=== PATIENT | male | born 1940 | race Caucasian/White ===

== ENCOUNTER 2020-03-29 11:48 | Inpatient (IN) | payer MEDICARE, SELFPAY ==
[2020-03-29] VITALS (34 sets, daily range): BP systolic 98–163; BP diastolic 56–115; PULSE 74–95; RESP 16–32; TEMP 35.6–36.8; O2SAT 95–99; BMI 79.4; BMI 37.8
--- NOTE | ~2020-03-29 | XR_ITS ---
EXAMINATION: XR chest 1V portable DATE: 04/15/2020 07:59 INDICATION: Leukocytosis. Congestive heart failure. Pneumonia. Dyspnea. TECHNIQUE: A single frontal view of the chest was obtained. COMPARISON: Chest 2 views 04/12/2020, chest CT 03/29/2020 FINDINGS: There are small pleural effusions. There are airspace opacities at the lung bases. No pneum othorax. Cardiomegaly is noted. Calcified left hilar lymph nodes are consistent with old granulomatou s disease. There is a left chest wall pacer with leads in the right atrium and right ventricle. There is an electronic implant in left anterior chest wall. IMPRESSION: 1. Stable small pleural effusions. 2. Stable airspace opacities at the lung bases, consistent with atelectasis or less likely pneumonia. 3. Cardiomegaly. Reviewed, dictated and finalized at location A.
--- NOTE | ~2020-03-29 | XR_ITS ---
EXAMINATION: XR chest 2V DATE: 04/12/2020 14:44 INDICATION: Congestive heart failure exacerbation TECHNIQUE: frontal and lateral views of the chest were obtained. COMPARISON: Chest radiograph dated 04/02/2020 FINDINGS: Opacities at the left mid to lower and right lower lung zones with blunting at the posterior sulci in left costophrenic angle consistent with small bilateral pleural effusions, left greater than right a nd associated basilar atelectasis and/or pneumonia. No increased interstitial pattern to suggest sign ificant pulmonary edema. No pneumothorax. Cardiomegaly. Dual lead pacemaker/AICD seen with leads proj ecting over the expected locations of the right atrium and right ventricle. Implantable cardiac mon itor projecting along the inferomedial anterior left chest wall. Mild thoracic spondylosis. IMPRESSION: 1. Small bilateral pleural effusions, left greater than right, with associated basilar atelectasis an d/or pneumonia. 2. Cardiomegaly. No definitive pulmonary edema. Reviewed, dictated and finalized at location B. IMPRESSION: 1. Small bilateral pleural effusions, left greater than right, with associated basilar atelectasis and/or pneumonia. 2. Cardiomegaly. No definitive pulmonary edema.
--- NOTE | ~2020-03-29 | CT_ITS ---
EXAMINATION: CTA chest PE protocol DATE: 03/29/2020 15:35 INDICATION: Shortness of breath TECHNIQUE: Computed tomography angiography (CTA) of the chest was performed with 100 mL Omnipaque-350 intravenous contrast timed to evaluate the pulmonary arteries. Coronal maximum intensity projection 3D-reconstructions were created by the technologist. Automated exposure control and iterative reconst ruction technique were employed. Exam dose: 1062.57 mGy-cm total exam DLP. COMPARISON: 03/19/2016 2 view chest 03/29/2020 portable AP chest FINDINGS: There is diagnostic contrast enhancement of the central pulmonary arteries and no evidence of pulmonary embolism. No thoracic aortic aneurysm. Aortic calcification. Borderline heart size. Coronary artery calcifications. Left-sided pacemaker device with leads in the right atrium and right ventricle. Left medial anterior chest wall subcutaneous clinical research monitor device . No hilar or mediastinal mass lesion or lymphadenopathy. There are calcified left hilar nodes consiste nt with old granulomatous disease. There are bilateral pleural calcifications suggesting possible prior exposure to asbestos. There are large bilateral pleural effusions. There is associated compressive atelectasis involving pr imarily the lower lobes; minimal upper lobe dependent atelectasis. Diffuse osteopenia. Compression fracture deformity of L1. IMPRESSION: No evidence of pulmonary embolism Large pleural effusion, likely secondary to congestive heart failure, associated prominent compressiv e atelectasis of the lower lobes Occasional pleural calcifications suggesting prior asbestos exposure Reviewed, dictated and finalized at Location A. Reviewed, dictated and finalized at location B. IMPRESSION: No evidence of pulmonary embolism Large pleural effusion, likely secondary to congestive heart failure, associate d prominent compressive atelectasis of the lower lobes Occasional pleural calcifications suggesting prior asbestos exposure
--- NOTE | ~2020-03-29 | XR_ITS ---
EXAMINATION: XR chest 1V portable EXAM DATE: 04/02/2020 09:02 INDICATION: CHF, shortness of breath. Possible pneumonia. TECHNIQUE: Portable AP frontal chest x-ray was obtained. Comparison is made to prior examination from 03/29/2020. FINDINGS: There is a dual lead pacemaker/AICD seen with leads projecting over the expected locations of the right atrial appendage and right ventricle. Mild cardiomegaly and pulmonary vascular congestio n. Hazy ill-defined lower lung zone opacity could be layering small pleural effusions, probably with mild superimpose edema and/or pneumonia. There is no pneumothorax suspected. There are no osseous abn ormalities identified. IMPRESSION: 1. Findings consistent with CHF exacerbation. 2. Basilar pneumonia not excludable. Reviewed, dictated and finalized at location B.
--- NOTE | ~2020-03-29 | XR_ITS ---
EXAMINATION: XR chest 1V portable DATE: 03/29/2020 13:00 INDICATION: Shortness of breath. TECHNIQUE: A single frontal view of the chest was obtained. COMPARISON: Chest 2 views 03/19/2016 FINDINGS: There are airspace opacities in right mid and lower lung zones and left lower lung zone. Th ere is a small left pleural effusion. No pneumothorax. The heart size is normal. There is a left ches t wall pacer with leads in the right atrium and right ventricle. There is an electronic implant in le ft chest wall. IMPRESSION: 1. Airspace opacities in right mid and lower lung zones and left lower lung zone, consistent with ate lectasis versus pneumonia. 2. Small left pleural effusion. Reviewed, dictated and finalized at location A. IMPRESSION: 1. Airspace opacities in right mid and lower lung zones and left lower lung zon e, consistent with atelectasis versus pneumonia. 2. Small left pleural effusion.
--- NOTE | 2020-03-29 12:02 | ED.SOB ---
HPI - SOB/Dyspnea General Chief Complaint: Shortness of Breath/Dyspnea Stated Complaint: SOB Time Seen by Provider: 03/29/20 12:02 History of Present Illness HPI Narrative: 79 yo male w/ h/o heart disease brought in by EMS from [facility] for SOB. He says that he has been having SOB for quite some time. Worse the past 2 nights. Unable to sleep. This is associated with Edema of all extremities. He had recent knee replacement surgery. He is not aware of any heart failure history, but does have extensive cardiac history any is on diuretics. He is on ticagralor and brillinta. No dark or bloody stools. Related Data Home Medications Medication Instructions Recorded Confirmed ascorbic acid (vitamin C) [Vitamin 500 mg PO DAILY 03/29/20 03/29/20 C] atorvastatin 80 mg PO DAILY 03/29/20 03/29/20 ezetimibe 10 mg PO DAILY 03/29/20 03/29/20 ferrous sulfate 325 mg PO DAILY 03/29/20 03/29/20 fludrocortisone 0.1 mg PO DAILY 03/29/20 03/29/20 furosemide 20 mg PO DAILY 03/29/20 03/29/20 furosemide [Lasix] 40 mg PO DAILY 03/29/20 03/29/20 metoprolol tartrate 25 mg PO DAILY 03/29/20 03/29/20 ondansetron HCl [Zofran] 4 mg PO Q6H PRN 03/29/20 03/29/20 oxycodone-acetaminophen 1 - 2 tablet PO Q4H PRN 03/29/20 03/29/20 potassium chloride 10 meq PO DAILY 03/29/20 03/29/20 prednisone 20 mg PO DAILY 03/29/20 03/29/20 sertraline 50 mg PO DAILY 03/29/20 03/29/20 tamsulosin 0.4 mg PO DAILY 03/29/20 03/29/20 ticagrelor [Brilinta] 90 mg PO BID 03/29/20 03/29/20 vitamin B complex 1 tablet PO DAILY 03/29/20 03/29/20 warfarin 3 mg PO DAILY 03/29/20 03/29/20 Allergies Allergy/AdvReac Type Severity Reaction Status Date / Time No Known Allergies Allergy Verified 03/29/20 12:15 Review of Systems Review of Systems: All systems reviewed & are unremarkable except as noted in HPI and below Constitutional: Constitutional: Denies chills and Denies fever(s) Cardiovascular: Cardiovascular: Denies chest pain Respiratory: Respiratory: Denies cough and Reports dyspnea Gastrointestinal: Gastrointestinal: Denies abdominal pain, Denies nausea and Denies vomiting Genitourinary: Genitourinary: Denies hematuria and Denies dysuria Neurologic: Denies dizziness and Denies numbness [facility] Past Medical History Medical History (Updated 03/30/20 @ 19:23 by Jarred Thomas MD) Adrenal insufficiency Benign prostatic hyperplasia Chronic anemia Chronic kidney disease Congestive heart failure Coronary artery disease With history of stents. Current use of intermediate manager anticoagulation On long-term warfarin for history of DVT and PE. 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 History of deep venous thrombosis or pulmonary embolus History of both DVT and PE, on long-term warfarin. Obstructive sleep apnea on CPAP Osteoarthritis Peptic ulcer (~1959) Shingles (~2011) Ventricular tachycardia Status post ICD insertion. Surgical History Surgical History (Updated 03/29/20 @ 22:03 by Gabby Douglass PA-C) History of bilateral knee arthroplasty Right: 04/11/2018. Left: 02/26/2020. History of cardiac catheterization (~01/2019) With history of stents. History of loop recorder Presence of combination internal cardiac defibrillator (ICD) and pacemaker (~01/2019) Family History Family History (Updated 03/29/20 @ 22:04 by Gabby Douglass PA-C) Father Bone cancer Social History Social History (Updated 03/29/20 @ 22:23 by Gabby Douglass PA-C) Social History: Surrogate decision maker: Kassie Garcia, spouse. Code status: Do not resuscitate. Smoking status: Former smoker Tobacco type: cigarettes and cigars Second hand tobacco smoke exposure: Yes Alcohol intake: never Substance use: never Additional living arrangements comments: Resides in [place] with his . 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 Gender identity (if verbalized by the patient): Mal
--- NOTE | 2020-03-29 12:11 | ECG_ITS ---
Measurements Intervals [place] Rate: 79 P: -12 GA: 108 QRS: 255 QRSD: 50 T: 25 QT: 294 QTc: 337 Interpretive Statements ATRIAL FIBRILLATION VENTRICULAR PREMATURE COMPLEXES RIGHT BUNDLE BRANCH BLOCK LOW QRS VOLTAGE- DIFFUSE LEADS BASELINE ARTIFACT- I, II, AVR, V1, V6 ABNORMAL ECG Electronically Signed On 03-30-2020 6:53:18 CDT by Rodrigo Padron D.O.
[2020-03-29 12:36] LABS: Basophils Percent Auto 0.1 % (0.2-1.2); Eosinophils Percent Auto 0.1 % (0-4.4); Hematocrit 31.3 % (42.0-52.0); Hemoglobin 10.5 g/dL (14.0-18.0); Immature Granulocyte Absolute 0.52 K/mm3 (0.00-0.031); Immature Granulocyte Percent A 3.4 % (0-0.5); Lymphocytes Absolute Auto 0.73 K/mm3 (0.9-3.2); Lymphocytes Percent Auto 4.8 % (18.3-44.2); Mean Corpuscular HGB Conc 33.5 g/dl (32-36); Mean Corpuscular Hemoglobin 30.3 pg (26-34); Mean Corpuscular Volume 90.5 fl (80-100); Mean Platelet Volume 9.5 fl (7.4-10.4); Monocytes Percent Auto 6.5 % (2.6-8.5); Neutrophils Percent Auto 85.1 % (45.5-73.1); Platelet Count Result 206 k/mm3 (150-375); Red Blood Count 3.46 M/mm3 (4.6-6.20); Red Cell Distribution Width 14.6 % (11.5-14.5); White Blood Count 15.3 K/mm3 (4.5-10.0)
[2020-03-29] MEDS: FUROSEMIDE INJ 100 MG/10 ML VIAL 80 MG IV PUSH (12:36)
[2020-03-29 12:43] LABS: Alanine Aminotransferase 50 U/L (4-50); Albumin Level 2.3 g/dL (3.5-5.1); Alkaline Phosphatase 122 U/L (38-126); Anion Gap 5 mmol/L (8-16); Aspartate Amino Transferase 39 U/L (17-59); Bilirubin,Total 0.8 mg/dL (0.2-1.3); Blood Urea Nitrogen 27 mg/dL (9-20); Calcium 7.9 mg/dL (8.4-10.2); Carbon Dioxide 31 mmol/L (22-30); Chloride 97 mmol/L (98-107); Estimated CRCL calculation 82 ml/min; Estimated Glomerular Filt Rate > 60; Glucose 93 mg/dL (75-110); Potassium 3.7 mmol/L (3.4-5.0); Sodium 133 mmol/L (137-145)
[2020-03-29 12:45] LABS: Prothrombin Time 21.9 Seconds (11.1-14.7)
[2020-03-29 12:46] LABS: Partial Thromboplastin Time 27.7 SECONDS (22.3-36.8)
[2020-03-29] MEDS: NITROGLYCERIN OINTMENT 1 INCH DOSE 0.5 INCH TRANSDERM (12:54)
[2020-03-29 13:00] LABS: NT Pro B Type Natriuretic Pept 10800 PG/ML (5-100); Troponin I 0.254 ng/mL (0.000-0.034)
[2020-03-29 15:55] LABS: Add Urine Microscopic? YES; Amorphous Sediment Urine Few; Appearance Urine Clear (Clear); Bilirubin Urine Negative (Negative); Blood Urine 2+ (Negative); Color Urine Straw (Yellow); Glucose Urine UA Negative (Negative); Ketones Urine Negative (Negative); Leukocyte Esterase Ur Negative LEU/UL (Negative); Mucus Urine Rare /lpf; Nitrate Urine Negative (Negative); Protein Urine 1+ mg/dL (Negative); RBC Urine >75 /hpf (0-2); Specific Grav Ur 1.009 (1.001-1.035); Squamous Epithelial Cell Urine Rare /hpf (Few); Urobilinogen Urine Negative mg/dL (<2.0); WBC Urine 0-3 /hpf
--- NOTE | 2020-03-29 17:11 | PC.NURSE ---
This patient, Magnus Garcia, was admitted to Intensive Care Unit-1. Patient/family oriented to hospital policies and general routines including ID bracelet, bed and alarms, visiting hours, pain management, procedures, bathroom and other care routines, personal items, smoking policy, room service/diet, and visiting hours. Valuables list has been completed. Information on how to activate the Rapid Response Team has been discussed. Patient/Family are encouraged to report perceived risks to care and to ask questions if they do not understand what they are told or what they should do.
[2020-03-29 19:16] LABS: Troponin I 0.223 ng/mL (0.000-0.034)
--- NOTE | 2020-03-29 19:30 | PM.IMHP ---
H&P: HPI History of Present Illness Date/Time: 03/29/20 19:30 <Gabby Douglass PA-C - Last Filed: 03/30/20 00:21> Chief complaint: Shortness of breath. <Gabby Douglass PA-C - Last Filed: 03/30/20 00:21> Narrative: Magnus Garcia is a 79-year-old male with multiple medical problems including coronary artery disease with history of stents, ventricular tachycardia status post PM/ICD insertion, congestive heart failure, history of DVT and pulmonary embolism on long-term warfarin, chronic kidney disease, recent diagnosis of adrenal insufficiency on prednisone and fludrocortisone, and obstructive sleep apnea who presented to the emergency department earlier today via EMS from [facility] for evaluation of shortness of breath. He gets a majority of his care in [place] but reports that he did not want to be transferred there today because ?I just felt so bad.? He is currently undergoing rehab at [facility] after left knee replacement on 02/26/2020, done at [facility]. I did review his discharge summary and it looks like he had a complicated postoperative course including severe hypotension for several hours with subsequent acute kidney injury requiring dialysis x1, acute blood loss anemia requiring transfusion. It looks like he was also started on prednisone 10 mg daily for presumed adrenal insufficiency looking through his medications now, his prednisone has now doubled to 20 mg daily and he has been started on fludrocortisone as well. In any event, at baseline it sounds as though he has chronic dyspnea on exertion which unfortunately has gotten worse the past several weeks to the point where it sounds as though he was in near respiratory extremis this morning. He has not slept well the past couple of days due to orthopnea and also notes ever increasing edema, now up to the flanks. He assumes that he is getting his medications correctly at [facility], but admits that he does not ask what he is being given. He has not been given a heart healthy diet at the rehab facility but he says that he never adds extra salt to his food. He states compliance with his CPAP. He has not had chest pain, pleuritic pain, or palpitations. He denies cough, cold and flu symptoms, fever, and sick contacts. No nausea or vomiting. <Gabby Douglass PA-C - Last Filed: 03/30/20 00:21> Review of Systems Review of Systems: Narrative: Twelve systems were reviewed with pertinent positives and negatives as per HPI. He has episodes of occasional lightheadedness/dizziness. He has not had any recent syncopal episodes, with the last episode of being just prior to his ICD being inserted. No fever, chills, or sweats. He denies headache. No sinus congestion, rhinorrhea, otalgia, or odynophagia. Denies dysphagia and concerns for aspiration. No known history of liver disease or ascites. He has not noticed a change in urine output. No dysuria. He has not had much pain in his left knee. He is doing okay with therapy, ambulating with a walker however he is somewhat limited by his shortness of breath. Except as documented, all other systems were reviewed and are negative. <Gabby Douglass PA-C - Last Filed: 03/30/20 00:21> [facility] Past Medical History Medical History: Medical History (Updated 03/29/20 @ 22:32 by Gabby Douglass PA-C) Adrenal insufficiency Benign prostatic hyperplasia Chronic anemia Chronic kidney disease Congestive heart failure Coronary artery disease With history of stents. Current use of jail anticoagulation On long-term warfarin for history of DVT and PE. 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 History of deep venous thrombosis or pulmonary embolus History of both DVT and PE, on long-term warfarin. Obstructive sleep apnea on CPAP Osteoarthritis Peptic ulcer (~1959) Shingles (~2011) Ventricular tachycardia Status post ICD insertion. <Gabby Douglass PA-C - Last Filed: 03/30/20 00:21> [place]
[2020-03-29 20:56] LABS: Troponin I 0.237 ng/mL (0.000-0.034)
[2020-03-29 21:04] LABS: Magnesium 1.7 mg/dL (1.6-2.3); Potassium 3.4 mmol/L (3.4-5.0)
[2020-03-29] MEDS: POTASSIUM CHLORIDE 20 MEQ PACKET (FOR LIQUID) PO (22:13)
[2020-03-29] MEDS: MAGNESIUM SULF 1 GM/D5W 100 ML 1 GM/100 ML BAG IVPB (22:13)
[2020-03-30] VITALS (19 sets, daily range): BP systolic 88–124; BP diastolic 53–65; PULSE 75–99; RESP 12–20; TEMP 36.1–36.9; O2SAT 95–99
[2020-03-30 04:41] LABS: Basophils Percent Auto 0.1 % (0.2-1.2); Eosinophils Absolute Auto 0.1 K/mm3 (0-0.3); Eosinophils Percent Auto 0.4 % (0-4.4); Hematocrit 28.1 % (42.0-52.0); Hemoglobin 9.5 g/dL (14.0-18.0); Immature Granulocyte Absolute 0.25 K/mm3 (0.00-0.031); Immature Granulocyte Percent A 1.8 % (0-0.5); Lymphocytes Absolute Auto 1.18 K/mm3 (0.9-3.2); Lymphocytes Percent Auto 8.4 % (18.3-44.2); Mean Corpuscular HGB Conc 33.8 g/dl (32-36); Mean Corpuscular Hemoglobin 30.2 pg (26-34); Mean Corpuscular Volume 89.2 fl (80-100); Mean Platelet Volume 9.3 fl (7.4-10.4); Monocytes Absolute Auto 1.4 K/mm3 (0.1-0.6); Monocytes Percent Auto 10.2 % (2.6-8.5); Neutrophils Absolute Auto 11.1 K/mm3 (1.3-6.7); Neutrophils Percent Auto 79.1 % (45.5-73.1); Platelet Count Result 167 k/mm3 (150-375); Red Blood Count 3.15 M/mm3 (4.6-6.20); Red Cell Distribution Width 14.6 % (11.5-14.5)
[2020-03-30 04:55] LABS: Alanine Aminotransferase 43 U/L (4-50); Alkaline Phosphatase 101 U/L (38-126); Anion Gap -1 mmol/L (8-16); Aspartate Amino Transferase 34 U/L (17-59); Bilirubin,Total 0.5 mg/dL (0.2-1.3); Blood Urea Nitrogen 26 mg/dL (9-20); Calcium 7.9 mg/dL (8.4-10.2); Carbon Dioxide 34 mmol/L (22-30); Chloride 99 mmol/L (98-107); Estimated CRCL calculation 101 ml/min; Estimated Glomerular Filt Rate > 60; Glucose 86 mg/dL (75-110); Phosphorus 3.4 mg/dL (2.5-4.5); Potassium 3.3 mmol/L (3.4-5.0); Sodium 132 mmol/L (137-145)
[2020-03-30] MEDS: POTASSIUM CHLORIDE 20 MEQ PACKET (FOR LIQUID) 40 MEQ PO (05:56)
[2020-03-30] MEDS: TAMSULOSIN HCL 0.4 MG CAPSULE PO (08:10)
[2020-03-30] MEDS: EZETIMIBE 10 MG TABLET PO (08:10)
[2020-03-30] MEDS: VITAMIN B COMPLEX CAPSULE 1 CAP PO (08:10)
[2020-03-30] MEDS: POTASSIUM CHLORIDE 10 MEQ TABLET.ER PO (08:11)
[2020-03-30] MEDS: FLUDROCORTISONE ACETATE 0.1 MG TABLET PO (08:11)
[2020-03-30] MEDS: predniSONE 20 MG TABLET PO (08:11)
[2020-03-30] MEDS: ASCORBIC ACID 500 MG TABLET PO (08:11)
[2020-03-30] MEDS: ATORVASTATIN 40 MG TABLET 80 MG PO (08:11)
[2020-03-30] MEDS: SERTRALINE HCL 50 MG TABLET PO (08:11)
[2020-03-30] MEDS: FERROUS SULFATE 324 MG TABLET PO (08:11)
[2020-03-30] MEDS: METOPROLOL TARTRATE 25 MG TABLET PO (08:12)
[2020-03-30] MEDS: TICAGRELOR 90 MG TABLET PO ×2 (08:12→17:39)
[2020-03-30] MEDS: FUROSEMIDE INJ 40 MG/4 ML VIAL 20 MG IV PUSH ×2 (08:12→20:18)
--- NOTE | 2020-03-30 10:29 | PM.CNCAR ---
Assessment and Plan Additional Plan 79-year-old man reporting history of ischemic heart disease appears to have chronic persistent atrial fibrillation and PCI in a of multi multi vessels just over 1 year ago at another hospital. He presents here with the obvious picture of volume overload in biventricular congestive heart failure. He is on appropriate medical regimen although it is unusual that he is not on an KAITLIN-inhibitor or ARB and is also unusual in my opinion that he is taking both furosemide and fludrocortisone. I am going to recommend stopping the fludrocortisone at this time as it makes no sense to be giving him volume expanders at this moment. I do not believe that he is a candidate for ischemia evaluation given his history particularly given his desire to be do not resuscitate status. There is no clinical evidence in my opinion of an acute coronary syndrome. 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 It is his impression he has an appointment with Dr. Murray on of next week. It is certainly possible that he will be discharged before that time Thien Mederos MD [facility] History of Present Illness History of Present Illness Consult date/time: 03/30/20 10:29 Consult reason: congestive heart failure Reason For Visit: Shortness of breath. Narrative: This is a 79-year-old gentleman who is admitted to the hospital with picture of volume overload and CHF I am asked to see him by the hospitalist to assist with his care while he is here at [facility]. He has a rather complex cardiac history and is unknown to the physicians here at [facility] as he receives none of his medical or cardiac care in this institution. The patient states that he came into the emergency room last night at the request of his family because of symptoms of progressively worsening volume overload significant lower extremity edema and shortness of breath which has been worsening for the last several weeks. He is not having any symptoms of chest pain. He reports that he is feeling better than he was last evening after receiving some IV furosemide last night. He also had troponin levels done which prompted requesting me to see him in consultation which are minimally elevated but not in a pattern suggestive of an acute coronary syndrome and once again he is not having any chest pain. Patient states that he has a history of coronary artery disease which was identified in January of 2019 at [facility]. He states he was hospitalized there and occur 1 or to other hospitals in the to 3 months prior to that with syncopal episodes that were of unclear etiology. He had a loop recorder placed and he then had a no other syncopal episode with a significant pause and he was told to come to the hospital. He states that a pacemaker/ICD device was placed he underwent a cardiac catheterization which demonstrated multivessel coronary artery disease he was treated by Dr. Murray who according to the patient performed a multivessel intervention he was also seen by the resident in diagnostic radiology, Dr. Watts at [facility] and had his pacemaker ICD device placed there. He follows with these physicians actively. He can't really tell me much about his left ventricular systolic function in terms of that part of his history he apparently also has atrial fibrillation and presumably for that reason is anticoagulated with warfarin. His medical regimen for all of this includes atorvastatin, Zetia, furosemide, fludrocortisone, metoprolol and ticagrelor. He is also on warfarin. Patient has significant mild pulmonary congestion and bilateral pleural effusions noted on CT scan interestingly the pleural effusions were not obvious to me on his plain chest x-ray. In this situation where seeing him in consultation. A at the moment his standard medical regimen has been continued he is receiving fu
[2020-03-30 13:45] LABS: SARS-CoV-2 RNA PCR Negative
--- NOTE | 2020-03-30 16:12 | PM.IMPN ---
Progress Note: A&P Assessment and Plan (1) Acute exacerbation of congestive heart failure: Code(s): I50.9 - Heart failure, unspecified Status: Acute Assessment and Plan: 03/30/20 16:12 patient is a 79-year-old male with history of multivessel coronary artery disease with ICD suggesting most likely patient has significant systolic dysfunction, also pacemaker and history and Atrial fibrillation for which patient is taking warfarin, patient presented emergency department with a complaint shortness of breath lower extremity edema patient states even slight movement a.m. talking causes him to become short of breath, significant orthopnea has not been able to sleep very well last couple of nights, normally patient is seen at [facility] with his change lead and primary care providers however he presented to the hospital because he was quite symptomatic, diuresed with IV Lasix, is seen by the Cardiology agrees with current management him once patient is clinically stable he can be followed up with his change lead, plan is to diurese the patient have have PT OT evaluate the patient once clinically stable. patient was tested for COVID-19 is negative (2) Anasarca: Code(s): R60.1 - Generalized edema Status: Acute Assessment and Plan: most likely secondary to volume overload from congestive heart failure continue to monitor (3) Current use of termite inspector anticoagulation: Code(s): Z79.01 - termite inspector (current) use of anticoagulants Status: Acute Assessment and Plan: patient is taking warfarin for atrial fibrillation will monitor INR (4) Chronic kidney disease: Code(s): N18.9 - Chronic kidney disease, unspecified Status: Acute Assessment and Plan: acute on chronic kidney disease patient is being diuresed will closely monitor patient kidney function (5) Chronic anemia: Code(s): D64.9 - Anemia, unspecified Status: Acute Assessment and Plan: patient clinically stable (6) Obstructive sleep apnea on CPAP: Code(s): G47.33 - Obstructive sleep apnea (adult) (pediatric); Z99.89 - Dependence on other enabling machines and devices Status: Acute Assessment and Plan: will continue CPAP from (7) Adrenal insufficiency: Code(s): E27.40 - Unspecified adrenocortical insufficiency Status: Acute Assessment and Plan: patient is being treated with steroid (8) Coronary artery disease: Code(s): I25.10 - Atherosclerotic heart disease of [place] coronary artery without angina pectoris Status: Acute Assessment and Plan: patient with a multivessel coronary artery disease on ICD suggested significant systolic dysfunction (9) Benign prostatic hyperplasia: Code(s): N40.0 - Benign prostatic hyperplasia without lower urinary tract symptoms Status: Acute Assessment and Plan: will continue home regimen (10) Elevated troponin: Code(s): R77.8 - Other specified abnormalities of plasma proteins Status: Acute Assessment and Plan: elevated tropes most likely demand ischemia unlikely acute coronary syndrome patient is seen by change lead does not recommend any ischemic workup Additional Plan The patient has been admitted to the hospitalist service for further treatment of CHF exacerbation, etiology of which may be due to recent hospitalization requiring IV fluid resuscitation, dietary indiscretion, the addition of prednisone and fludrocortisone, and/or dietary indiscretion. With diffuse anasarca and low total protein and albumin, concerns for nephrotic syndrome however there is only 1+ protein in his urine. He will be diuresed as his blood pressure allows close monitoring of volume status. I am not certain if diuresing will be enough to improve his pleural effusion, and he may need a thoracentesis but not at this time as he is anticoagulated. Given the soft blood pressures I will
--- NOTE | 2020-03-30 16:39 | PC.NURSE ---
Patient transferred to room 242 at 1615, report given to Lucila PICKARD, all belongings sent with patient
[2020-03-30] MEDS: WARFARIN (*PBKC) 3 MG TABLET PO (17:39)
[2020-03-30 23:08] LABS: Free T4 Free Thyroxine Reflex 1.72 ng/dL (0.78-2.19)
[2020-03-31] VITALS (14 sets, daily range): BP systolic 91–138; BP diastolic 58–98; PULSE 57–90; RESP 16–22; TEMP 35.8–36.8; O2SAT 94–99
[2020-03-31 00:08] LABS: Total Triiodothyronine (T3) 0.58 NG/ML (0.97-1.69)
[2020-03-31 05:24] LABS: Hematocrit 29.1 % (42.0-52.0); Hemoglobin 9.5 g/dL (14.0-18.0); Mean Corpuscular HGB Conc 32.6 g/dl (32-36); Mean Corpuscular Hemoglobin 29.8 pg (26-34); Mean Corpuscular Volume 91.2 fl (80-100); Mean Platelet Volume 9.7 fl (7.4-10.4); Platelet Count Result 159 k/mm3 (150-375); Red Blood Count 3.19 M/mm3 (4.6-6.20); Red Cell Distribution Width 14.5 % (11.5-14.5); White Blood Count 13.9 K/mm3 (4.5-10.0)
[2020-03-31 05:43] LABS: Anion Gap 1 mmol/L (8-16); Blood Urea Nitrogen 26 mg/dL (9-20); Calcium 7.9 mg/dL (8.4-10.2); Carbon Dioxide 33 mmol/L (22-30); Chloride 99 mmol/L (98-107); Estimated CRCL calculation 114 ml/min; Estimated Glomerular Filt Rate > 60; Glucose 90 mg/dL (75-110); Potassium 3.8 mmol/L (3.4-5.0); Sodium 133 mmol/L (137-145)
[2020-03-31] MEDS: FERROUS SULFATE 324 MG TABLET PO (09:17)
[2020-03-31] MEDS: POTASSIUM CHLORIDE 10 MEQ TABLET.ER PO (09:18)
[2020-03-31] MEDS: predniSONE 20 MG TABLET PO (09:18)
[2020-03-31] MEDS: ATORVASTATIN 40 MG TABLET 80 MG PO (09:18)
[2020-03-31] MEDS: EZETIMIBE 10 MG TABLET PO (09:18)
[2020-03-31] MEDS: ASCORBIC ACID 500 MG TABLET PO (09:18)
[2020-03-31] MEDS: METOPROLOL TARTRATE 25 MG TABLET PO (09:19)
[2020-03-31] MEDS: FUROSEMIDE INJ 40 MG/4 ML VIAL 20 MG IV PUSH ×2 (09:19→20:19)
[2020-03-31] MEDS: VITAMIN B COMPLEX CAPSULE 1 CAP PO (09:20)
[2020-03-31] MEDS: SERTRALINE HCL 50 MG TABLET PO (09:20)
[2020-03-31] MEDS: TICAGRELOR 90 MG TABLET PO ×2 (09:20→17:51)
[2020-03-31] MEDS: TAMSULOSIN HCL 0.4 MG CAPSULE PO (09:20)
--- NOTE | 2020-03-31 11:03 | PM.PNCARD ---
Progress Note: A&P Additional Plan 79-year-old man with: Longstanding ischemic heart disease presenting with volume overload. Patient is being managed with intravenous furosemide and seems to be responding quite well. We will continue this for at least another day or 2 and then he should be able to be discharged for follow-up with his established physicians. Thien Mederos MD [facility] Subjective Date/time seen: Date of service:03/31/20 11:03 Interval history: Follow-up visit in this 79-year-old man with shortness of breath / volume overload. Underlying ischemic heart disease receives his care elsewhere. Patient states he is feeling reasonably well today he is in the bedside chair with his feet elevated. Appears to have been diuresing fairly well. Would like to be discharged before his established appointment with his physician middle of this coming week Exam Const: General: comfortable and no acute distress HENMT: Mouth: Yes moist mucous membranes Eyes: Sclera: sclerae normal Neck: Neck: supple Other: difficult to assess JVD given his body habitus Resp: Effort & Inspection: normal respiratory effort Other: breath sounds relatively clear auscultated anteriorly S the patient was in the bedside chair Cardio: Rate: regular rate GI: Auscultation: normal bowel sounds Skin: General skin exam: normal color Neuro: Cognition (Neuro): normal cognition Extrem: Other: patient with severe bilateral lower extremity edema appears to be some better than yesterday and is soft Objective Data Vital Signs Vital Signs: Vital Signs - 24 hr 03/30/20 12:00 03/30/20 14:00 03/30/20 16:00 Temperature 36.3 C L 36.9 C Pulse Rate 89 87 80 Respiratory Rate 18 20 Blood Pressure 98/64 L 104/57 L Pulse Oximetry 98 97 03/30/20 18:00 03/30/20 20:00 03/30/20 21:00 Temperature 36.3 C L 36.6 C Pulse Rate 87 96 76 Respiratory Rate 20 20 Blood Pressure 124/53 L 102/60 Pulse Oximetry 95 95 03/30/20 21:33 03/31/20 00:00 03/31/20 03:13 Temperature 35.9 C L Pulse Rate 90 90 79 Respiratory Rate 17 20 19 Blood Pressure 109/63 Pulse Oximetry 95 99 97 03/31/20 04:00 03/31/20 06:00 03/31/20 09:15 Temperature 36.8 C 35.8 C L Pulse Rate 76 86 57 L Respiratory Rate 22 H 18 Blood Pressure 113/70 91/73 L Pulse Oximetry 98 97 03/31/20 09:19 Temperature Pulse Rate 76 Respiratory Rate Blood Pressure Pulse Oximetry Intake/Output Intake/Output: Intake & Output 03/28/20 03/29/20 03/30/20 03/31/20 23:59 23:59 23:59 23:59 Intake Total 1000 1300 390 Output Total 2500 1225 750 Balance -1500 75 -360 Meds/Results Medications: Active Medications Generic Name Dose Route Start Last Admin Trade Name Freq PRN Reason Stop Dose Admin Ascorbic Acid 500 mg 03/30/20 09:00 03/31/20 09:18 Vitamin C PO 04/29/20 09:01 500 mg DAILY CHARAN Administration Atorvastatin Calcium 80 mg 03/30/20 09:00 03/31/20 09:18 Lipitor PO 80 mg DAILY CHARAN Administration Ezetimibe 10 mg 03/30/20 09:00 03/31/20 09:18 Zetia PO 10 mg DAILY CHARAN Administration Ferrous Sulfate 324 mg 03/30/20 08:00 03/31/20 09:17 Ferrous Sulfate PO 324 mg DAILY@0800 CHARAN Administration Furosemide 20 mg 03/30/20 09:00 03/31/20 09:19 Lasix Inj IV PUSH 20 mg Q12HR CHARAN Administration Metoprolol Tartrate 25 mg 03/30/20 09:00 03/31/20 09:19 Lopressor PO 25 mg DAILY CHARAN Administration Miconazole Nitrate 1 applic 03/30/20 21:00 03/31/20 09:20 [place] TOPICAL 1 applic Q12HR CHARAN Administration Ondansetron HCl 4 mg 03/29/20 23:09 Zofran Odt PO Q6H PRN Nausea Potassium Chloride 10 meq 03/30/20 08:00 03/31/20 09:18 Kcl Tablet PO 10 meq DAILY@0800 CHARAN Administration Prednisone 20 mg 03/30/20 08:00 03/31/20 09:18 Prednisone PO 20 mg DAILY@0800 CHARAN Administration Sertraline HCl 50 mg 03/30/20 09:00 03/31/20 09:20 Zo
--- NOTE | 2020-03-31 11:19 | PM.IMPN ---
Progress Note: A&P Assessment and Plan (1) Acute exacerbation of congestive heart failure: Code(s): I50.9 - Heart failure, unspecified Status: Acute Assessment and Plan: 03/31/20 11:19patient is a 79-year-old male with history of multivessel coronary artery disease with ICD suggesting most likely patient has significant systolic dysfunction, also pacemaker and history and Atrial fibrillation for which patient is taking warfarin, patient presented emergency department with a complaint shortness of breath lower extremity edema patient states even slight movement a.m. talking causes him to become short of breath, significant orthopnea has not been able to sleep very well last couple of nights, normally patient is seen at [facility] with his shader and toner and primary care providers however he presented to the hospital because he was quite symptomatic, Today on 03/31 patient being diuresed with IV Lasix, his symptoms are slightly better, instructed patient to limit water intake and will keep his lower extremities elevated, he is seen by the Cardiology agrees with current management, once patient is clinically stable he can be followed up with his shader and toner, plan is to diurese the patient have have PT OT evaluate the patient once clinically stable. 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: Code(s): Z79.01 - exterminator termite (current) use of anticoagulants Status: Acute Assessment and Plan: patient is taking warfarin for atrial fibrillation will monitor INR (4) Chronic kidney disease: Code(s): N18.9 - Chronic kidney disease, unspecified Status: Acute Assessment and Plan: acute on chronic kidney disease patient is being diuresed will closely monitor patient kidney function (5) Chronic anemia: Code(s): D64.9 - Anemia, unspecified Status: Acute Assessment and Plan: patient clinically stable (6) Obstructive sleep apnea on CPAP: Code(s): G47.33 - Obstructive sleep apnea (adult) (pediatric); Z99.89 - Dependence on other enabling machines and devices Status: Acute Assessment and Plan: will continue CPAP from (7) Adrenal insufficiency: Code(s): E27.40 - Unspecified adrenocortical insufficiency Status: Acute Assessment and Plan: patient is being treated with steroid (8) Coronary artery disease: Code(s): I25.10 - Atherosclerotic heart disease of [place] coronary artery without angina pectoris Status: Acute Assessment and Plan: patient with a multivessel coronary artery disease on ICD suggested significant systolic dysfunction (9) Benign prostatic hyperplasia: Code(s): N40.0 - Benign prostatic hyperplasia without lower urinary tract symptoms Status: Acute Assessment and Plan: will continue home regimen (10) Elevated troponin: Code(s): R77.8 - Other specified abnormalities of plasma proteins Status: Acute Assessment and Plan: elevated tropes most likely demand ischemia unlikely acute coronary syndrome patient is seen by shader and toner does not recommend any ischemic workup Additional Plan The patient has been admitted to the hospitalist service for further treatment of CHF exacerbation, etiology of which may be due to recent hospitalization requiring IV fluid resuscitation, dietary indiscretion, the addition of prednisone and fludrocortisone, and/or dietary indiscretion. With diffuse anasarca and low total protein and albumin, concerns for nephrotic syndrome however there is only 1+ protein in his urine. He will be diuresed as his blood pressure allows close monitoring of volume status. I am not certain if diuresing will be enoug
[2020-03-31] MEDS: WARFARIN (*PBKC) 3 MG TABLET PO (17:51)
[2020-04-01] VITALS (12 sets, daily range): BP systolic 99–118; BP diastolic 58–69; PULSE 70–89; RESP 14–22; TEMP 35.9–36.3; O2SAT 95–100
[2020-04-01 07:49] LABS: Hematocrit 29.1 % (42.0-52.0); Mean Corpuscular HGB Conc 34.4 g/dl (32-36); Mean Corpuscular Hemoglobin 30.2 pg (26-34); Mean Corpuscular Volume 87.9 fl (80-100); Mean Platelet Volume 9.9 fl (7.4-10.4); Platelet Count Result 161 k/mm3 (150-375); Red Blood Count 3.31 M/mm3 (4.6-6.20); Red Cell Distribution Width 14.6 % (11.5-14.5)
[2020-04-01 08:28] LABS: Anion Gap 2 mmol/L (8-16); Blood Urea Nitrogen 26 mg/dL (9-20); Carbon Dioxide 30 mmol/L (22-30); Chloride 101 mmol/L (98-107); Estimated CRCL calculation 135 ml/min; Estimated Glomerular Filt Rate > 60; Glucose 78 mg/dL (75-110); Potassium 4.3 mmol/L (3.4-5.0); Sodium 133 mmol/L (137-145)
[2020-04-01] MEDS: TICAGRELOR 90 MG TABLET PO ×2 (09:28→16:48)
[2020-04-01] MEDS: POTASSIUM CHLORIDE 10 MEQ TABLET.ER PO (09:28)
[2020-04-01] MEDS: VITAMIN B COMPLEX CAPSULE 1 CAP PO (09:28)
[2020-04-01] MEDS: TAMSULOSIN HCL 0.4 MG CAPSULE PO (09:28)
[2020-04-01] MEDS: EZETIMIBE 10 MG TABLET PO (09:28)
[2020-04-01] MEDS: ASCORBIC ACID 500 MG TABLET PO (09:28)
[2020-04-01] MEDS: predniSONE 20 MG TABLET PO (09:28)
[2020-04-01] MEDS: ATORVASTATIN 40 MG TABLET 80 MG PO (09:29)
[2020-04-01] MEDS: METOPROLOL TARTRATE 25 MG TABLET PO (09:29)
[2020-04-01] MEDS: FUROSEMIDE INJ 40 MG/4 ML VIAL 20 MG IV PUSH ×2 (09:29→22:03)
[2020-04-01] MEDS: SERTRALINE HCL 50 MG TABLET PO (09:29)
[2020-04-01] MEDS: FERROUS SULFATE 324 MG TABLET PO (09:30)
--- NOTE | 2020-04-01 12:09 | PM.IMPN ---
Progress Note: A&P Assessment and Plan (1) Acute exacerbation of congestive heart failure: Code(s): I50.9 - Heart failure, unspecified Status: Acute Assessment and Plan: 04/01/20 12:09 patient is a 79-year-old male with history of multivessel coronary artery disease with ICD suggesting most likely patient has significant systolic dysfunction, also pacemaker and history and Atrial fibrillation for which patient is taking warfarin, patient presented emergency department with a complaint shortness of breath lower extremity edema patient states even slight movement or talking causes him to become short of breath, significant orthopnea, has not been able to sleep very well last couple of nights, normally patient is seen at [facility] with his residential youth counselor and primary care providers however he presented to the hospital because he was quite symptomatic, on 03/31 patient being diuresed with IV Lasix, his symptoms are slightly better, instructed patient to limit water intake and will keep his lower extremities elevated, he is seen by the Cardiology agrees with current management, Today patient still complains of Shortness of breath, feels quite swallen, patient is is currently treated with Lasix 20 mg IV b.i.d., will give 1 time dose of Lasix 40 mg IV and will monitor patient's urine output, plan is to diurese the patient have have PT/OT evaluate the patient once clinically stable will discharge him back to his residential youth counselor. 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 Status: Acute Assessment and Plan: patient is taking warfarin for atrial fibrillation will monitor INR (4) Chronic kidney disease: Code(s): N18.9 - Chronic kidney disease, unspecified Status: Acute Assessment and Plan: acute on chronic kidney disease patient is being diuresed will closely monitor patient kidney function (5) Chronic anemia: Code(s): D64.9 - Anemia, unspecified Status: Acute Assessment and Plan: patient clinically stable (6) Obstructive sleep apnea on CPAP: Code(s): G47.33 - Obstructive sleep apnea (adult) (pediatric); Z99.89 - Dependence on other enabling machines and devices Status: Acute Assessment and Plan: will continue CPAP from (7) Adrenal insufficiency: Code(s): E27.40 - Unspecified adrenocortical insufficiency Status: Acute Assessment and Plan: patient is being treated with steroid (8) Coronary artery disease: Code(s): I25.10 - Atherosclerotic heart disease of [place] coronary artery without angina pectoris Status: Acute Assessment and Plan: patient with a multivessel coronary artery disease on ICD suggested significant systolic dysfunction (9) Benign prostatic hyperplasia: Code(s): N40.0 - Benign prostatic hyperplasia without lower urinary tract symptoms Status: Acute Assessment and Plan: will continue home regimen (10) Elevated troponin: Code(s): R77.8 - Other specified abnormalities of plasma proteins Status: Acute Assessment and Plan: elevated tropes most likely demand ischemia unlikely acute coronary syndrome patient is seen by residential youth counselor does not recommend any ischemic workup Subjective Date/time seen: 04/01/20 12:09 patient is a 79-year-old male with history of multivessel coronary artery disease with ICD suggesting most likely patient has significant systolic dysfunction, also pacemaker and history and Atrial fibrillation for which patient is taking warfarin, patient presented emergency department with a complaint shortness of breath lower extremity edema
[2020-04-01 12:32] LABS: INR 1.7; Prothrombin Time 19.7 Seconds (11.1-14.7)
[2020-04-01] MEDS: FUROSEMIDE INJ 40 MG/4 ML VIAL IV PUSH (12:49)
--- NOTE | 2020-04-01 14:08 | PM.PNCARD ---
Progress Note: A&P Assessment and Plan (1) Anasarca: Code(s): R60.1 - Generalized edema Status: Acute Assessment and Plan: Long standing ischemic heart disease presenting with volume overload. Still has a considerable large amount of edema. Weeping at times. Being gently diuresed due to soft blood pressure. Did receive an extra 40 mg of Lasix today. Continue accurate I&O. Monitor renal function electrolytes (2) Acute exacerbation of congestive heart failure: Code(s): I50.9 - Heart failure, unspecified Status: Acute Assessment and Plan: ischemic cardiomyopathies as above. (3) Coronary artery disease: Qualifiers: Coronary Disease-Associated Artery/Lesion type: [place] artery [place] vs. 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 Given additional 1 mg of warfarin this afternoon. Monitor INR. Additional Plan Plan discussed with Dr. Mederos 1420 04/01/2020 Subjective Date/time seen: 04/01/20 14:08 Interval history: Follow-up for: shortness of breath / volume overload. Underlying ischemic heart disease. Date of service: 04/01/2020 Subjective: Tired. Difficulty with moving to do any activity. Shortness of breath is better but still gets short of breath with exertional activity. On room air at this time. Denied chest discomfort. Still has a lot of swelling. Some areas of weeping. Lightheaded if gets up too quickly. Review of Systems Constitutional: Constitutional: Denies chills, Reports fatigue and Reports weakness Eyes: Eyes: Denies blurry vision ENT: Reports Normal hearing present Cardiovascular: Cardiovascular: Denies chest pain, Denies rapid heart rate, Reports edema and Reports dyspnea Respiratory: Respiratory: Reports dyspnea and Denies wheezing Gastrointestinal: Gastrointestinal: Denies abdominal pain and Reports bloating ( Improved) Genitourinary: Genitourinary: Denies hematuria Musculoskeletal: Musculoskeletal: Denies back pain and Reports arthralgias ( left knee postop) Integumentary/Breasts: Skin/Breast: Denies erythema and Denies rash Neurologic: Reports Normal hearing present Psychiatric: Psychiatric: Denies anxiety and Denies depression Endocrine: Endocrine: Reports fatigue Hematologic/Lymphatic: Hematologic/Lymphatic: Denies easy bleeding and Denies easy bruising Allergic/Immunologic: Allergic/Immunologic: Denies throat swelling and Denies tongue swelling Exam Const: General: comfortable and no acute distress Other: Obese white male relatively comfortable appearing in bed. No distress. HENMT: Mouth: Yes moist mucous membranes Eyes: Sclera: sclerae normal Pupils: Equal, round and reactive pupils present Neck: Neck: supple Other: Difficult to assess JVD given his body habitus Resp: Effort & Inspection: normal respiratory effort Auscultation: diminished lung sounds bilateral throughout Cardio: Rate: regular rate Rhythm: abnormal rhythm irregularly irregular GI: Inspection: obesity GI Palp: Yes Soft to palpation Auscultation: normal bowel sounds Urinary Catheter: Urinary Catheter: patent and draining and urine clear Skin: General skin exam: normal color Lesions: no lesions Rashes: no rashes Neuro: Cranial nerves: Yes Equal, round and reactive pupils present Cognition (Neuro): normal cognition Extrem: Other: Severe bilateral lower extremity edema. Edema exte
[2020-04-01] MEDS: WARFARIN (*PBKC) 3 MG TABLET PO (17:39)
[2020-04-02] VITALS (13 sets, daily range): BP systolic 96–106; BP diastolic 56–65; PULSE 75–97; RESP 14–20; TEMP 36–36.2; O2SAT 95–100
[2020-04-02 05:49] LABS: Hematocrit 32.1 % (42.0-52.0); Hemoglobin 10.6 g/dL (14.0-18.0); Mean Corpuscular Hemoglobin 30.5 pg (26-34); Mean Corpuscular Volume 92.2 fl (80-100); Mean Platelet Volume 9.6 fl (7.4-10.4); Platelet Count Result 174 k/mm3 (150-375); Red Blood Count 3.48 M/mm3 (4.6-6.20); Red Cell Distribution Width 14.8 % (11.5-14.5); White Blood Count 16.4 K/mm3 (4.5-10.0)
[2020-04-02 06:02] LABS: INR 1.8; Prothrombin Time 20.5 Seconds (11.1-14.7)
[2020-04-02 06:16] LABS: Anion Gap 1 mmol/L (8-16); Blood Urea Nitrogen 24 mg/dL (9-20); Carbon Dioxide 35 mmol/L (22-30); Chloride 97 mmol/L (98-107); Estimated CRCL calculation 117 ml/min; Estimated Glomerular Filt Rate > 60; Glucose 88 mg/dL (75-110); Potassium 3.8 mmol/L (3.4-5.0); Sodium 133 mmol/L (137-145)
[2020-04-02] MEDS: VITAMIN B COMPLEX CAPSULE 1 CAP PO (09:05)
[2020-04-02] MEDS: ASCORBIC ACID 500 MG TABLET PO (09:05)
[2020-04-02] MEDS: FUROSEMIDE INJ 40 MG/4 ML VIAL 20 MG IV PUSH (09:05)
[2020-04-02] MEDS: SERTRALINE HCL 50 MG TABLET PO (09:05)
[2020-04-02] MEDS: POTASSIUM CHLORIDE 10 MEQ TABLET.ER PO (09:05)
[2020-04-02] MEDS: EZETIMIBE 10 MG TABLET PO (09:06)
[2020-04-02] MEDS: predniSONE 20 MG TABLET PO (09:06)
[2020-04-02] MEDS: TICAGRELOR 90 MG TABLET PO ×2 (09:06→17:32)
[2020-04-02] MEDS: FERROUS SULFATE 324 MG TABLET PO (09:06)
[2020-04-02] MEDS: ATORVASTATIN 40 MG TABLET 80 MG PO (09:06)
[2020-04-02] MEDS: TAMSULOSIN HCL 0.4 MG CAPSULE PO (09:06)
[2020-04-02] MEDS: METOPROLOL TARTRATE 25 MG TABLET PO (09:06)
--- NOTE | 2020-04-02 12:01 | PM.IMPN ---
Progress Note: A&P Assessment and Plan (1) Acute exacerbation of congestive heart failure: Code(s): I50.9 - Heart failure, unspecified Status: Acute Assessment and Plan: 04/02/20 12:01 patient is a 79-year-old male with history of multivessel coronary artery disease with ICD suggesting most likely patient has significant systolic dysfunction, also pacemaker and history and Atrial fibrillation for which patient is taking warfarin, patient presented emergency department with a complaint shortness of breath lower extremity edema patient states even slight movement or talking causes him to become short of breath, significant orthopnea, has not been able to sleep very well last couple of nights, normally patient is seen at [facility] with his cuff slitter and primary care providers however he presented to the hospital because he was quite symptomatic, on 03/31 patient being diuresed with IV Lasix, his symptoms are slightly better, instructed patient to limit water intake and will keep his lower extremities elevated, he is seen by the Cardiology agrees with current management, on 04/01 patient was still complains of Shortness of breath, feels quite swollen, patient is currently treated with Lasix 20 mg IV b.i.d., gave 1 time dose of Lasix 40 mg IV and patient urinated 3200cc Today 04/02 appears edematous and c/o shortness of breath, will give time dose of Lasix 40mg IV, will hold 20mg schedule for later today, will reassess tomorrow and plan, will monitor kidney function and electrolytes, the patient have PT/OT evaluate the patient once clinically stable will discharge him back to his cuff slitter. 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89 - Dependence on other enabling machines and devices Status: Acute Assessment and Plan: will continue CPAP from (7) Adrenal insufficiency: Code(s): E27.40 - Unspecified adrenocortical insufficiency Status: Acute Assessment and Plan: patient is being treated with steroid (8) Coronary artery disease: Qualifiers: Coronary Disease-Associated Artery/Lesion type: [place] artery [place] vs. transplanted heart: [place] heart Associated angina: without angina Qualified Code(s): I25.10 - Atherosclerotic heart disease of [place] coronary artery without angina pectoris Code(s): I25.10 - Atherosclerotic heart disease of [place] coronary artery without angina pectoris Status: Acute Assessment and Plan: patient with a multivessel coronary artery disease on ICD suggested significant systolic dysfunction (9) Benign prostatic hyperplasia: Code(s): N40.0 - Benign prostatic hyperplasia without lower urinary tract symptoms Status: Acute Assessment and Plan: will continue home regimen (10) Elevated troponin: Code(s): R77.8 - Other specified abnormalities of plasma proteins Status: Acute Assessment and Plan: elevated tropes most likely demand ischemia unlikely acute coronary syndrome pa
[2020-04-02] MEDS: POTASSIUM CHLORIDE 20 MEQ TABLET 40 MEQ PO (12:13)
[2020-04-02] MEDS: FUROSEMIDE INJ 40 MG/4 ML VIAL IV PUSH (12:13)
[2020-04-02 13:49] LABS: SARS-CoV-2 RNA PCR Negative
--- NOTE | 2020-04-02 16:21 | PM.PNCARD ---
Progress Note: A&P Assessment and Plan (1) Anasarca: Code(s): R60.1 - Generalized edema Status: Acute Assessment and Plan: Long standing ischemic heart disease presenting with volume overload. Diuresed well yesterday. Given an additional dose of 40 mg furosemide IV again today by hospitalist. Not a dramatic change in his edema. Lower extremities may be a slightly softer but no smaller. Still has areas of weeping. Monitor renal function electrolytes (2) Acute exacerbation of congestive heart failure: Code(s): I50.9 - Heart failure, unspecified Status: Acute Assessment and Plan: Ischemic cardiomyopathies as above. ICD in place (3) Coronary artery disease: Qualifiers: Associated angina: without angina Coronary Disease-Associated Artery/Lesion type: [place] artery [place] vs. transplanted heart: [place] heart Qualified Code(s): I25.10 - Atherosclerotic heart disease of [place] coronary artery without angina pectoris Code(s): I25.10 - Atherosclerotic heart disease of [place] coronary artery without angina pectoris Status: Acute Assessment and Plan: No ischemic symptoms (4) Current use of long term acute care registered nurse anticoagulation: Code(s): Z79.01 - [facility] (current) use of anticoagulants Status: Acute Assessment and Plan: For history of DVT and pulmonary embolism. INR 1.8 this morning. Continue to monitor INR. Additional Plan Plan discussed with Dr Cabrera 1630 04/02/2020 Subjective Date/time seen: 04/02/20 16:21 Interval history: Follow-up for: shortness of breath / volume overload. Underlying ischemic heart disease. Date of service: 04/02/2020 Subjective: feeling better today. Denied chest discomfort, palpitations or lightheadedness. Shortness of breath improved as well. Has a new bed which is much more comfortable. Review of Systems Constitutional: Constitutional: Denies chills and Reports weakness Eyes: Eyes: Denies blurry vision ENT: Reports Normal hearing present, Denies throat swelling and Denies tongue swelling Cardiovascular: Cardiovascular: Denies chest pain, Denies rapid heart rate, Reports edema (Hands and forearms have improved) and Reports dyspnea Respiratory: Respiratory: Reports dyspnea and Denies wheezing Gastrointestinal: Gastrointestinal: Reports no additional gastrointestinal complaints, Denies abdominal pain and Reports bloating ( Improved) Genitourinary: Genitourinary: Denies hematuria Musculoskeletal: Musculoskeletal: Denies back pain and Reports arthralgias ( left knee postop) Integumentary/Breasts: Skin/Breast: Denies erythema and Denies rash Neurologic: Reports Normal hearing present and Reports weakness Psychiatric: Psychiatric: Denies anxiety and Denies depression Endocrine: Endocrine: Reports no additional endocrine complaints and Reports fatigue Hematologic/Lymphatic: Hematologic/Lymphatic: Denies easy bleeding and Denies easy bruising Allergic/Immunologic: Allergic/Immunologic: Denies throat swelling, Denies tongue swelling and Denies wheezing Exam Const: General: comfortable and no acute distress Other: Obese white male comfortable in bed. No distress. HENMT: Mouth: Yes moist mucous membranes Eyes: Sclera: sclerae normal Pupils: Equal, round and reactive pupils present Neck: Neck: supple Other: Difficult to assess JVD given his body habitus Resp: Effort & Inspection: normal respiratory effort and able to speak in complete sentences Auscultation: crackles on the right at the base Cardio: Rate: regular rate Rhythm: abnormal rhythm irregularly irregular GI: Inspection: obesity Auscultation: normal bowel sounds Urinary Catheter: Urinary Catheter: patent and draining and urine clear Skin: General skin exam: normal color Lesions: no le
[2020-04-02] MEDS: WARFARIN (*PBKC) 3 MG TABLET PO (17:32)
[2020-04-03] VITALS (9 sets, daily range): BP systolic 105–130; BP diastolic 49–68; PULSE 74–87; RESP 12–24; TEMP 36.1–36.4; O2SAT 94–100
[2020-04-03 05:53] LABS: Hematocrit 29.5 % (42.0-52.0); Hemoglobin 9.8 g/dL (14.0-18.0); Mean Corpuscular HGB Conc 33.2 g/dl (32-36); Mean Corpuscular Hemoglobin 30.2 pg (26-34); Mean Platelet Volume 9.5 fl (7.4-10.4); Platelet Count Result 173 k/mm3 (150-375); Red Blood Count 3.24 M/mm3 (4.6-6.20); Red Cell Distribution Width 14.6 % (11.5-14.5); White Blood Count 17.9 K/mm3 (4.5-10.0)
[2020-04-03 06:08] LABS: Anion Gap 1 mmol/L (8-16); Blood Urea Nitrogen 24 mg/dL (9-20); Calcium 7.7 mg/dL (8.4-10.2); Carbon Dioxide 34 mmol/L (22-30); Chloride 98 mmol/L (98-107); Estimated CRCL calculation 104 ml/min; Estimated Glomerular Filt Rate > 60; Glucose 91 mg/dL (75-110); Potassium 3.9 mmol/L (3.4-5.0); Prothrombin Time 22.5 Seconds (11.1-14.7); Sodium 133 mmol/L (137-145)
[2020-04-03] MEDS: FUROSEMIDE INJ 40 MG/4 ML VIAL IV PUSH (09:31)
[2020-04-03] MEDS: ATORVASTATIN 40 MG TABLET 80 MG PO (09:31)
[2020-04-03] MEDS: POTASSIUM CHLORIDE 10 MEQ TABLET.ER PO (09:31)
[2020-04-03] MEDS: TAMSULOSIN HCL 0.4 MG CAPSULE PO (09:32)
[2020-04-03] MEDS: VITAMIN B COMPLEX CAPSULE 1 CAP PO (09:32)
[2020-04-03] MEDS: SERTRALINE HCL 50 MG TABLET PO (09:32)
[2020-04-03] MEDS: METOPROLOL TARTRATE 25 MG TABLET PO (09:32)
[2020-04-03] MEDS: ASCORBIC ACID 500 MG TABLET PO (09:32)
[2020-04-03] MEDS: predniSONE 20 MG TABLET PO (09:32)
[2020-04-03] MEDS: TICAGRELOR 90 MG TABLET PO ×2 (09:32→16:27)
[2020-04-03] MEDS: EZETIMIBE 10 MG TABLET PO (09:32)
[2020-04-03] MEDS: FERROUS SULFATE 324 MG TABLET PO (09:32)
--- NOTE | 2020-04-03 13:27 | PM.IMPN ---
Progress Note: A&P Assessment and Plan (1) Acute exacerbation of congestive heart failure: Code(s): I50.9 - Heart failure, unspecified Status: Acute Assessment and Plan: 04/03/20 13:27 patient is a 79-year-old male with history of multivessel coronary artery disease with ICD suggesting most likely patient has significant systolic dysfunction, also pacemaker and history and Atrial fibrillation for which patient is taking warfarin, patient presented emergency department with a complaint shortness of breath lower extremity edema patient states even slight movement or talking causes him to become short of breath, significant orthopnea, has not been able to sleep very well last couple of nights, normally patient is seen at [facility] with 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 and primary care providers however he presented to the hospital because he was quite symptomatic, on 03/31 patient being diuresed with IV Lasix, his symptoms are slightly better, instructed patient to limit water intake and will keep his lower extremities elevated, he is seen by the Cardiology agrees with current management, on 04/01 patient was still complains of Shortness of breath, feels quite swollen, patient is currently treated with Lasix 20 mg IV b.i.d., gave 1 time dose of Lasix 40 mg IV and patient urinated 3200cc on 04/02 appears edematous and c/o shortness of breath, again gave one time dose of Lasix 40mg IV, held 20mg scheduled for later in the, Today 04/03 patient stats he been urinating more, feeling less edmatous in his upper and lower extremities and feel better compare to when he arrived, his is present in the room and stated he looks better, I spoke with middle school humanities teacher will continue daily Lasix 40mg IV and stop lasix BID, will monitor kidney function and electrolytes, the patient have PT/OT evaluate the patient, patient is seen by wound nurse and his wounds in the back are getting better, once clinically stable will discharge him back to 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. patient was tested for COVID-19 is negative (2) Anasarca: Code(s): R60.1 - Generalized edema Status: Acute Assessment and Plan: most likely secondary to volume overload from congestive heart failure continue to monitor (3) Current use of prison anticoagulation: Code(s): Z79.01 - longterm (current) use of anticoagulants Status: Acute Assessment and Plan: patient is taking warfarin for atrial fibrillation will monitor INR (4) Chronic kidney disease: Code(s): N18.9 - Chronic kidney disease, unspecified Status: Acute Assessment and Plan: acute on chronic kidney disease patient is being diuresed will closely monitor patient kidney function (5) Chronic anemia: Code(s): D64.9 - Anemia, unspecified Status: Acute Assessment and Plan: patient clinically stable (6) Obstructive sleep apnea on CPAP: Code(s): G47.33 - Obstructive sleep apnea (adult) (pediatric); Z99.89 - Dependence on other enabling machines and devices Status: Acute Assessment and Plan: will continue CPAP from (7) Adrenal insufficiency: Code(s): E27.40 - Unspecified adrenocortical insufficiency Status: Acute Assessment and Plan: patient is being treated with steroid (8) Coronary artery disease: Qualifiers: Coronary Disease-Associated Artery/Lesion type: [place] artery [place] vs. transplanted heart: [place] heart Associated angina: without angina Qualified Code(s): I25.10 - Atherosclerotic heart disease of [place] coronary artery without angina pectoris Code(s): I25.10 - Atherosclerotic heart disease of [place] coronary artery without angina pectoris Status: Acute Assessment and Plan: patient with a multivessel coronary artery disease on ICD suggested significant systolic dysfunction (9) Benign prostatic hyperplasia: Code(s): N40.0 - Benign prostatic hyperplasia without
--- NOTE | 2020-04-03 15:20 | PM.PNCARD ---
Progress Note: A&P Assessment and Plan (1) Anasarca: Code(s): R60.1 - Generalized edema Status: Acute Assessment and Plan: Long standing ischemic heart disease presenting with volume overload. Negative balance of approximately 5 L since admission. Furosemide changed to [address] Gonzalez. Willl give an additional 20 mg IVP this afternoon. If blood pressure and renal function will allow will try to up titrate his diuretics. Not a dramatic change in his edema. Lower extremities may be a slightly softer but no smaller. Still has areas of weeping. Monitor renal function electrolytes (2) Acute exacerbation of congestive heart failure: Code(s): I50.9 - Heart failure, unspecified Status: Acute Assessment and Plan: Ischemic cardiomyopathies as above. ICD in place (3) Coronary artery disease: Qualifiers: Coronary Disease-Associated Artery/Lesion type: [place] artery [place] vs. transplanted heart: [place] heart Associated angina: without angina Qualified Code(s): I25.10 - Atherosclerotic heart disease of [place] coronary artery without angina pectoris Code(s): I25.10 - Atherosclerotic heart disease of [place] coronary artery without angina pectoris Status: Acute Assessment and Plan: No ischemic symptoms (4) Current use of filler leaf cutter long anticoagulation: Code(s): Z79.01 - computer terminal operator (current) use of anticoagulants Status: Acute Assessment and Plan: For history of DVT and pulmonary embolism. INR 2.0 04/03/2020. Continue current dose of warfarin. Continue to monitor INR. Additional Plan Plan discussed with Dr Cabrera 1530 04/03/2020 Subjective Date/time seen: 04/03/20 15:20 Interval history: Follow-up for: shortness of breath / volume overload. Underlying ischemic heart disease. Date of service: 04/03/2020 Subjective: Has been up in the chair today. Using assist equipment to get out of bed. Please that he got to stand on his own 2 ft today. No chest discomfort, palpitations or lightheadedness. Shortness of breath with exertional activity continues to improve. Review of Systems Constitutional: Constitutional: Denies chills, Reports fatigue and Reports weakness Eyes: Eyes: Denies blurry vision ENT: Reports Normal hearing present, Denies throat swelling and Denies tongue swelling Cardiovascular: Cardiovascular: Denies chest pain, Denies rapid heart rate, Reports edema (Hands and forearms have improved) and Reports dyspnea ( Improved) Respiratory: Respiratory: Reports dyspnea ( improved) and Denies wheezing Gastrointestinal: Gastrointestinal: Denies abdominal pain and Denies bloating Genitourinary: Genitourinary: Denies hematuria Musculoskeletal: Musculoskeletal: Denies back pain and Reports arthralgias ( left knee postop) Integumentary/Breasts: Skin/Breast: Denies erythema and Denies rash Neurologic: Reports Normal hearing present and Reports weakness Psychiatric: Psychiatric: Denies anxiety and Denies depression Endocrine: Endocrine: Reports no additional endocrine complaints and Reports fatigue Hematologic/Lymphatic: Hematologic/Lymphatic: Denies easy bleeding and Denies easy bruising Allergic/Immunologic: Allergic/Immunologic: Denies throat swelling, Denies tongue swelling and Denies wheezing Exam Const: General: comfortable and no acute distress Other: Obese white male comfortable in bed. No distress. HENMT: Mouth: Yes moist mucous membranes Eyes: Sclera: sclerae normal Pupils: Equal, round and reactive pupils present Neck: Neck: supple Other: Difficult to assess JVD given his body habitus Resp: Effort & Inspection: normal respiratory effort and able to speak in complete sentences Auscultation: crackles on the right at the base Cardio: Rate: regular rate Rhyth
[2020-04-03] MEDS: WARFARIN (*PBKC) 3 MG TABLET PO (16:27)
[2020-04-03] MEDS: FUROSEMIDE INJ 40 MG/4 ML VIAL 20 MG IV PUSH (16:28)
[2020-04-04] VITALS (8 sets, daily range): BP systolic 113–130; BP diastolic 51–83; PULSE 66–100; RESP 13–20; TEMP 35.8–36.8; O2SAT 91–99
[2020-04-04 06:32] LABS: Anion Gap 0 mmol/L (8-16); Blood Urea Nitrogen 25 mg/dL (9-20); Calcium 8.1 mg/dL (8.4-10.2); Carbon Dioxide 34 mmol/L (22-30); Chloride 99 mmol/L (98-107); Estimated CRCL calculation 110 ml/min; Estimated Glomerular Filt Rate > 60; Glucose 90 mg/dL (75-110); Potassium 3.9 mmol/L (3.4-5.0); Sodium 133 mmol/L (137-145)
[2020-04-04] MEDS: VITAMIN B COMPLEX CAPSULE 1 CAP PO (08:55)
[2020-04-04] MEDS: EZETIMIBE 10 MG TABLET PO (08:55)
[2020-04-04] MEDS: ATORVASTATIN 40 MG TABLET 80 MG PO (08:55)
[2020-04-04] MEDS: predniSONE 20 MG TABLET PO (08:55)
[2020-04-04] MEDS: FERROUS SULFATE 324 MG TABLET PO (08:55)
[2020-04-04] MEDS: SERTRALINE HCL 50 MG TABLET PO (08:55)
[2020-04-04] MEDS: ASCORBIC ACID 500 MG TABLET PO (08:56)
[2020-04-04] MEDS: POTASSIUM CHLORIDE 10 MEQ TABLET.ER PO (08:56)
[2020-04-04] MEDS: FUROSEMIDE INJ 40 MG/4 ML VIAL IV PUSH ×2 (08:56→16:42)
[2020-04-04] MEDS: METOPROLOL TARTRATE 25 MG TABLET PO (08:56)
[2020-04-04] MEDS: TICAGRELOR 90 MG TABLET PO ×2 (08:57→16:40)
[2020-04-04] MEDS: TAMSULOSIN HCL 0.4 MG CAPSULE PO (08:57)
[2020-04-04 09:15] LABS: Hematocrit 30.8 % (42.0-52.0); Hemoglobin 10.2 g/dL (14.0-18.0); Mean Corpuscular HGB Conc 33.1 g/dl (32-36); Mean Corpuscular Hemoglobin 30.2 pg (26-34); Mean Corpuscular Volume 91.1 fl (80-100); Mean Platelet Volume 9.6 fl (7.4-10.4); Platelet Count Result 170 k/mm3 (150-375); Red Blood Count 3.38 M/mm3 (4.6-6.20); Red Cell Distribution Width 14.7 % (11.5-14.5); White Blood Count 17.6 K/mm3 (4.5-10.0)
[2020-04-04 09:24] LABS: INR 1.9; Prothrombin Time 20.9 Seconds (11.1-14.7)
--- NOTE | 2020-04-04 12:41 | PM.IMPN ---
Progress Note: A&P Assessment and Plan (1) Acute exacerbation of congestive heart failure: Code(s): I50.9 - Heart failure, unspecified Status: Acute Assessment and Plan: 04/04/2020 patient is a 79-year-old male with history of multivessel coronary artery disease with ICD suggesting most likely patient has significant systolic dysfunction, also pacemaker and history and Atrial fibrillation for which patient is taking warfarin, patient presented emergency department with a complaint shortness of breath lower extremity edema patient states even slight movement or talking causes him to become short of breath, significant orthopnea, has not been able to sleep very well last couple of nights, normally patient is seen at [facility] with his dough braker and primary care providers however he presented to the hospital because he was quite symptomatic, on 03/31 patient being diuresed with IV Lasix, his symptoms are slightly better, instructed patient to limit water intake and will keep his lower extremities elevated, he is seen by the Cardiology agrees with current management, on 04/01 patient was still complains of Shortness of breath, feels quite swollen, patient is currently treated with Lasix 20 mg IV b.i.d., gave 1 time dose of Lasix 40 mg IV and patient urinated 3200cc on 04/02 appears edematous and c/o shortness of breath, again gave one time dose of Lasix 40mg IV, held 20mg scheduled for later in the, 04/03 patient stated he been urinating more, feeling less edmatous in his upper and lower extremities and feel better compare to when he arrived, his was present in the room and stated he looks better, I spoke with dough braker will continue daily Lasix 40mg IV and stop lasix BID. 04/04 patient clinical symptoms are improving, he still appears edematous will increase IV Lasix 40 mg b.i.d. from q.day yesterday will continue to monitor patient, kidney function and electrolytes, patient will be seen by cardiology service and further recommendation to follow. will have a PT OT evaluate the patient. 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 (4) Chronic kidney disease: Code(s): N18.9 - Chronic kidney disease, unspecified Status: Acute Assessment and Plan: acute on chronic kidney disease patient is being diuresed will closely monitor patient kidney function (5) Chronic anemia: Code(s): D64.9 - Anemia, unspecified Status: Acute Assessment and Plan: patient clinically stable (6) Obstructive sleep apnea on CPAP: Code(s): G47.33 - Obstructive sleep apnea (adult) (pediatric); Z99.89 - Dependence on other enabling machines and devices Status: Acute Assessment and Plan: will continue CPAP from (7) Adrenal insufficiency: Code(s): E27.40 - Unspecified adrenocortical insufficiency Status: Acute Assessment and Plan: patient is being treated with steroid, patient is scheduled to see Endocrinology once discharged. (8) Coronary artery disease: Qualifiers: Associated angina: without angina Coronary Disease-Associated Artery/Lesion type: [place] artery [place] vs. transplanted heart: [place] heart Qualified Code(s): I25.10 - Atherosclerotic heart disease of [place] coronary artery without angina pectoris Code(s): I25.10 - Atherosclerotic heart disease of [place] coronary artery without angina pectoris Status: Acute Assessment and Plan: patient with a multivessel coronary artery disease on ICD suggested significant
--- NOTE | 2020-04-04 14:08 | PM.PNCARD ---
Progress Note: A&P Assessment and Plan (1) Anasarca: Code(s): R60.1 - Generalized edema Status: Acute Assessment and Plan: Long standing ischemic heart disease presenting with volume overload. Negative balance of approximately 6 L since admission. Agree with increasing furosemide to 40 mg IV pus b.i.d.. Will need to follow-up blood pressure and renal function closely. Still no dramatic change in his edema but he has at least 10 if not 15 kilos of fluid on board. This will not be able to be removed quickly. (2) Acute exacerbation of congestive heart failure: Code(s): I50.9 - Heart failure, unspecified Status: Acute Assessment and Plan: Ischemic cardiomyopathies as above. ICD in place Was previously on Entresto. May have been discontinued when he was hypotensive. Change Metoprolol tartrate to Metoprolol succinate. Will start Metoprolol succinate 25 mg in the morning. (3) Coronary artery disease: Qualifiers: Associated angina: without angina Coronary Disease-Associated Artery/Lesion type: [place] artery [place] vs. transplanted heart: [place] heart Qualified Code(s): I25.10 - Atherosclerotic heart disease of [place] coronary artery without angina pectoris Code(s): I25.10 - Atherosclerotic heart disease of [place] coronary artery without angina pectoris Status: Acute Assessment and Plan: No ischemic symptoms (4) Current use of snf anticoagulation: Code(s): Z79.01 - [facility] (current) use of anticoagulants Status: Acute Assessment and Plan: For history of DVT and pulmonary embolism. INR 1.9 04/04/2020. Continue current dose of warfarin. Continue to monitor INR. If falls again may need to adjust his dose. Additional Plan Plan discussed with Dr Cabrera 1425 04/04/2020 Subjective Date/time seen: 04/04/20 14:08 Interval history: Follow-up for: shortness of breath / volume overload. Underlying ischemic heart disease. Date of service: 04/04/2020 Subjective: Has not yet been out of bed today. Denied chest discomfort, shortness of breath, lightheadedness or palpitations. Hands and forearms are still improving. Still has weeping in the lower extremities as well as the upper extremity. Review of Systems Constitutional: Constitutional: Denies chills, Reports fatigue and Reports weakness Eyes: Eyes: Denies blurry vision ENT: Reports Normal hearing present, Denies throat swelling and Denies tongue swelling Cardiovascular: Cardiovascular: Denies chest pain, Denies rapid heart rate, Reports edema (Hands and forearms have improved) and Reports dyspnea ( improved) Respiratory: Respiratory: Reports dyspnea ( improved) and Denies wheezing Gastrointestinal: Gastrointestinal: Denies abdominal pain and Denies bloating Genitourinary: Genitourinary: Denies hematuria Musculoskeletal: Musculoskeletal: Denies back pain and Reports arthralgias ( left knee postop) Integumentary/Breasts: Skin/Breast: Denies erythema and Denies rash Neurologic: Reports Normal hearing present and Reports weakness Psychiatric: Psychiatric: Denies anxiety and Denies depression Endocrine: Endocrine: Reports no additional endocrine complaints and Reports fatigue Hematologic/Lymphatic: Hematologic/Lymphatic: Denies easy bleeding and Denies easy bruising Allergic/Immunologic: Allergic/Immunologic: Denies throat swelling, Denies tongue swelling and Denies wheezing Exam Const: General: comfortable and no acute distress Other: Obese white male comfortable in bed. No distress. HENMT: Mouth: Yes moist mucous membranes Eyes: Sclera: sclerae normal Pupils: Equal, round and reactive pupils present Neck: Neck: supple Other: Difficult to assess JVD given his body habitus Resp: Effort & Inspection: normal respiratory
--- NOTE | 2020-04-04 14:50 | PCOTNOTE ---
Attempted to see patient this pm, however patient with physical therapy at this time.
[2020-04-04] MEDS: WARFARIN (*PBKC) 3 MG TABLET PO (16:40)
[2020-04-05] VITALS (7 sets, daily range): BP systolic 101–112; BP diastolic 52–61; PULSE 69–99; RESP 16–22; TEMP 36.1–37.1; O2SAT 92–100
[2020-04-05 06:21] LABS: Hematocrit 31.8 % (42.0-52.0); Hemoglobin 10.3 g/dL (14.0-18.0); Mean Corpuscular HGB Conc 32.4 g/dl (32-36); Mean Corpuscular Hemoglobin 29.8 pg (26-34); Mean Corpuscular Volume 91.9 fl (80-100); Mean Platelet Volume 9.4 fl (7.4-10.4); Platelet Count Result 177 k/mm3 (150-375); Red Blood Count 3.46 M/mm3 (4.6-6.20); Red Cell Distribution Width 14.7 % (11.5-14.5); White Blood Count 17.5 K/mm3 (4.5-10.0)
[2020-04-05 06:23] LABS: INR 2.1; Prothrombin Time 23.1 Seconds (11.1-14.7)
[2020-04-05 06:36] LABS: Anion Gap -1 mmol/L (8-16); Blood Urea Nitrogen 25 mg/dL (9-20); Carbon Dioxide 38 mmol/L (22-30); Chloride 97 mmol/L (98-107); Estimated CRCL calculation 93 ml/min; Estimated Glomerular Filt Rate > 60; Glucose 83 mg/dL (75-110); Potassium 3.9 mmol/L (3.4-5.0); Sodium 134 mmol/L (137-145)
[2020-04-05] MEDS: ATORVASTATIN 40 MG TABLET 80 MG PO (08:44)
[2020-04-05] MEDS: VITAMIN B COMPLEX CAPSULE 1 CAP PO (08:44)
[2020-04-05] MEDS: TICAGRELOR 90 MG TABLET PO ×2 (08:45→17:25)
[2020-04-05] MEDS: FERROUS SULFATE 324 MG TABLET PO (08:45)
[2020-04-05] MEDS: POTASSIUM CHLORIDE 10 MEQ TABLET.ER PO (08:45)
[2020-04-05] MEDS: EZETIMIBE 10 MG TABLET PO (08:45)
[2020-04-05] MEDS: METOPROLOL TARTRATE 25 MG TABLET PO (08:45)
[2020-04-05] MEDS: TAMSULOSIN HCL 0.4 MG CAPSULE PO (08:46)
[2020-04-05] MEDS: predniSONE 20 MG TABLET PO (08:46)
[2020-04-05] MEDS: FUROSEMIDE INJ 40 MG/4 ML VIAL IV PUSH ×2 (08:46→17:25)
[2020-04-05] MEDS: ASCORBIC ACID 500 MG TABLET PO (08:46)
[2020-04-05] MEDS: SERTRALINE HCL 50 MG TABLET PO (08:46)
--- NOTE | 2020-04-05 14:48 | PM.PNCARD ---
Progress Note: A&P Assessment and Plan (1) Anasarca: Code(s): R60.1 - Generalized edema Status: Acute Assessment and Plan: Long standing ischemic heart disease presenting with volume overload. Negative balance of almost 9 L since admission. Continue furosemide to 40 mg IV pus b.i.d.. Blood pressure and renal function are stable. Daily BMP (2) Acute exacerbation of congestive heart failure: Code(s): I50.9 - Heart failure, unspecified Status: Acute Assessment and Plan: Ischemic cardiomyopathies as above. ICD in place Was previously on Entresto. May have been discontinued when he was hypotensive. Change Metoprolol tartrate to Metoprolol succinate. Will start Metoprolol succinate 25 mg in the morning. Ideally he should be restarted on medications for systolic dysfunction. (3) Coronary artery disease: Qualifiers: Associated angina: without angina Coronary Disease-Associated Artery/Lesion type: [place] artery [place] vs. 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 INR 2.1 04/05/2020 Continue current dose of warfarin. Continue to monitor INR. If INR falls again may need to adjust his dose. Additional Plan Plan discussed with Dr Howard 1450 04/05/2020 Subjective Date/time seen: 04/05/20 14:48 Interval history: Follow-up for: shortness of breath / volume overload. Underlying ischemic heart disease. Date of service: 04/05/2020 Subjective: Up in chair with the assistance of the [employer]. Had a shower today as well. Denied chest discomfort, shortness of breath, lightheadedness or palpitations. Thinks that his hand and forearm swelling is better. Review of Systems Constitutional: Constitutional: Denies chills and Reports weakness Eyes: Eyes: Denies blurry vision ENT: Reports Normal hearing present, Denies throat swelling and Denies tongue swelling Cardiovascular: Cardiovascular: Denies chest pain, Denies rapid heart rate, Reports edema (Hands and forearms have improved) and Reports dyspnea ( improved) Respiratory: Respiratory: Reports dyspnea ( improved) and Denies wheezing Gastrointestinal: Gastrointestinal: Denies abdominal pain, Denies bloating, Denies constipation and Denies heartburn Genitourinary: Genitourinary: Denies hematuria Musculoskeletal: Musculoskeletal: Denies back pain and Reports arthralgias ( left knee postop) Integumentary/Breasts: Skin/Breast: Denies erythema and Denies rash Neurologic: Reports Normal hearing present and Reports weakness Psychiatric: Psychiatric: Denies anxiety and Denies depression Endocrine: Endocrine: Reports fatigue Hematologic/Lymphatic: Hematologic/Lymphatic: Denies easy bleeding and Denies easy bruising Allergic/Immunologic: Allergic/Immunologic: Denies throat swelling, Denies tongue swelling and Denies wheezing Exam Const: General: comfortable and no acute distress Other: Obese white male comfortable in chair . Legs are elevated. HENMT: Mouth: Yes moist mucous membranes Eyes: Sclera: sclerae normal Pupils: Equal, round and reactive pupils present Neck: Neck: supple Resp: Effort & Inspection: normal respiratory effort and able to speak in complete sentences Auscultation: crackles on the right at the base Cardio: Rate: regular rate Rhythm: abnormal rhythm irregularly irregular GI: Inspection:
--- NOTE | 2020-04-05 14:57 | PM.IMPN ---
Progress Note: A&P Assessment and Plan (1) Acute exacerbation of congestive heart failure: Code(s): I50.9 - Heart failure, unspecified Status: Acute Assessment and Plan: acute exacerbation. Responded IV Lasix. Continue beta-viktoria and as per cardiology changed to metoprolol XL has been off THADDEUS-inhibitor due to recent about a renal failure necessitating round of dialysis. If continues to improve and renal status remains stable could probably reinstate Thaddeus PT OT working with patient (2) Coronary artery disease: Qualifiers: Coronary Disease-Associated Artery/Lesion type: [place] artery [place] vs. transplanted heart: [place] heart Associated angina: without angina Qualified Code(s): I25.10 - Atherosclerotic heart disease of [place] coronary artery without angina pectoris Code(s): I25.10 - Atherosclerotic heart disease of [place] coronary artery without angina pectoris Status: Acute Assessment and Plan: history. Troponin mild elevation secondary to heart failure with no ischemic event. Continue anti-platelet, statin, and beta-viktoria (3) Adrenal insufficiency: Code(s): E27.40 - Unspecified adrenocortical insufficiency Status: Acute Assessment and Plan: recently diagnosed. Continue prednisone and decrease to 10 daily. 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 79-year-old white male with ischemic cardiomyopathy convalescing at local [facility] after complicated postop course of left total knee arthroplasty. admitted here with acute on chronic systolic heart failure with anasarca. He has continue to diurese and starting to feel better. Still very weak but no shortness of breath at rest Exam Narrative: Exam Narrative: blood pressure 112/52 pulse is 84 saturating 97% on room air afebrile lungs are clear CV regular rate rhythm systolic murmur abdomen soft nontender extremities pitting edema of the arms and the legs but developing wrinkling of his arms with decreasing fluid. Neuro alert pleasant cooperative no focal deficits Objective Data Vital Signs Vital Signs: Vital Signs - 24 hr 04/04/20 18:00 04/04/20 20:00 04/04/20 22:15 Temperature 36.1 C L 36.8 C Pulse Rate 70 81 79 Respiratory Rate 18 20 13 Blood Pressure 113/59 L 119/59 L Pulse Oximetry 98 97 98 04/05/20 00:00 04/05/20 02:13 04/05/20 04:00 Temperature 36.6 C 36.1 C L Pulse Rate 78 81 82 Respiratory Rate 20 16 20 Blood Pressure 112/56 L 110/61 Pulse Oximetry 100 97 98 04/05/20 08:45 04/05/20 14:00 Temperature 36.3 C L Pulse Rate 69 84 Respiratory Rate 18 Blood Pressure 112/58 L Pulse Oximetry 97 Intake/Output Intake/Output: Intake & Output 04/02/20 04/03/20 04/04/20 04/05/20 23:59 23:59 23:59 23:59 Intake Total 920 1150 820 770 Output Total 2350 1800 2650 1650 Balance -1430 -650 -1830 -880 Meds/Results Medications: Active Medications Generic Name Dose Route Start Last Admin Trade Name Freq PRN Reason Stop Dose Admin Asco
--- NOTE | 2020-04-05 15:43 | PCDIET ---
Weekly nutritional screen. Patient is tolerating current diet, heart healthy with fluid restriction which is appropriate, with adequate intake, 100% of all meals. No weight loss reported. No nutritional needs at this time.
[2020-04-05] MEDS: WARFARIN (*PBKC) 3 MG TABLET PO (17:25)
[2020-04-06 01:21] VITALS: PULSE 71; RESP 11; O2SAT 97
[2020-04-06 06:00] VITALS: BP 118/70; PULSE 75; RESP 20; TEMP 36.5; O2SAT 99
[2020-04-06 06:02] LABS: Hemoglobin 10.3 g/dL (14.0-18.0); Mean Corpuscular HGB Conc 32.2 g/dl (32-36); Mean Corpuscular Hemoglobin 29.7 pg (26-34); Mean Corpuscular Volume 92.2 fl (80-100); Mean Platelet Volume 9.6 fl (7.4-10.4); Platelet Count Result 195 k/mm3 (150-375); Red Blood Count 3.47 M/mm3 (4.6-6.20); Red Cell Distribution Width 14.7 % (11.5-14.5); White Blood Count 18.2 K/mm3 (4.5-10.0)
[2020-04-06 06:15] LABS: INR 2.4; Prothrombin Time 25.5 Seconds (11.1-14.7)
[2020-04-06 06:19] LABS: Anion Gap 4 mmol/L (8-16); Blood Urea Nitrogen 27 mg/dL (9-20); Calcium 7.9 mg/dL (8.4-10.2); Carbon Dioxide 32 mmol/L (22-30); Chloride 98 mmol/L (98-107); Estimated CRCL calculation 93 ml/min; Estimated Glomerular Filt Rate > 60; Glucose 82 mg/dL (75-110); Sodium 134 mmol/L (137-145)
[2020-04-06 09:34] VITALS: PULSE 75
[2020-04-06] MEDS: SERTRALINE HCL 50 MG TABLET PO (09:34)
[2020-04-06] MEDS: predniSONE 10 MG TABLET PO (09:34)
[2020-04-06] MEDS: TAMSULOSIN HCL 0.4 MG CAPSULE PO (09:34)
[2020-04-06] MEDS: FERROUS SULFATE 324 MG TABLET PO (09:34)
[2020-04-06] MEDS: FUROSEMIDE INJ 40 MG/4 ML VIAL IV PUSH ×2 (09:34→17:57)
[2020-04-06] MEDS: VITAMIN B COMPLEX CAPSULE 1 CAP PO (09:34)
[2020-04-06] MEDS: METOPROLOL SUCCINATE EXT REL 25 MG TABCR PO (09:34)
[2020-04-06] MEDS: EZETIMIBE 10 MG TABLET PO (09:34)
[2020-04-06] MEDS: metOLazone 2.5 MG TABLET PO (09:34)
[2020-04-06] MEDS: ATORVASTATIN 40 MG TABLET 80 MG PO (09:34)
[2020-04-06] MEDS: TICAGRELOR 90 MG TABLET PO ×2 (09:34→17:56)
[2020-04-06] MEDS: ASCORBIC ACID 500 MG TABLET PO (09:34)
[2020-04-06 14:00] VITALS: BP 96/52; PULSE 80; RESP 20; TEMP 36.3; O2SAT 99
--- NOTE | 2020-04-06 14:36 | PM.IMPN ---
Progress Note: A&P Assessment and Plan (1) Acute exacerbation of congestive heart failure: Code(s): I50.9 - Heart failure, unspecified Status: Acute Assessment and Plan: acute exacerbation. Responded IV Lasix. Continue beta-viktoria and as per cardiology changed to metoprolol XL has been off THADDEUS-inhibitor due to recent bout of renal failure necessitating round of dialysis. If continues to improve and renal status remains stable could probably reinstate Thaddeus PT OT working with patient (2) Coronary artery disease: Qualifiers: Coronary Disease-Associated Artery/Lesion type: [place] artery [place] vs. transplanted heart: [place] heart Associated angina: without angina Qualified Code(s): I25.10 - Atherosclerotic heart disease of [place] coronary artery without angina pectoris Code(s): I25.10 - Atherosclerotic heart disease of [place] coronary artery without angina pectoris Status: Acute Assessment and Plan: history. Troponin mild elevation secondary to heart failure with no ischemic event. Continue anti-platelet, statin, and beta-viktoria (3) Adrenal insufficiency: Code(s): E27.40 - Unspecified adrenocortical insufficiency Status: Acute Assessment and Plan: recently diagnosed. Continue prednisone and decrease to 10 qd today. The addition of fludrocortisone may have aggravated his heart failure (4) Chronic anemia: Code(s): D64.9 - Anemia, unspecified Status: Acute Assessment and Plan: unchanged continue to monitor (5) Chronic kidney disease: Code(s): N18.9 - Chronic kidney disease, unspecified Status: Acute Assessment and Plan: creatinine is remained normal with the increase in diuresis and will continue to follow. .08 today with bun 27 (6) Current use of termination clerk anticoagulation: Code(s): Z79.01 - watermelon inspector (current) use of anticoagulants Status: Acute Assessment and Plan: history of DVT and PE continue warfarin with INR 2.4 today (7) Obstructive sleep apnea on CPAP: Code(s): G47.33 - Obstructive sleep apnea (adult) (pediatric); Z99.89 - Dependence on other enabling machines and devices Status: Acute Assessment and Plan: continue CPAP Subjective Date/time seen: 04/06/20 14:36 Interval history: Date of visit 04/06. 79-year-old white male with ischemic cardiomyopathy convalescing at local senior living after complicated postop course of left total knee arthroplasty. admitted here with acute on chronic systolic heart failure with anasarca. He has continue to diurese and starting to feel better. Still very weak but no shortness of breath at rest or transferrin with pt. slept well Exam Narrative: Exam Narrative: blood pressure 118/70 pulse is 74 saturating 99% on room air afebrile lungs are clear with very faint left post crackle CV regular rate rhythm systolic murmur abdomen soft nontender extremities pitting edema of the arms and the legs but developing wrinkling of his arms with decreasing fluid. Neuro alert pleasant cooperative no focal deficits Objective Data Vital Signs Vital Signs: Vital Signs - 24 hr 04/05/20 21:49 04/05/20 22:00 04/06/20 01:21 Temperature 37.1 C Pulse Rate 72 99 71 Respiratory Rate 22 H 20 11 L Blood Pressure 101/52 L Pulse Oximetry 98 92 97 04/06/20 06:00 04/06/20 09:34 04/06/20 14:00 Temperature 36.5 C 36.3 C L Pulse Rate 75 75 80 Respiratory Rate 20 20 Blood Pressure 118/70 96/52 L Pulse Oximetry 99 99 Intake/Output Intake/Output: Intake & Output 04/03/20 04/04/20 04/05/20 04/06/20 23:59 23:59 23:59 23:59 Intake Total 5214 031 9693 480 Output Total 1800 2650 2300 1700 Balance -650 -1830 -1080 -1220 Meds/Results Medications: Active Medications Generic Name Dose Route Start Last Admin Trade Name Freq PRN Reason Stop Dose Admin Ascorbic Acid 500 mg 03/30/20 09:00 04/06/20 09:34 Vitamin C P
[2020-04-06] MEDS: WARFARIN (*PBKC) 3 MG TABLET PO (17:57)
[2020-04-06 22:00] VITALS: BP 99/47; PULSE 88; RESP 18; TEMP 36.2; O2SAT 98
[2020-04-06 23:18] VITALS: PULSE 77; RESP 18; O2SAT 97
[2020-04-07] VITALS (8 sets, daily range): BP systolic 88–102; BP diastolic 50–58; PULSE 69–85; RESP 11–20; TEMP 36–36.7; O2SAT 92–99
[2020-04-07 05:56] LABS: Hematocrit 28.9 % (42.0-52.0); Hemoglobin 9.5 g/dL (14.0-18.0); Mean Corpuscular HGB Conc 32.9 g/dl (32-36); Mean Corpuscular Hemoglobin 29.7 pg (26-34); Mean Corpuscular Volume 90.3 fl (80-100); Platelet Count Result 169 k/mm3 (150-375); Red Cell Distribution Width 14.8 % (11.5-14.5); White Blood Count 16.6 K/mm3 (4.5-10.0)
[2020-04-07 06:10] LABS: INR 2.8; Prothrombin Time 29.1 Seconds (11.1-14.7)
[2020-04-07 06:16] LABS: Anion Gap 0 mmol/L (8-16); Blood Urea Nitrogen 24 mg/dL (9-20); Calcium 7.8 mg/dL (8.4-10.2); Carbon Dioxide 37 mmol/L (22-30); Chloride 95 mmol/L (98-107); Estimated CRCL calculation 92 ml/min; Estimated Glomerular Filt Rate > 60; Glucose 86 mg/dL (75-110); Potassium 3.5 mmol/L (3.4-5.0); Sodium 132 mmol/L (137-145)
[2020-04-07] MEDS: TAMSULOSIN HCL 0.4 MG CAPSULE PO (09:45)
[2020-04-07] MEDS: FUROSEMIDE INJ 40 MG/4 ML VIAL IV PUSH ×2 (09:45→17:14)
[2020-04-07] MEDS: TICAGRELOR 90 MG TABLET PO ×2 (09:45→17:14)
[2020-04-07] MEDS: EZETIMIBE 10 MG TABLET PO (09:45)
[2020-04-07] MEDS: POTASSIUM CHLORIDE 20 MEQ TABLET 40 MEQ PO (09:45)
[2020-04-07] MEDS: FERROUS SULFATE 324 MG TABLET PO (09:46)
[2020-04-07] MEDS: ASCORBIC ACID 500 MG TABLET PO (09:46)
[2020-04-07] MEDS: ATORVASTATIN 40 MG TABLET 80 MG PO (09:46)
[2020-04-07] MEDS: predniSONE 10 MG TABLET PO (09:46)
[2020-04-07] MEDS: VITAMIN B COMPLEX CAPSULE 1 CAP PO (09:46)
[2020-04-07] MEDS: metOLazone 2.5 MG TABLET PO (09:46)
[2020-04-07] MEDS: SERTRALINE HCL 50 MG TABLET PO (09:46)
[2020-04-07] MEDS: METOPROLOL SUCCINATE EXT REL 25 MG TABCR PO (09:46)
--- NOTE | 2020-04-07 11:40 | PM.PNCARD ---
Progress Note: A&P Assessment and Plan (1) Anasarca: Code(s): R60.1 - Generalized edema Status: Acute Assessment and Plan: Long-standing ischemic heart disease presenting with volume overload. Responding well to diuresis. Continue daily Metolazone 2.5mg and Furosemide to 40 mg IV b.i.d.. Blood pressure and renal function are stable. Continue to monitor renal function and electrolytes daily. (2) Acute exacerbation of congestive heart failure: Code(s): I50.9 - Heart failure, unspecified Status: Acute Assessment and Plan: Ischemic cardiomyopathy as above. ICD. Previously on Entresto, would prefer to resume as BP and renal function permit. Continue Metoprolol succinate. (3) Coronary artery disease: Qualifiers: Coronary Disease-Associated Artery/Lesion type: [place] artery [place] vs. 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 INR 2.8 Continue current dose of warfarin. Continue to monitor INR. Additional Plan Subjective Date/time seen: Date of service: 04/07/20 11:40 Interval history: Follow-up for: shortness of breath / volume overload. Underlying ischemic heart disease. Subjective: Feels much better today. Denies chest discomfort, shortness of breath, lightheadedness or palpitations. Responding very well overnight to IV Lasix and metolazone. No other complaints. Review of Systems Constitutional: Constitutional: Denies chills and Reports weakness Eyes: Eyes: Denies blurry vision ENT: Reports Normal hearing present, Denies throat swelling and Denies tongue swelling Cardiovascular: Cardiovascular: Denies chest pain, Denies rapid heart rate, Reports edema (Hands and forearms have improved) and Reports dyspnea ( improved) Respiratory: Respiratory: Reports dyspnea ( improved) and Denies wheezing Gastrointestinal: Gastrointestinal: Denies abdominal pain, Denies bloating, Denies constipation and Denies heartburn Genitourinary: Genitourinary: Denies hematuria Musculoskeletal: Musculoskeletal: Denies back pain and Reports arthralgias ( left knee postop) Integumentary/Breasts: Skin/Breast: Denies erythema and Denies rash Neurologic: Reports Normal hearing present and Reports weakness Psychiatric: Psychiatric: Denies anxiety and Denies depression Hematologic/Lymphatic: Hematologic/Lymphatic: Denies easy bleeding and Denies easy bruising Allergic/Immunologic: Allergic/Immunologic: Denies throat swelling, Denies tongue swelling and Denies wheezing Exam Const: General: comfortable and no acute distress Other: Obese white male comfortable in chair . Legs are elevated. HENMT: Mouth: Yes moist mucous membranes Eyes: Sclera: sclerae normal Pupils: Equal, round and reactive pupils present Neck: Neck: supple Thyroid: thyroid normal Other: no obvious JVD Resp: Effort & Inspection: normal respiratory effort and able to speak in complete sentences Auscultation: crackles on the right at the base Other: CTA bilaterally Cardio: Rate: regular rate Rhythm: abnormal rhythm irregularly irregular GI: Inspection: obesity Auscultation: normal bowel sounds Urinary Catheter: Urinary Catheter: patent and draining and urine clear Skin: General skin exam: normal color Lesions: no lesions Rashes: no rashes Neuro: Cranial nerves: Yes Equal, round and kadie
--- NOTE | 2020-04-07 13:53 | PM.IMPN ---
Progress Note: A&P Assessment and Plan (1) Acute exacerbation of congestive heart failure: Code(s): I50.9 - Heart failure, unspecified Status: Acute Assessment and Plan: acute exacerbation. Responding IV Lasix. Continue beta-viktoria and as per cardiology changed to metoprolol XL has been off THADDEUS-inhibitor due to recent bout of renal failure necessitating round of dialysis. If continues to improve and renal status remains stable could probably reinstate Thaddeus diuresing well yesterday with addition of metolazone so will continue as renal status allows PT OT working with patient (2) Coronary artery disease: Qualifiers: Coronary Disease-Associated Artery/Lesion type: [place] artery [place] vs. transplanted heart: [place] heart Associated angina: without angina Qualified Code(s): I25.10 - Atherosclerotic heart disease of [place] coronary artery without angina pectoris Code(s): I25.10 - Atherosclerotic heart disease of [place] coronary artery without angina pectoris Status: Acute Assessment and Plan: history. Troponin mild elevation secondary to heart failure with no ischemic event. Continue anti-platelet, statin, and beta-viktoria (3) Adrenal insufficiency: Code(s): E27.40 - Unspecified adrenocortical insufficiency Status: Acute Assessment and Plan: recently diagnosed. Continue prednisone and decreased to 10 qd today. The addition of fludrocortisone may have aggravated his heart failure (4) Chronic anemia: Code(s): D64.9 - Anemia, unspecified Status: Acute Assessment and Plan: unchanged continue to monitor (5) Chronic kidney disease: Code(s): N18.9 - Chronic kidney disease, unspecified Status: Acute Assessment and Plan: creatinine is remained normal with the increase in diuresis and will continue to follow. 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 79-year-old white male with ischemic cardiomyopathy convalescing at local alf after complicated postop course of left total knee arthroplasty. admitted here with acute on chronic systolic heart failure with anasarca. He has continue to diurese and starting to feel better. Still very weak but no shortness of breath at rest or transfering with pt. slept well got up today with less help Exam Narrative: Exam Narrative: blood pressure 98/50 pulse is 68 saturating 94% on room air afebrile over 3L + output last 24 hours lungs clear today CV regular rate rhythm systolic murmur abdomen soft nontender extremities pitting edema of the arms and the legs but developing wrinkling of his arms with decreasing fluid. Neuro alert pleasant cooperative no focal deficits Objective Data Vital Signs Vital Signs: Vital Signs - 24 hr 04/06/20 14:00 04/06/20 22:00 04/06/20 23:18 Temperature 36.3 C L 36.2 C L Pulse Rate 80 88 77 Respiratory Rate 20 18 18 Blood Pressure 96/52 L 99/47 L Pulse Oximetry 99 98 97 04/07/20 02:00 04/07/20 06:00 04/07/20 09:46 Temperature 36.0 C L Pulse Rate 69 85 85 Respiratory Rate 18 20 Blood Pressure 102/51 L Pulse Oximetry 99 98 04/07/20 09:50 Temperature Pulse Rate 69 Respiratory Rate 16 Blood Pressure 97/53 L Pulse Oximetry 92 Intake/Output Intake/Output: Intake & Output 04/04/20 04/05/20 04/06/20 04/07/20 23:59 23:59 23:59 23:59 Intake Total 820 1220 720 240 Output Total 2650 2300 3900 1999 Balance
[2020-04-07] MEDS: WARFARIN (*PBKC) 3 MG TABLET PO (17:14)
[2020-04-08 05:43] LABS: Hematocrit 28.8 % (42.0-52.0); Hemoglobin 9.7 g/dL (14.0-18.0); Mean Corpuscular HGB Conc 33.7 g/dl (32-36); Mean Corpuscular Hemoglobin 29.7 pg (26-34); Mean Corpuscular Volume 88.1 fl (80-100); Mean Platelet Volume 9.2 fl (7.4-10.4); Platelet Count Result 176 k/mm3 (150-375); Red Blood Count 3.27 M/mm3 (4.6-6.20); Red Cell Distribution Width 14.6 % (11.5-14.5); White Blood Count 18.7 K/mm3 (4.5-10.0)
[2020-04-08 05:52] LABS: INR 2.6; Prothrombin Time 27.7 Seconds (11.1-14.7)
[2020-04-08 06:00] VITALS: BP 96/55; PULSE 84; RESP 16; TEMP 36.6; O2SAT 99
[2020-04-08 06:15] LABS: Anion Gap 0 mmol/L (8-16); Blood Urea Nitrogen 26 mg/dL (9-20); Calcium 7.8 mg/dL (8.4-10.2); Carbon Dioxide 37 mmol/L (22-30); Chloride 91 mmol/L (98-107); Estimated CRCL calculation 92 ml/min; Estimated Glomerular Filt Rate > 60; Glucose 86 mg/dL (75-110); Potassium 3.5 mmol/L (3.4-5.0); Sodium 128 mmol/L (137-145)
[2020-04-08] MEDS: VITAMIN B COMPLEX CAPSULE 1 CAP PO (08:47)
[2020-04-08] MEDS: SERTRALINE HCL 50 MG TABLET PO (08:47)
[2020-04-08] MEDS: EZETIMIBE 10 MG TABLET PO (08:47)
[2020-04-08 08:48] VITALS: PULSE 84
[2020-04-08] MEDS: METOPROLOL SUCCINATE EXT REL 25 MG TABCR PO (08:48)
[2020-04-08] MEDS: FERROUS SULFATE 324 MG TABLET PO (08:48)
[2020-04-08] MEDS: FUROSEMIDE INJ 40 MG/4 ML VIAL IV PUSH ×2 (08:48→16:57)
[2020-04-08] MEDS: TICAGRELOR 90 MG TABLET PO ×2 (08:48→16:56)
[2020-04-08] MEDS: ATORVASTATIN 40 MG TABLET 80 MG PO (08:48)
[2020-04-08] MEDS: ASCORBIC ACID 500 MG TABLET PO (08:48)
[2020-04-08] MEDS: TAMSULOSIN HCL 0.4 MG CAPSULE PO (08:48)
[2020-04-08] MEDS: predniSONE 10 MG TABLET PO (08:48)
[2020-04-08] MEDS: POTASSIUM CHLORIDE 20 MEQ TABLET 40 MEQ PO (08:54)
--- NOTE | 2020-04-08 11:46 | PM.PNCARD ---
Progress Note: A&P Assessment and Plan (1) Anasarca: Code(s): R60.1 - Generalized edema Status: Acute Assessment and Plan: Long-standing ischemic heart disease presenting with volume overload. Responded well to [place] over the weekend. Sodium now 128. Will continue furosemide for now. Already fluid restricted. Blood pressure and renal function are stable. Continue to monitor renal function and electrolytes daily. (2) Acute exacerbation of congestive heart failure: Code(s): I50.9 - Heart failure, unspecified Status: Acute Assessment and Plan: Ischemic cardiomyopathy as above. ICD. Previously on Entresto, would prefer to resume as BP and renal function permit. Continue Metoprolol succinate. (3) Coronary artery disease: Qualifiers: Coronary Disease-Associated Artery/Lesion type: [place] artery [place] vs. transplanted heart: [place] heart Associated angina: without angina Qualified Code(s): I25.10 - Atherosclerotic heart disease of [place] coronary artery without angina pectoris Code(s): I25.10 - Atherosclerotic heart disease of [place] coronary artery without angina pectoris Status: Acute Assessment and Plan: No ischemic symptoms (4) Current use of termination clerk anticoagulation: Code(s): Z79.01 - terminal operations supervisor (current) use of anticoagulants Status: Acute Assessment and Plan: History of DVT and pulmonary embolism. INR 2.6 Continue current dose of warfarin. Continue to monitor INR. Additional Plan Plan discussed with Dr. Valdez 1155 04/08/2020 Subjective Date/time seen: 04/08/20 11:46 Interval history: Follow-up for: shortness of breath / volume overload. Underlying ischemic heart disease. Date of service: 04/08/2020 Subjective: Up in the chair. Still needing assistance with the [employer]. Denied chest discomfort, shortness of breath, lightheadedness or palpitation. Review of Systems Constitutional: Constitutional: Denies chills and Reports weakness Eyes: Eyes: Denies blurry vision ENT: Reports Normal hearing present, Denies throat swelling and Denies tongue swelling Cardiovascular: Cardiovascular: Denies chest pain, Denies rapid heart rate, Reports edema ( Significantly improved) and Denies dyspnea Respiratory: Respiratory: Denies dyspnea and Denies wheezing Gastrointestinal: Gastrointestinal: Denies abdominal pain, Denies bloating, Denies constipation and Denies heartburn Genitourinary: Genitourinary: Denies hematuria Musculoskeletal: Musculoskeletal: Denies back pain and Reports arthralgias ( left knee postop) Integumentary/Breasts: Skin/Breast: Denies erythema and Denies rash Neurologic: Reports Normal hearing present and Reports weakness Psychiatric: Psychiatric: Denies anxiety and Denies depression Hematologic/Lymphatic: Hematologic/Lymphatic: Denies easy bleeding and Denies easy bruising Allergic/Immunologic: Allergic/Immunologic: Denies throat swelling, Denies tongue swelling and Denies wheezing Exam Const: General: comfortable and no acute distress Other: Obese white male comfortable in chair . Legs are elevated. HENMT: Mouth: Yes moist mucous membranes Eyes: Sclera: sclerae normal Pupils: Equal, round and reactive pupils present Neck: Neck: supple Resp: Effort & Inspection: normal respiratory effort and able to speak in complete sentences Auscultation: clear to auscultation bilaterally Cardio: Rate: regular rate Rhythm: abnormal rhythm irregularly irregular GI: Inspection: obesity Auscultation: normal bowel sounds Urinary Catheter: Urinary Catheter: patent and draining and urine clear Skin: General skin exam: normal color Lesions: no lesions Rashes: no rashes Neuro: Cranial nerves: Yes Equal, round and reactive pupils present and Yes Normal hearing present Cognitio
--- NOTE | 2020-04-08 13:00 | PM.IMPN ---
Progress Note: A&P Assessment and Plan (1) Acute exacerbation of congestive heart failure: Code(s): I50.9 - Heart failure, unspecified Status: Acute Assessment and Plan: acute exacerbation. Responding IV Lasix. Continue beta-viktoria and as per cardiology changed to metoprolol XL has been off THADDEUS-inhibitor due to recent bout of renal failure necessitating round of dialysis. If continues to improve and renal status remains stable could probably reinstate Thaddeus diuresing well again yesterday with addition of metolazone . had 2 days of metolazone 2.5 mg and diuresed very well but pressure is borderline and sodium has fallen to 128 despite fluid restriction so will hold on metolazone today PT OT working with patient (2) Coronary artery disease: Qualifiers: Coronary Disease-Associated Artery/Lesion type: [place] artery [place] vs. transplanted heart: [place] heart Associated angina: without angina Qualified Code(s): I25.10 - Atherosclerotic heart disease of [place] coronary artery without angina pectoris Code(s): I25.10 - Atherosclerotic heart disease of [place] coronary artery without angina pectoris Status: Acute Assessment and Plan: history. Troponin mild elevation secondary to heart failure with no ischemic event. Continue anti-platelet, statin, and beta-viktoria (3) Adrenal insufficiency: Code(s): E27.40 - Unspecified adrenocortical insufficiency Status: Acute Assessment and Plan: recently diagnosed. Continue prednisone and decreased to 10 qd today. The addition of fludrocortisone may have aggravated his heart failure but holding fludrocortisone could be contributing to the hyponatremia also, but most likely secondary to the addition of metolazone (4) Chronic anemia: Code(s): D64.9 - Anemia, unspecified Status: Acute Assessment and Plan: unchanged continue to monitor, WBC thought secondary to recent increase in steroid dosage (5) Chronic kidney disease: Code(s): N18.9 - Chronic kidney disease, unspecified Status: Acute Assessment and Plan: creatinine is remained normal with the increase in diuresis and will continue to follow. .08 today with bun 26 (6) Current use of senior care anticoagulation: Code(s): Z79.01 - [facility] (current) use of anticoagulants Status: Acute Assessment and Plan: history of DVT and PE continue warfarin with INR 2.6 today (7) Obstructive sleep apnea on CPAP: Code(s): G47.33 - Obstructive sleep apnea (adult) (pediatric); Z99.89 - Dependence on other enabling machines and devices Status: Acute Assessment and Plan: continue CPAP Subjective Date/time seen: 04/08/20 13:00 Interval history: Date of visit 04/08. 79-year-old white male with ischemic cardiomyopathy convalescing at local [facility] after complicated postop course of left total knee arthroplasty. admitted here with acute on chronic systolic heart failure with anasarca. He has continue to diurese and starting to feel better. Still very weak but no shortness of breath at rest or transferring with PT,. slept well PT reports slight improvement each day but still to assist with transferring Exam Narrative: Exam Narrative: blood pressure 96/54 pulse is 84 saturating 96% on room air afebrile over 6L + output last 48 hours lungs clear today CV regular rate rhythm systolic murmur abdomen soft nontender extremities pitting edema of the arms and the legs but developing wrinkling of his arms as edema subsides Neuro alert pleasant cooperative no focal deficits Objective Data Vital Signs Vital Signs: Vital Signs - 24 hr 04/07/20 14:00 04/07/20 16:30 04/07/20 20:38 Temperature 36.2 C L 36.7 C Pulse Rate 83 81 Respiratory Rate 18 16 Blood Pressure 88/52 L 96/50 L 98/58 L Pulse Oximetry 98 99 04/07/20 22:49 04/08/20 06:00 04/08/20 08:48 Temperature 36.6 C Pulse Rate 82 84 84
[2020-04-08 14:00] VITALS: BP 99/56; PULSE 82; RESP 18; TEMP 36.3; O2SAT 96
[2020-04-08] MEDS: WARFARIN (*PBKC) 3 MG TABLET PO (16:56)
[2020-04-08 22:00] VITALS: BP 107/49; PULSE 78; RESP 20; TEMP 36.6; O2SAT 99
[2020-04-08 23:23] VITALS: PULSE 84; RESP 20; O2SAT 97
[2020-04-09 03:12] VITALS: PULSE 79; RESP 12; O2SAT 97
[2020-04-09 06:00] VITALS: BP 103/48; PULSE 69; RESP 21; TEMP 36.1; O2SAT 100
[2020-04-09 06:04] LABS: Basophils Absolute Auto 0.1 K/mm3 (0.0-0.1); Basophils Percent Auto 0.3 % (0.2-1.2); Eosinophils Percent Auto 0.2 % (0-4.4); Hematocrit 29.1 % (42.0-52.0); Hemoglobin 9.7 g/dL (14.0-18.0); Immature Granulocyte Absolute 1.43 K/mm3 (0.00-0.031); Immature Granulocyte Percent A 7.5 % (0-0.5); Lymphocytes Absolute Auto 1.63 K/mm3 (0.9-3.2); Lymphocytes Percent Auto 8.5 % (18.3-44.2); Mean Corpuscular HGB Conc 33.3 g/dl (32-36); Mean Corpuscular Hemoglobin 29.8 pg (26-34); Mean Corpuscular Volume 89.5 fl (80-100); Mean Platelet Volume 9.4 fl (7.4-10.4); Monocytes Absolute Auto 1.8 K/mm3 (0.1-0.6); Monocytes Percent Auto 9.3 % (2.6-8.5); Neutrophils Absolute Auto 14.2 K/mm3 (1.3-6.7); Neutrophils Percent Auto 74.2 % (45.5-73.1); Platelet Count Result 182 k/mm3 (150-375); Red Blood Count 3.25 M/mm3 (4.6-6.20); Red Cell Distribution Width 14.6 % (11.5-14.5); White Blood Count 19.2 K/mm3 (4.5-10.0)
[2020-04-09 06:11] LABS: INR 2.6; Prothrombin Time 27.1 Seconds (11.1-14.7)
[2020-04-09 06:31] LABS: Anion Gap 5 mmol/L (8-16); Blood Urea Nitrogen 27 mg/dL (9-20); Calcium 7.3 mg/dL (8.4-10.2); Carbon Dioxide 33 mmol/L (22-30); Chloride 91 mmol/L (98-107); Estimated CRCL calculation 104 ml/min; Estimated Glomerular Filt Rate > 60; Glucose 84 mg/dL (75-110); Potassium 3.6 mmol/L (3.4-5.0); Sodium 129 mmol/L (137-145)
[2020-04-09 08:37] VITALS: PULSE 69
[2020-04-09] MEDS: ASCORBIC ACID 500 MG TABLET PO (08:37)
[2020-04-09] MEDS: VITAMIN B COMPLEX CAPSULE 1 CAP PO (08:37)
[2020-04-09] MEDS: METOPROLOL SUCCINATE EXT REL 25 MG TABCR PO (08:37)
[2020-04-09] MEDS: TAMSULOSIN HCL 0.4 MG CAPSULE PO (08:37)
[2020-04-09] MEDS: ATORVASTATIN 40 MG TABLET 80 MG PO (08:37)
[2020-04-09] MEDS: FERROUS SULFATE 324 MG TABLET PO (08:37)
[2020-04-09] MEDS: SERTRALINE HCL 50 MG TABLET PO (08:37)
[2020-04-09] MEDS: EZETIMIBE 10 MG TABLET PO (08:37)
[2020-04-09] MEDS: FUROSEMIDE INJ 40 MG/4 ML VIAL IV PUSH ×2 (08:42→16:58)
[2020-04-09] MEDS: TICAGRELOR 90 MG TABLET PO ×2 (08:42→16:57)
[2020-04-09] MEDS: predniSONE 10 MG TABLET PO (08:42)
--- NOTE | 2020-04-09 11:51 | PM.IMPN ---
Progress Note: A&P Assessment and Plan (1) Acute exacerbation of congestive heart failure: Code(s): I50.9 - Heart failure, unspecified Status: Acute Assessment and Plan: Patient admitted here on 03/29 for SOB and found to have acute CHF exacerbation. Started on lasix with excellent response. He did get metolazone once on 04/06 and again on 04/07 with added effect. Cumulative fluid output is 30L with negative balance of 18.7L. Continue beta-viktoria and as per cardiology changed to metoprolol XL. Has been off THADDEUS-inhibitor due to recent bout of renal failure necessitating round of dialysis. If continues to improve and renal status remains stable could probably reinstate Thaddeus with close monitoring. Sodium fell to 128 but stable at 129 today. Renal function normal. Continue to monitor. Continue PT/OT. WBC elevated due to steroids possibly - follow. (2) Coronary artery disease: Qualifiers: Associated angina: without angina Coronary Disease-Associated Artery/Lesion type: [place] artery [place] vs. transplanted heart: [place] heart Qualified Code(s): I25.10 - Atherosclerotic heart disease of [place] coronary artery without angina pectoris Code(s): I25.10 - Atherosclerotic heart disease of [place] coronary artery without angina pectoris Status: Acute Assessment and Plan: Patient with hx of CAD with stents. Troponin mildly elevated secondary to heart failure but not felt to be ischemic in nature. Trop peaked at 0.254. Continue anti-platelet, statin, and beta-viktoria. (3) Adrenal insufficiency: Code(s): E27.40 - Unspecified adrenocortical insufficiency Status: Acute Assessment and Plan: Patient recently diagnosed with adrenal insufficiency. Was on Prednisone and Fludrocortisone but the fluid cortisone was stopped due to his anasarca. But continues prednisone but have decreased the dose to 10 mg daily. the changes could be contributing to his hyponatremia although felt more likely related to the addition of the metolazone. Blood pressure remaining stable. Continue to monitor closely. (4) Chronic anemia: Code(s): D64.9 - Anemia, unspecified Status: Acute Assessment and Plan: Hemoglobin low but stable in the 9-10 range. Unclear on baseline. Continue to follow. (5) Chronic kidney disease: Code(s): N18.9 - Chronic kidney disease, unspecified Status: Acute Assessment and Plan: Has CKD but eGFR normal here. He did have Tessa at the outside hospital that required excessive fluid. Toelrating the IV diuretics. Continue to follow. 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 INR 2.6 today. Continue to follow. (7) Obstructive sleep apnea on CPAP: Code(s): G47.33 - Obstructive sleep apnea (adult) (pediatric); Z99.89 - Dependence on other enabling machines and devices Status: Acute Assessment and Plan: Stable. Continue CPAP Subjective Date/time seen: 04/09/20 11:51 Interval history: Date of visit 04/09 79yo male with ischemic cardiomyopathy convalescing at local retirement after complicated postop course of left total knee arthroplasty here for acute on chronic systolic heart failure with anasarca. The knee replacement was 02/26/20. Assuming care. Chart reviewed No problems overnight. Slept well. No CP or SOB. No cough. Up to the chair but had difficulty with pivoting. No n/v. Eating okay. Colon placed in ER here. Wore the mask last night. Exam Narrative: Exam Narrative: AF 97.0 103/48 69 21 100% RA Gen - NARD lying semirecumbent in a recliner Chest - few basilar rhonchi, PM/ICD in the left upper chest CV - RRR S1/S2 Abd - soft, NT/ND, +BS - Colon secured draining clear yellow urine. Ext - R>L
[2020-04-09 14:00] VITALS: BP 110/60; PULSE 89; RESP 16; TEMP 36.3; O2SAT 99
--- NOTE | 2020-04-09 15:19 | PM.PNCARD ---
Progress Note: A&P Assessment and Plan (1) Anasarca: Code(s): R60.1 - Generalized edema Status: Acute Assessment and Plan: Long-standing ischemic heart disease presenting with volume overload. Cumulative negative balance 17,865 cc. Responded well to Metolazone over the weekend. Sodium down to 128 04/08/2020. Metolazone on hold. Continue furosemide. Already fluid restricted. Blood pressure and renal function are stable. Continue to monitor renal function and electrolytes daily. (2) Acute exacerbation of congestive heart failure: Code(s): I50.9 - Heart failure, unspecified Status: Acute Assessment and Plan: Ischemic cardiomyopathy as above. ICD. Previously on Entresto, would prefer to resume as BP and renal function permit. Continue Metoprolol succinate. (3) Coronary artery disease: Qualifiers: Associated angina: without angina Coronary Disease-Associated Artery/Lesion type: [place] artery [place] vs. transplanted heart: [place] heart Qualified Code(s): I25.10 - Atherosclerotic heart disease of [place] coronary artery without angina pectoris Code(s): I25.10 - Atherosclerotic heart disease of [place] coronary artery without angina pectoris Status: Acute Assessment and Plan: No ischemic symptoms (4) Current use of intermediate manager anticoagulation: Code(s): Z79.01 - predatory animal exterminator (current) use of anticoagulants Status: Acute Assessment and Plan: History of DVT and pulmonary embolism. INR 2.6 04/09/2020. Continue current dose of warfarin. Continue to monitor INR. Additional Plan Continue PT/OT. He is insistent he is not going back to rehab. Still not being able to get out of bed or up and down from the chair with minimal assist. Plan discussed with Dr. Valdez [id number] 04/09/2020 Subjective Date/time seen: 04/09/20 15:19 Interval history: Follow-up for: shortness of breath / volume overload. Underlying ischemic heart disease. Date of service: 04/09/2020 Subjective:Back to bed. Still needing Alejandra Plus to get out of chair. No chest discomfort. Slept well. Slight shortness of breath with activity. No lightheadedness Review of Systems Constitutional: Constitutional: Denies chills and Reports weakness Eyes: Eyes: Denies blurry vision ENT: Reports hearing loss, Denies throat swelling and Denies tongue swelling Cardiovascular: Cardiovascular: Denies chest pain, Denies rapid heart rate, Reports edema ( Significantly improved) and Denies dyspnea Respiratory: Respiratory: Denies dyspnea and Denies wheezing Gastrointestinal: Gastrointestinal: Denies abdominal pain, Denies bloating, Denies constipation and Denies heartburn Genitourinary: Genitourinary: Denies hematuria Musculoskeletal: Musculoskeletal: Denies back pain and Reports arthralgias ( left knee postop) Integumentary/Breasts: Skin/Breast: Denies erythema and Denies rash Neurologic: Reports Normal hearing present and Reports weakness Psychiatric: Psychiatric: Denies anxiety and Denies depression Hematologic/Lymphatic: Hematologic/Lymphatic: Denies easy bleeding and Denies easy bruising Allergic/Immunologic: Allergic/Immunologic: Denies throat swelling, Denies tongue swelling and Denies wheezing Exam Const: General: comfortable and no acute distress Other: Obese white male comfortable back in bed. No chest discomfort. Slight shortness of breath with exertional activities. HENMT: Mouth: Yes moist mucous membranes Eyes: Sclera: sclerae normal Pupils: Equal, round and reactive pupils present Neck: Neck: normal visual inspection and supple Resp: Effort & Inspection: normal respiratory effort and able to speak in complete sentences Auscultation: clear to auscultation bilaterally Cardio: Rate: regular rate Rhythm: abnormal rhy
[2020-04-09] MEDS: WARFARIN (*PBKC) 3 MG TABLET PO (16:57)
[2020-04-09 22:00] VITALS: BP 96/40; PULSE 75; RESP 18; TEMP 36.8; O2SAT 95
[2020-04-09 22:30] VITALS: PULSE 69; RESP 19; O2SAT 95
[2020-04-10 01:59] VITALS: PULSE 72; RESP 16; O2SAT 96
[2020-04-10 06:00] VITALS: BP 97/46; PULSE 71; RESP 18; TEMP 36.3; O2SAT 99
[2020-04-10 06:07] LABS: Albumin Level 2.1 g/dL (3.5-5.1); Anion Gap 2 mmol/L (8-16); Basophils Percent Auto 0.2 % (0.2-1.2); Blood Urea Nitrogen 28 mg/dL (9-20); Calcium 7.5 mg/dL (8.4-10.2); Carbon Dioxide 38 mmol/L (22-30); Chloride 92 mmol/L (98-107); Eosinophils Absolute Auto 0.1 K/mm3 (0-0.3); Eosinophils Percent Auto 0.3 % (0-4.4); Estimated CRCL calculation 72 ml/min; Estimated Glomerular Filt Rate > 60; Glucose 88 mg/dL (75-110); Hematocrit 28.5 % (42.0-52.0); Hemoglobin 9.6 g/dL (14.0-18.0); Immature Granulocyte Percent A 7.9 % (0-0.5); Lymphocytes Absolute Auto 1.79 K/mm3 (0.9-3.2); Lymphocytes Percent Auto 9.5 % (18.3-44.2); Magnesium 1.9 mg/dL (1.6-2.3); Mean Corpuscular HGB Conc 33.7 g/dl (32-36); Mean Corpuscular Hemoglobin 30.2 pg (26-34); Mean Corpuscular Volume 89.6 fl (80-100); Mean Platelet Volume 9.4 fl (7.4-10.4); Monocytes Absolute Auto 1.8 K/mm3 (0.1-0.6); Monocytes Percent Auto 9.4 % (2.6-8.5); Neutrophils Absolute Auto 13.8 K/mm3 (1.3-6.7); Neutrophils Percent Auto 72.7 % (45.5-73.1); Phosphorus 3.6 mg/dL (2.5-4.5); Platelet Count Result 174 k/mm3 (150-375); Potassium 3.4 mmol/L (3.4-5.0); Red Blood Count 3.18 M/mm3 (4.6-6.20); Red Cell Distribution Width 14.6 % (11.5-14.5); Sodium 132 mmol/L (137-145); White Blood Count 18.9 K/mm3 (4.5-10.0)
[2020-04-10 06:09] LABS: INR 2.6; Prothrombin Time 27.5 Seconds (11.1-14.7)
[2020-04-10 09:41] VITALS: PULSE 71
[2020-04-10] MEDS: TICAGRELOR 90 MG TABLET PO ×2 (09:41→17:50)
[2020-04-10] MEDS: predniSONE 10 MG TABLET PO (09:41)
[2020-04-10] MEDS: TAMSULOSIN HCL 0.4 MG CAPSULE PO (09:41)
[2020-04-10] MEDS: EZETIMIBE 10 MG TABLET PO (09:41)
[2020-04-10] MEDS: METOPROLOL SUCCINATE EXT REL 25 MG TABCR PO (09:41)
[2020-04-10] MEDS: ATORVASTATIN 40 MG TABLET 80 MG PO (09:41)
[2020-04-10] MEDS: ASCORBIC ACID 500 MG TABLET PO (09:41)
[2020-04-10] MEDS: FUROSEMIDE INJ 40 MG/4 ML VIAL IV PUSH ×2 (09:41→17:50)
[2020-04-10] MEDS: SERTRALINE HCL 50 MG TABLET PO (09:41)
[2020-04-10] MEDS: VITAMIN B COMPLEX CAPSULE 1 CAP PO (09:41)
[2020-04-10] MEDS: FERROUS SULFATE 324 MG TABLET PO (09:42)
--- NOTE | 2020-04-10 13:46 | PM.IMPN ---
Progress Note: A&P Assessment and Plan (1) Acute exacerbation of congestive heart failure: Code(s): I50.9 - Heart failure, unspecified Status: Acute Assessment and Plan: Patient admitted here on 03/29 for SOB and found to have acute CHF exacerbation. Started on lasix with excellent response. He did get metolazone once on 04/06 and again on 04/07 with added effect. Cumulative fluid output is 32L with negative balance of 18.5L. Continue beta-viktoria and as per cardiology changed to metoprolol XL. Has been off THADDEUS-inhibitor due to recent bout of renal failure necessitating round of dialysis. If continues to improve, BP better and renal status remains stable could probably reinstate Thaddeus with close monitoring. Sodium fell to 128 but stable at 132 today. Renal function normal. Continue to monitor. Continue PT/OT. WBC elevated due to steroids possibly - follow for now. (2) Coronary artery disease: Qualifiers: Associated angina: without angina Coronary Disease-Associated Artery/Lesion type: [place] artery [place] vs. transplanted heart: [place] heart Qualified Code(s): I25.10 - Atherosclerotic heart disease of [place] coronary artery without angina pectoris Code(s): I25.10 - Atherosclerotic heart disease of [place] coronary artery without angina pectoris Status: Acute Assessment and Plan: Patient with hx of CAD with stents. Troponin mildly elevated secondary to heart failure but not felt to be ischemic in nature. Trop peaked at 0.254. Lexiscan stress test in October 2019 was normal. Continue anti-platelet, statin, and beta-viktoria. (3) Adrenal insufficiency: Code(s): E27.40 - Unspecified adrenocortical insufficiency Status: Acute Assessment and Plan: Patient recently diagnosed with adrenal insufficiency. Was on Prednisone and Fludrocortisone but the fludrocortisone was stopped due to his anasarca. But continues prednisone but have decreased the dose to 10 mg daily. These changes could be contributing to his hyponatremia although felt more likely related to the addition of the metolazone. Blood pressure softer. Will change to HC at 10mg in the morning and 5mg in the evening. Continue to monitor closely. (4) Chronic anemia: Code(s): D64.9 - Anemia, unspecified Status: Acute Assessment and Plan: Hemoglobin low but stable in the 9-10 range. Unclear on baseline. Hgb listed from the outside hospital was 8 range. Continue to follow. (5) Chronic kidney disease: Code(s): N18.9 - Chronic kidney disease, unspecified Status: Acute Assessment and Plan: Has CKD but eGFR normal here. He did have MARIAN after his Left TKA and did receive one round of HD at the outside hospital that required IV fluid. Cr remaining stable and tolerating the diuretics. Continue to monitor closely. (6) Current use of technician terminal and repeater anticoagulation: Code(s): Z79.01 - penitentiary (current) use of anticoagulants Status: Acute Assessment and Plan: History of DVT and PE currnetly on chronic warfarin treatment. INR 2.6 today. Continue to follow. (7) Obstructive sleep apnea on CPAP: Code(s): G47.33 - Obstructive sleep apnea (adult) (pediatric); Z99.89 - Dependence on other enabling machines and devices Status: Acute Assessment and Plan: Stable. Continue CPAP Subjective Date/time seen: 04/10/20 13:46 Interval history: Date of visit 04/10 79yo male with ischemic cardiomyopathy convalescing at local [facility] after complicated postop course of left total knee arthroplasty here for acute on chronic systolic heart failure with anasarca. The knee replacement was 02/26/20. No complaints. No CP. SOB much better. Not been out of bed yet today. Eating normally. No n/v. Exam Narrative: Exam Narrative: AF 97.3 97/46 71 18 99% RA Gen - NARD lying semirecumbent in bed Chest - few scattered rhonchi, good AE CV
[2020-04-10] MEDS: POTASSIUM CHLORIDE 20 MEQ TABLET 40 MEQ PO (13:50)
[2020-04-10 14:00] VITALS: BP 100/56; PULSE 96; RESP 16; TEMP 36.3; O2SAT 99
[2020-04-10] MEDS: WARFARIN (*PBKC) 3 MG TABLET PO (17:50)
[2020-04-10] MEDS: HYDROCORTISONE 5 MG TABLET PO (17:51)
[2020-04-10 22:00] VITALS: BP 103/53; PULSE 95; RESP 20; TEMP 36.6; O2SAT 98
[2020-04-10 22:49] VITALS: PULSE 73; RESP 15; O2SAT 96
[2020-04-11 01:44] VITALS: PULSE 67; RESP 15; O2SAT 96
[2020-04-11 05:58] LABS: Albumin Level 2.2 g/dL (3.5-5.1); Anion Gap 1 mmol/L (8-16); Blood Urea Nitrogen 29 mg/dL (9-20); Calcium 7.7 mg/dL (8.4-10.2); Carbon Dioxide 38 mmol/L (22-30); Chloride 93 mmol/L (98-107); Estimated CRCL calculation 81 ml/min; Estimated Glomerular Filt Rate > 60; Glucose 87 mg/dL (75-110); Phosphorus 3.6 mg/dL (2.5-4.5); Potassium 3.5 mmol/L (3.4-5.0); Sodium 132 mmol/L (137-145)
[2020-04-11 06:00] VITALS: BP 105/64; PULSE 72; RESP 21; TEMP 36.8; O2SAT 100
[2020-04-11 06:03] LABS: Hematocrit 29.4 % (42.0-52.0); Hemoglobin 9.7 g/dL (14.0-18.0); Mean Corpuscular Hemoglobin 29.1 pg (26-34); Mean Corpuscular Volume 88.3 fl (80-100); Mean Platelet Volume 9.3 fl (7.4-10.4); Platelet Count Result 180 k/mm3 (150-375); Red Blood Count 3.33 M/mm3 (4.6-6.20); Red Cell Distribution Width 14.6 % (11.5-14.5); White Blood Count 18.5 K/mm3 (4.5-10.0)
[2020-04-11 06:20] LABS: INR 2.5; Prothrombin Time 26.4 Seconds (11.1-14.7)
[2020-04-11 09:28] VITALS: PULSE 72
[2020-04-11] MEDS: METOPROLOL SUCCINATE EXT REL 25 MG TABCR PO (09:28)
[2020-04-11] MEDS: VITAMIN B COMPLEX CAPSULE 1 CAP PO (09:28)
[2020-04-11] MEDS: ASCORBIC ACID 500 MG TABLET PO (09:28)
[2020-04-11] MEDS: TICAGRELOR 90 MG TABLET PO ×2 (09:28→18:24)
[2020-04-11] MEDS: FERROUS SULFATE 324 MG TABLET PO (09:29)
[2020-04-11] MEDS: HYDROCORTISONE 10 MG TABLET PO (09:29)
[2020-04-11] MEDS: ATORVASTATIN 40 MG TABLET 80 MG PO (09:30)
[2020-04-11] MEDS: EZETIMIBE 10 MG TABLET PO (09:30)
[2020-04-11] MEDS: SERTRALINE HCL 50 MG TABLET PO (09:30)
[2020-04-11] MEDS: TAMSULOSIN HCL 0.4 MG CAPSULE PO (09:30)
[2020-04-11] MEDS: FUROSEMIDE INJ 40 MG/4 ML VIAL IV PUSH ×2 (09:31→18:23)
--- NOTE | 2020-04-11 09:44 | PM.IMPN ---
Progress Note: A&P Assessment and Plan (1) Acute exacerbation of congestive heart failure: Code(s): I50.9 - Heart failure, unspecified Status: Acute Assessment and Plan: Patient admitted here on 03/29 for SOB and found to have acute CHF exacerbation with anasarca. Started on lasix with excellent response. He did get metolazone once on 04/06 and again on 04/07 with added effect. Cumulative fluid output is 33.5L with negative balance of 19.4L. Continue beta-viktoria and as per cardiology changed to metoprolol XL. Has been off THADDEUS-inhibitor due to recent bout of renal failure necessitating round of dialysis. If continues to improve, BP better and renal status remains stable could probably reinstate Thaddeus with close monitoring. Sodium fell to 128 but stable at 132 today. Renal function normal. Continue to monitor. Continue PT/OT. Repeat metolazone today. Add Gutierrez baird WBC elevated due to steroids possibly - continue to follow. (2) Coronary artery disease: Qualifiers: Associated angina: without angina Coronary Disease-Associated Artery/Lesion type: [place] artery [place] vs. transplanted heart: [place] heart Qualified Code(s): I25.10 - Atherosclerotic heart disease of [place] coronary artery without angina pectoris Code(s): I25.10 - Atherosclerotic heart disease of [place] coronary artery without angina pectoris Status: Acute Assessment and Plan: Patient with hx of CAD with stents. Troponin mildly elevated secondary to heart failure but not felt to be ischemic in nature. Trop peaked at 0.254. Lexiscan stress test in October 2019 was normal. Continue anti-platelet, statin, and beta-viktoria. (3) Adrenal insufficiency: Code(s): E27.40 - Unspecified adrenocortical insufficiency Status: Acute Assessment and Plan: Patient recently diagnosed with adrenal insufficiency. Was on Prednisone and Fludrocortisone but the fludrocortisone was stopped due to his anasarca. He continued prednisone but the dose was decreased to 10 mg daily. These changes could be contributing to his hyponatremia although felt this more likely related to the addition of the metolazone. Blood pressure was softer so changed to HC at 10mg in the morning and 5mg in the evening. BP better. Continue to monitor closely. (4) Chronic anemia: Code(s): D64.9 - Anemia, unspecified Status: Acute Assessment and Plan: Hemoglobin low but stable in the 9-10 range. Unclear on baseline. Hgb listed from the outside hospital was 8 range. Continue to follow. (5) Chronic kidney disease: Code(s): N18.9 - Chronic kidney disease, unspecified Status: Acute Assessment and Plan: Has CKD but eGFR normal here. He did have MARIAN after his left TKA and did receive one round of HD at the outside hospital and required IV fluid. Cr remaining stable and tolerating the diuretics. Continue to monitor closely. (6) Current use of fdc anticoagulation: Code(s): Z79.01 - intermediate teacher (current) use of anticoagulants Status: Acute Assessment and Plan: History of DVT and PE currently on chronic warfarin treatment. INR 2.5 today. Continue to follow. (7) Obstructive sleep apnea on CPAP: Code(s): G47.33 - Obstructive sleep apnea (adult) (pediatric); Z99.89 - Dependence on other enabling machines and devices Status: Acute Assessment and Plan: Stable. Continue CPAP Subjective Date/time seen: 04/11/20 09:44 Interval history: Date of visit 04/11 79yo male with ischemic cardiomyopathy [facility] complicated postop course of left total knee arthroplasty here for acute on chronic systolic heart failure with anasarca. The knee replacement was 02/26/20. No shortness of breath, cough or chest pain. He denies nausea, vomiting or diarrhea. Eating well. Slept well last night. Exam Narrative: Exam Narrative: AF 98.2 105/64 72
[2020-04-11 14:00] VITALS: BP 101/55; PULSE 70; RESP 18; TEMP 36.7; O2SAT 100
--- NOTE | 2020-04-11 15:14 | PM.PNCARD ---
Progress Note: A&P Assessment and Plan (1) Anasarca: Code(s): R60.1 - Generalized edema Status: Acute Assessment and Plan: Long-standing ischemic heart disease presenting with volume overload. Cumulative negative balance 19,200cc. Metolazone most likely the reason for drop in his sodium. Back up to 132 from low of 128. Did not diurese as well yesterday. Agree with dose of metolazone today. Continue IV furosemide. Will eventurally need to transition to PO. Continue to monitor renal function and electrolytes (2) Acute exacerbation of congestive heart failure: Code(s): I50.9 - Heart failure, unspecified Status: Acute Assessment and Plan: Ischemic cardiomyopathy as above. ICD. Previously on Entresto, would prefer to resume as BP and renal function permit. Continue Metoprolol succinate. BP soft at times (3) Coronary artery disease: Qualifiers: Coronary Disease-Associated Artery/Lesion type: [place] artery [place] vs. transplanted heart: [place] heart Associated angina: without angina Qualified Code(s): I25.10 - Atherosclerotic heart disease of [place] coronary artery without angina pectoris Code(s): I25.10 - Atherosclerotic heart disease of [place] coronary artery without angina pectoris Status: Acute Assessment and Plan: No ischemic symptoms (4) Current use of terminologist anticoagulation: Code(s): Z79.01 - terminal manager (current) use of anticoagulants Status: Acute Assessment and Plan: History of DVT and pulmonary embolism. INR 2.6 04/11/2020. Continue current dose of warfarin. Continue to monitor INR. Additional Plan Continue PT/OT. Plan discussed with Dr. Valdez [id number] 04/11/2020 Subjective Date/time seen: 04/11/20 15:14 Interval history: Follow-up for: shortness of breath / volume overload. Underlying ischemic heart disease. Date of service: 04/11/2020 Subjective:Up in chair. at bedside. Hopeful that he will get to go to [facility]. No chest pain, shortness of breath, lightheadedness or palpitations. Stood with Alejandra Steady Review of Systems Constitutional: Constitutional: Denies chills and Reports weakness Eyes: Eyes: Denies blurry vision ENT: Reports hearing loss, Denies throat swelling and Denies tongue swelling Cardiovascular: Cardiovascular: Denies chest pain, Denies rapid heart rate, Reports edema ( Significantly improved) and Denies dyspnea Respiratory: Respiratory: Denies dyspnea and Denies wheezing Gastrointestinal: Gastrointestinal: Denies abdominal pain, Denies bloating, Denies constipation and Denies heartburn Genitourinary: Genitourinary: Denies hematuria Musculoskeletal: Musculoskeletal: Denies back pain and Reports arthralgias ( left knee postop) Integumentary/Breasts: Skin/Breast: Denies erythema and Denies rash Neurologic: Reports weakness Psychiatric: Psychiatric: Denies anxiety and Denies depression Hematologic/Lymphatic: Hematologic/Lymphatic: Denies easy bleeding and Denies easy bruising Allergic/Immunologic: Allergic/Immunologic: Denies throat swelling, Denies tongue swelling and Denies wheezing Exam Const: General: comfortable and no acute distress Other: Obese white male comfortable up in chair. Thigh high RAGHAV hose on . Legs elevated No chest discomfort. HENMT: Mouth: Yes moist mucous membranes Eyes: Sclera: sclerae normal Pupils: Equal, round and reactive pupils present Neck: Neck: normal visual inspection and supple Other: no obvious JVD Resp: Effort & Inspection: normal respiratory effort and able to speak in complete sentences Auscultation: clear to auscultation bilaterally Cardio: Rate: regular rate Rhythm: abnormal rhythm irregularly irregular GI: Inspection: obesity Auscultation: normal bowel sounds Urinary Catheter: Urin
[2020-04-11] MEDS: metOLazone 2.5 MG TABLET PO (16:59)
[2020-04-11] MEDS: WARFARIN (*PBKC) 3 MG TABLET PO (18:24)
[2020-04-11] MEDS: HYDROCORTISONE 5 MG TABLET PO (18:24)
[2020-04-11 22:00] VITALS: BP 103/46; PULSE 84; RESP 21; TEMP 36.4; O2SAT 100
[2020-04-11 22:30] VITALS: PULSE 76; RESP 20; O2SAT 97
[2020-04-12 05:46] LABS: Hematocrit 29.6 % (42.0-52.0); Hemoglobin 9.6 g/dL (14.0-18.0); Mean Corpuscular HGB Conc 32.4 g/dl (32-36); Mean Corpuscular Hemoglobin 29.7 pg (26-34); Mean Corpuscular Volume 91.6 fl (80-100); Mean Platelet Volume 9.3 fl (7.4-10.4); Platelet Count Result 181 k/mm3 (150-375); Red Blood Count 3.23 M/mm3 (4.6-6.20); Red Cell Distribution Width 14.9 % (11.5-14.5); White Blood Count 16.7 K/mm3 (4.5-10.0)
[2020-04-12 06:00] VITALS: BP 107/54; PULSE 77; RESP 21; TEMP 36.5; O2SAT 100
[2020-04-12 06:05] LABS: Anion Gap 3 mmol/L (8-16); Blood Urea Nitrogen 28 mg/dL (9-20); Calcium 7.6 mg/dL (8.4-10.2); Carbon Dioxide 36 mmol/L (22-30); Chloride 93 mmol/L (98-107); Estimated CRCL calculation 80 ml/min; Estimated Glomerular Filt Rate > 60; Glucose 90 mg/dL (75-110); Potassium 3.1 mmol/L (3.4-5.0); Sodium 132 mmol/L (137-145)
[2020-04-12 08:46] LABS: INR 2.1; Prothrombin Time 23.2 Seconds (11.1-14.7)
[2020-04-12 09:41] VITALS: PULSE 77
[2020-04-12] MEDS: TAMSULOSIN HCL 0.4 MG CAPSULE PO (09:41)
[2020-04-12] MEDS: FUROSEMIDE INJ 40 MG/4 ML VIAL IV PUSH (09:41)
[2020-04-12] MEDS: METOPROLOL SUCCINATE EXT REL 25 MG TABCR PO (09:41)
[2020-04-12] MEDS: FERROUS SULFATE 324 MG TABLET PO (09:41)
[2020-04-12] MEDS: HYDROCORTISONE 10 MG TABLET PO (09:41)
[2020-04-12] MEDS: EZETIMIBE 10 MG TABLET PO (09:41)
[2020-04-12] MEDS: POTASSIUM CHLORIDE 20 MEQ TABLET 40 MEQ PO (09:41)
[2020-04-12] MEDS: SERTRALINE HCL 50 MG TABLET PO (09:41)
[2020-04-12] MEDS: VITAMIN B COMPLEX CAPSULE 1 CAP PO (09:41)
[2020-04-12] MEDS: TICAGRELOR 90 MG TABLET PO ×2 (09:41→18:02)
[2020-04-12] MEDS: ATORVASTATIN 40 MG TABLET 80 MG PO (09:41)
[2020-04-12] MEDS: ASCORBIC ACID 500 MG TABLET PO (09:41)
--- NOTE | 2020-04-12 09:53 | PM.PNCARD ---
Progress Note: A&P Assessment and Plan (1) Anasarca: Code(s): R60.1 - Generalized edema Status: Acute Assessment and Plan: Long-standing ischemic heart disease presenting with volume overload. Cumulative negative balance of over 20 L Metolazone most likely the reason for drop in his sodium. Back up to 132 from low of 128. KCL 40 mEq p.o. x1. oral furosemide 40 mg p.o. b.i.d.. Orders put in to be started tomorrow. DC IV furosemide after today's dosing Continue to monitor renal function and electrolytes PA and lateral chest x-ray today (2) Acute exacerbation of congestive heart failure: Code(s): I50.9 - Heart failure, unspecified Status: Acute Assessment and Plan: Ischemic cardiomyopathy as above. ICD. Previously on Entresto, would prefer to resume as BP and renal function permit. Continue Metoprolol succinate. BP soft at times (3) Coronary artery disease: Qualifiers: Coronary Disease-Associated Artery/Lesion type: [place] artery [place] vs. 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 INR 2.6 04/11/2020. Continue current dose of warfarin. Continue to monitor INR. Additional Plan Subjective Date/time seen: 04/12/20 09:53 Interval history: Follow-up for: shortness of breath / volume overload. Underlying ischemic heart disease. Date of service: 04/12/2020 Subjective:Up in chair. he is agreeable to TR see if he qualifies. No chest pain, shortness of breath, lightheadedness or palpitations. Swelling has improved dramatically and is continuing to do so Review of Systems Constitutional: Constitutional: Denies chills and Reports weakness Eyes: Eyes: Denies blurry vision ENT: Reports hearing loss, Denies throat swelling and Denies tongue swelling Cardiovascular: Cardiovascular: Denies chest pain, Denies rapid heart rate, Reports edema ( Significantly improved) and Denies dyspnea Respiratory: Respiratory: Denies dyspnea and Denies wheezing Gastrointestinal: Gastrointestinal: Denies abdominal pain, Denies bloating, Denies constipation and Denies heartburn Genitourinary: Genitourinary: Denies hematuria Musculoskeletal: Musculoskeletal: Denies back pain and Reports arthralgias ( left knee postop) Integumentary/Breasts: Skin/Breast: Denies erythema and Denies rash Neurologic: Reports weakness Psychiatric: Psychiatric: Denies anxiety and Denies depression Hematologic/Lymphatic: Hematologic/Lymphatic: Denies easy bleeding and Denies easy bruising Allergic/Immunologic: Allergic/Immunologic: Denies throat swelling, Denies tongue swelling and Denies wheezing Exam Const: General: comfortable and no acute distress Other: Obese white male comfortable up in chair. Thigh high RAGHAV hose on . Legs elevated No chest discomfort. HENMT: Mouth: Yes moist mucous membranes Eyes: Sclera: sclerae normal Pupils: Equal, round and reactive pupils present Neck: Neck: normal visual inspection and supple Thyroid: thyroid normal Other: no obvious JVD Resp: Effort & Inspection: normal respiratory effort and able to speak in complete sentences Auscultation: clear to auscultation bilaterally Other: CTA bilaterally Cardio: Rate: regular rate Rhythm: abnormal rhythm irregularly irregular GI: Inspection: obesity Auscultation: normal
--- NOTE | 2020-04-12 10:59 | PCNWS ---
Weekly nutritional screen. Patient is tolerating current diet with adequate intake. No weight loss reported. No nutritional needs at this time.
[2020-04-12 14:00] VITALS: BP 88/58; PULSE 86; RESP 16; TEMP 36.6; O2SAT 98
--- NOTE | 2020-04-12 14:32 | PC.NURSE ---
To Radiology per stretcher.
--- NOTE | 2020-04-12 15:24 | PC.NURSE ---
Return from Radiology per hospital bed.
--- NOTE | 2020-04-12 17:37 | PM.IMPN ---
Progress Note: A&P Assessment and Plan (1) Acute exacerbation of congestive heart failure: Code(s): I50.9 - Heart failure, unspecified Status: Acute Assessment and Plan: Patient admitted here on 03/29 for SOB and found to have acute CHF exacerbation with anasarca. Started on IV Lasix with excellent response. He did get metolazone once on 04/06 and again on 04/07 with added effect. Metolazone repeated 04/11. Cumulative fluid output is 36.5L with negative balance of 20.6L. Continue beta-viktoria and as per cardiology changed to metoprolol XL. Has been off THADDEUS-inhibitor due to recent bout of renal failure necessitating round of dialysis and soft BP. If continues to improve and BP better and renal status remains stable, could probably reinstate Thaddeus with close monitoring. Sodium fell to 128 but stable at 132 today. Renal function normal. Will be changed to oral Lasix tomorrow. Continue to monitor. Continue PT/OT. Remove Colon. Continue Gutierrez hose. WBC elevated due to steroids - WBC better today. (2) Coronary artery disease: Qualifiers: Associated angina: without angina Coronary Disease-Associated Artery/Lesion type: [place] artery [place] vs. transplanted heart: [place] heart Qualified Code(s): I25.10 - Atherosclerotic heart disease of [place] coronary artery without angina pectoris Code(s): I25.10 - Atherosclerotic heart disease of [place] coronary artery without angina pectoris Status: Acute Assessment and Plan: Patient with hx of CAD with stents. Troponin mildly elevated secondary to heart failure but not felt to be ischemic in nature. Trop peaked at 0.254. Lexiscan stress test in October 2019 was normal. Continue Brilinta, Lipitor, and Metoprolol. (3) Adrenal insufficiency: Code(s): E27.40 - Unspecified adrenocortical insufficiency Status: Acute Assessment and Plan: Patient recently diagnosed with adrenal insufficiency. Was on Prednisone and Fludrocortisone but the fludrocortisone was stopped due to his anasarca. He continued prednisone but the dose was decreased to 10 mg daily. These changes could be contributing to his hyponatremia although felt this more likely related to the addition of the metolazone. Blood pressure was softer so changed to HC at 10mg in the morning and 5mg in the evening. BP has been more stable except for last value which could be a fluke or related to overdiuresis. Repeat BP. Continue to monitor closely. Repeat BP 92/56 - will hold Lasix tonight. (4) Chronic anemia: Code(s): D64.9 - Anemia, unspecified Status: Acute Assessment and Plan: Hemoglobin low but stable in the 9-10 range. Unclear on baseline. Hgb listed from the outside hospital was 8 range. Continue to follow. (5) Chronic kidney disease: Code(s): N18.9 - Chronic kidney disease, unspecified Status: Acute Assessment and Plan: Has CKD but eGFR normal here. He did have MARIAN after his left TKA and did receive one round of HD at the outside hospital and required IV fluid. Cr remaining stable and tolerating the diuretics. Continue to monitor closely. (6) Current use of [facility]p anticoagulation: Code(s): Z79.01 - termite helper (current) use of anticoagulants Status: Acute Assessment and Plan: History of DVT and PE currently on chronic warfarin treatment. INR 2.1 today. Continue to follow. (7) Obstructive sleep apnea on CPAP: Code(s): G47.33 - Obstructive sleep apnea (adult) (pediatric); Z99.89 - Dependence on other enabling machines and devices Status: Acute Assessment and Plan: Stable. Continue CPAP Subjective Date/time seen: 04/12/20 17:37 Interval history: Date of visit 04/12 79yo male with ischemic cardiomyopathy [facility] after complicated postop course of left total knee arthroplasty here for acute on chronic systolic heart failure with anasarca. The
[2020-04-12 17:52] VITALS: BP 92/56
[2020-04-12] MEDS: WARFARIN (*PBKC) 3 MG TABLET PO (18:02)
[2020-04-12] MEDS: HYDROCORTISONE 5 MG TABLET PO (18:02)
[2020-04-12] MEDS: SILVERGEL (ELTA) 45 ML 1 APPLIC TOPICAL (18:03)
[2020-04-12 20:00] VITALS: BP 90/48; PULSE 96; RESP 20; TEMP 36.7; O2SAT 94
[2020-04-12 22:51] VITALS: PULSE 82; RESP 22; O2SAT 97
[2020-04-13 02:39] VITALS: PULSE 79; RESP 23; O2SAT 97
[2020-04-13 04:30] VITALS: BP 92/51; PULSE 81; RESP 20; TEMP 37.1; O2SAT 98
[2020-04-13 06:10] LABS: Hematocrit 27.4 % (42.0-52.0); Hemoglobin 9.2 g/dL (14.0-18.0); Mean Corpuscular HGB Conc 33.6 g/dl (32-36); Mean Corpuscular Hemoglobin 29.5 pg (26-34); Mean Corpuscular Volume 87.8 fl (80-100); Mean Platelet Volume 9.1 fl (7.4-10.4); Platelet Count Result 179 k/mm3 (150-375); Red Blood Count 3.12 M/mm3 (4.6-6.20); White Blood Count 16.9 K/mm3 (4.5-10.0)
[2020-04-13 06:22] LABS: INR 2.5; Prothrombin Time 26.4 Seconds (11.1-14.7)
[2020-04-13 06:38] LABS: Anion Gap 1 mmol/L (8-16); Blood Urea Nitrogen 33 mg/dL (9-20); Calcium 7.5 mg/dL (8.4-10.2); Carbon Dioxide 37 mmol/L (22-30); Chloride 93 mmol/L (98-107); Estimated CRCL calculation 107 ml/min; Estimated Glomerular Filt Rate > 60; Glucose 95 mg/dL (75-110); Magnesium 2.1 mg/dL (1.6-2.3); Potassium 3.4 mmol/L (3.4-5.0); Sodium 131 mmol/L (137-145)
[2020-04-13] MEDS: SERTRALINE HCL 50 MG TABLET PO (09:32)
[2020-04-13] MEDS: ATORVASTATIN 40 MG TABLET 80 MG PO (09:32)
[2020-04-13 09:33] VITALS: PULSE 81
[2020-04-13] MEDS: TICAGRELOR 90 MG TABLET PO ×2 (09:33→18:20)
[2020-04-13] MEDS: TAMSULOSIN HCL 0.4 MG CAPSULE PO (09:33)
[2020-04-13] MEDS: ASCORBIC ACID 500 MG TABLET PO (09:33)
[2020-04-13] MEDS: HYDROCORTISONE 10 MG TABLET PO (09:33)
[2020-04-13] MEDS: EZETIMIBE 10 MG TABLET PO (09:33)
[2020-04-13] MEDS: FUROSEMIDE 40 MG TABLET PO ×2 (09:33→18:20)
[2020-04-13] MEDS: METOPROLOL SUCCINATE EXT REL 25 MG TABCR PO (09:33)
[2020-04-13] MEDS: FERROUS SULFATE 324 MG TABLET PO (09:33)
[2020-04-13] MEDS: VITAMIN B COMPLEX CAPSULE 1 CAP PO (09:34)
[2020-04-13] MEDS: SILVERGEL (ELTA) 45 ML 1 APPLIC TOPICAL (09:34)
--- NOTE | 2020-04-13 11:26 | PM.PNCARD ---
Progress Note: A&P Additional Plan Pt has been effectively diuresed . OK from my standpoint to arrange for disposition . Apparently too weak to stand/ ambulate and will NOT agree to NH transfer>> awaiting [facility] decision apparently Gerardo Mederos MD [facility] Subjective Date/time seen: Date of service:04/13/20 11:26 Interval history: Feels well , No CV complaints Discussed disposition . Waiting to hear if accepting on [facility]. will NOT agree to NH transfer Exam Const: General: comfortable and no acute distress HENMT: Mouth: Yes moist mucous membranes Eyes: Sclera: sclerae normal Pupils: Equal, round and reactive pupils present Neck: Neck: JVD Thyroid: thyroid normal Carotids: normal carotid upstroke Resp: Effort & Inspection: normal respiratory effort Auscultation: clear to auscultation bilaterally Cardio: Rate: regular rate Rhythm: regular rhythm GI: Auscultation: normal bowel sounds Skin: General skin exam: normal color Extrem: General: edema (Mild LE edema persists ) bilateral Objective Data Vital Signs Vital Signs: Vital Signs - 24 hr 04/12/20 14:00 04/12/20 17:52 04/12/20 20:00 Temperature 36.6 C 36.7 C Pulse Rate 86 96 Respiratory Rate 16 20 Blood Pressure 88/58 L 92/56 L 90/48 L Pulse Oximetry 98 94 04/12/20 22:51 04/13/20 02:39 04/13/20 04:30 Temperature 37.1 C Pulse Rate 82 79 81 Respiratory Rate 22 H 23 H 20 Blood Pressure 92/51 L Pulse Oximetry 97 97 98 04/13/20 09:33 Temperature Pulse Rate 81 Respiratory Rate Blood Pressure Pulse Oximetry Intake/Output Intake/Output: Intake & Output 04/10/20 04/11/20 04/12/20 04/13/20 23:59 23:59 23:59 23:59 Intake Total 1195 1140 1150 390 Output Total 1800 1350 8815 450 Balance -605 -210 -1325 -60 Meds/Results Medications: Active Medications Generic Name Dose Route Start Last Admin Trade Name Freq PRN Reason Stop Dose Admin Ascorbic Acid 500 mg 03/30/20 09:00 04/13/20 09:33 Vitamin C PO 04/29/20 09:01 500 mg DAILY CHARAN Administration Atorvastatin Calcium 80 mg 03/30/20 09:00 04/13/20 09:32 Lipitor PO 80 mg DAILY CHARAN Administration Ezetimibe 10 mg 03/30/20 09:00 04/13/20 09:33 Zetia PO 10 mg DAILY CHARAN Administration Ferrous Sulfate 324 mg 03/30/20 08:00 04/13/20 09:33 Ferrous Sulfate PO 324 mg DAILY@0800 CHARAN Administration Furosemide 40 mg 04/13/20 09:00 04/13/20 09:33 Furosemide 40 Mg Tablet PO 40 mg BID CHARAN Administration Hydrocortisone 10 mg 04/11/20 08:00 04/13/20 09:33 Hydrocortisone 10 Mg Tablet PO 10 mg DAILY@0800 CHARAN Administration Hydrocortisone 5 mg 04/10/20 18:00 04/12/20 18:02 Hydrocortisone 5 Mg Tablet PO 5 mg DAILY@1800 CHARAN Administration Metoprolol Succinate 25 mg 04/06/20 09:00 04/13/20 09:33 Metoprolol Succinate Ext Rel 25 Mg Tabcr PO 25 mg QAM CHARAN Administration Miconazole Nitrate 1 applic 03/30/20 21:00 04/13/20 09:34 Aloe [place] TOPICAL 1 applic Q12HR CHARAN Administration Ondansetron HCl 4 mg 03/29/20 23:09 Zofran Odt PO Q6H PRN Nausea Sertraline HCl 50 mg 03/30/20 09:00 04/13/20 09:32 Zoloft PO 50 mg DAILY CHARAN Administration Silver Nitrate 1 applic 04/12/20 12:10 04/13/20 09:34 Silvergel (Elta) 45 Ml TOPICAL 1 applic DAILY CHARAN Administration Tamsulosin HCl 0.4 mg 03/30/20 09:00 04/13/20 09:33 Flomax PO 0.4 mg DAILY CHARAN Administration Ticagrelor 90 mg 03/30/20 09:00 04/13/20 09:33 Brilinta PO 90 mg BID CHARAN Administration Vitamin B Complex 1 cap 03/30/20 09:00 04/13/20 09:34 Vitamin B Complex PO 1 cap DAILY CHARAN Administration Warfarin Sodium 3 mg 03/30/20 17:00 04/12/20 18:02 Coumadin PO 3 mg DAILY@1700 CHARAN Administration Wound Care/Dressing Products 1 each 04/01/20 09:00 04/13/20 09:33 Mepilex Border Sacrum 8.7x9.8 TOPICAL 1 each DAILY CHARAN Administration Radiology Results:
[2020-04-13 14:00] VITALS: BP 91/52; PULSE 77; RESP 20; TEMP 36.1; O2SAT 97
--- NOTE | 2020-04-13 14:19 | PM.IMPN ---
Progress Note: A&P Assessment and Plan (1) Acute exacerbation of congestive heart failure: Code(s): I50.9 - Heart failure, unspecified Status: Acute Assessment and Plan: Patient admitted here on 03/29 for SOB and found to have acute CHF exacerbation with anasarca. Started on IV Lasix with excellent response. He did get metolazone once on 04/06 and again on 04/07 with added effect. Metolazone repeated 04/11. Cumulative fluid output is 37.2L with negative balance of 20.6L. Continue beta-viktoria and as per cardiology changed to metoprolol XL. Has been off THADDEUS-inhibitor due to recent bout of renal failure necessitating round of dialysis and soft BP. If continues to improve and BP better and renal status remains stable, could probably reinstate Thaddeus with close monitoring. Sodium fell to 128 but stable at 131 today. Renal function normal. Changed to oral Lasix today. Continue to monitor. Continue PT/OT. Continue Gutierrez hose. Potassium 40meq x 1. Monitor UOP. WBC elevated due to steroids - WBC about the same today. (2) Coronary artery disease: Qualifiers: Associated angina: without angina Coronary Disease-Associated Artery/Lesion type: [place] artery [place] vs. transplanted heart: [place] heart Qualified Code(s): I25.10 - Atherosclerotic heart disease of [place] coronary artery without angina pectoris Code(s): I25.10 - Atherosclerotic heart disease of [place] coronary artery without angina pectoris Status: Acute Assessment and Plan: Patient with hx of CAD with stents. Troponin mildly elevated secondary to heart failure and not felt to be ischemic in nature. Trop peaked at 0.254. Lexiscan stress test in October 2019 was normal. Continue Brilinta, Lipitor, and Metoprolol. (3) Adrenal insufficiency: Code(s): E27.40 - Unspecified adrenocortical insufficiency Status: Acute Assessment and Plan: Patient recently diagnosed with adrenal insufficiency. Was on Prednisone and Fludrocortisone but the fludrocortisone was stopped due to his anasarca. He continued prednisone but the dose was decreased to 10 mg daily. These changes could be contributing to his hyponatremia although felt this more likely related to the addition of the metolazone. Blood pressure was softer so changed to HC at 10mg in the morning and 5mg in the evening. BP has been more stable overall. Continue to monitor closely. (4) Atrial fibrillation: Code(s): I48.91 - Unspecified atrial fibrillation Status: Acute Assessment and Plan: Intermittent AFib. Noted on EKG and with hx of AFib. Patient rate controlled and INR therapeutic. (5) Chronic anemia: Code(s): D64.9 - Anemia, unspecified Status: Acute Assessment and Plan: Hemoglobin low but stable in the 9-10 range. Unclear on baseline. Hgb listed from the outside hospital was 8 range. Continue to follow. (6) Chronic kidney disease: Code(s): N18.9 - Chronic kidney disease, unspecified Status: Acute Assessment and Plan: Has CKD but eGFR normal here. He did have MARIAN after his left TKA and did receive one round of HD at the outside hospital and required IV fluid. Cr remaining stable and tolerating the diuretics. Continue to monitor closely. 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 INR 2.5 today. Continue to follow. (8) Obstructive sleep apnea on CPAP: Code(s): G47.33 - Obstructive sleep apnea (adult) (pediatric); Z99.89 - Dependence on other enabling machines and devices Status: Acute Assessment and Plan: Stable. Continue CPAP Subjective Date/time seen: 04/13/20 14:19 Interval history: Date of visit 04/13 79yo male with ischemic cardiomyopathy convalescing at local nursing
[2020-04-13] MEDS: POTASSIUM CHLORIDE 20 MEQ TABLET 40 MEQ PO (18:20)
[2020-04-13] MEDS: HYDROCORTISONE 5 MG TABLET PO (18:20)
[2020-04-13] MEDS: WARFARIN (*PBKC) 3 MG TABLET PO (18:21)
[2020-04-13 20:00] VITALS: BP 90/52; PULSE 80; RESP 20; TEMP 36.3; O2SAT 98
[2020-04-13 22:43] VITALS: PULSE 81; RESP 16; O2SAT 98
[2020-04-14] VITALS (8 sets, daily range): BP systolic 83–94; BP diastolic 40–57; PULSE 68–89; RESP 14–20; TEMP 36.4–37; O2SAT 97–99
[2020-04-14 05:49] LABS: Hematocrit 28.1 % (42.0-52.0); Hemoglobin 9.5 g/dL (14.0-18.0); Mean Corpuscular HGB Conc 33.8 g/dl (32-36); Mean Corpuscular Hemoglobin 29.8 pg (26-34); Mean Corpuscular Volume 88.1 fl (80-100); Mean Platelet Volume 9.1 fl (7.4-10.4); Platelet Count Result 170 k/mm3 (150-375); Red Blood Count 3.19 M/mm3 (4.6-6.20); Red Cell Distribution Width 15.1 % (11.5-14.5); White Blood Count 16.6 K/mm3 (4.5-10.0)
[2020-04-14 06:15] LABS: Anion Gap 2 mmol/L (8-16); Blood Urea Nitrogen 30 mg/dL (9-20); Calcium 7.8 mg/dL (8.4-10.2); Carbon Dioxide 35 mmol/L (22-30); Chloride 97 mmol/L (98-107); Estimated CRCL calculation 85 ml/min; Estimated Glomerular Filt Rate > 60; Glucose 94 mg/dL (75-110); Potassium 3.2 mmol/L (3.4-5.0); Sodium 134 mmol/L (137-145)
[2020-04-14] MEDS: ATORVASTATIN 40 MG TABLET 80 MG PO (08:31)
[2020-04-14] MEDS: TAMSULOSIN HCL 0.4 MG CAPSULE PO (08:31)
[2020-04-14] MEDS: TICAGRELOR 90 MG TABLET PO ×2 (08:31→17:17)
[2020-04-14] MEDS: EZETIMIBE 10 MG TABLET PO (08:31)
[2020-04-14] MEDS: ASCORBIC ACID 500 MG TABLET PO (08:31)
[2020-04-14] MEDS: HYDROCORTISONE 10 MG TABLET PO (08:31)
[2020-04-14] MEDS: VITAMIN B COMPLEX CAPSULE 1 CAP PO (08:32)
[2020-04-14] MEDS: FERROUS SULFATE 324 MG TABLET PO (08:32)
[2020-04-14] MEDS: SERTRALINE HCL 50 MG TABLET PO (08:32)
[2020-04-14] MEDS: METOPROLOL SUCCINATE EXT REL 25 MG TABCR PO (08:32)
[2020-04-14] MEDS: SILVERGEL (ELTA) 45 ML 1 APPLIC TOPICAL (08:32)
[2020-04-14] MEDS: POTASSIUM CHLORIDE 20 MEQ TABLET 40 MEQ PO (08:32)
[2020-04-14] MEDS: FUROSEMIDE 40 MG TABLET PO (08:32)
--- NOTE | 2020-04-14 08:50 | PM.PNCARD ---
Progress Note: A&P Additional Plan no additional cardiac recommendations. He seems to be euvolemic. Only issue remaining now appears to be disposition as to whether not he is going to be accepted into rehab because of lower extremity weakness and difficulty ambulating or is he going to be discharged home. Apparently insurance is waiting to make this decision Thien Mederos MD [facility] Subjective Date/time seen: Date of /18/20 08:50 Interval history: Feels well , No CV complaints Discussed disposition . Waiting to hear if accepting on [facility]. will NOT agree to NH transfer patient on oral diuretics and doing well he is in bed with his lower extremities elevated and offers no complaints today. Exam Const: General: comfortable and no acute distress HENMT: Mouth: Yes moist mucous membranes Neck: Neck: supple and no JVD Carotids: normal carotid upstroke Resp: Effort & Inspection: normal respiratory effort Auscultation: clear to auscultation bilaterally Cardio: Rate: regular rate Rhythm: regular rhythm GI: GI Palp: Yes Soft to palpation Auscultation: normal bowel sounds Skin: General skin exam: normal color Neuro: Cognition (Neuro): normal cognition Speech: normal speech Extrem: Other: No significant pitting edema remains Objective Data Vital Signs Vital Signs: Vital Signs - 24 hr 04/13/20 09:33 04/13/20 14:00 04/13/20 20:00 Temperature 36.1 C L 36.3 C L Pulse Rate 81 77 80 Respiratory Rate 20 20 Blood Pressure 91/52 L 90/52 L Pulse Oximetry 97 98 04/13/20 22:43 04/14/20 02:47 04/14/20 06:00 Temperature 36.5 C Pulse Rate 81 74 81 Respiratory Rate 16 18 20 Blood Pressure 93/57 L Pulse Oximetry 98 97 99 04/14/20 08:32 Temperature Pulse Rate 81 Respiratory Rate Blood Pressure Pulse Oximetry Intake/Output Intake/Output: Intake & Output 04/11/20 04/12/20 04/13/20 04/14/20 23:59 23:59 23:59 23:59 Intake Total 1140 1150 1070 240 Output Total 1350 3815 950 Balance -210 -1325 120 240 Meds/Results Medications: Active Medications Generic Name Dose Route Start Last Admin Trade Name Freq PRN Reason Stop Dose Admin Ascorbic Acid 500 mg 03/30/20 09:00 04/14/20 08:31 Vitamin C PO 04/29/20 09:01 500 mg DAILY CHARAN Administration Atorvastatin Calcium 80 mg 03/30/20 09:00 04/14/20 08:31 Lipitor PO 80 mg DAILY CHARAN Administration Ezetimibe 10 mg 03/30/20 09:00 04/14/20 08:31 Zetia PO 10 mg DAILY CHARAN Administration Ferrous Sulfate 324 mg 03/30/20 08:00 04/14/20 08:32 Ferrous Sulfate PO 324 mg DAILY@0800 CHARAN Administration Furosemide 40 mg 04/13/20 09:00 04/14/20 08:32 Furosemide 40 Mg Tablet PO 40 mg BID CHARAN Administration Hydrocortisone 10 mg 04/11/20 08:00 04/14/20 08:31 Hydrocortisone 10 Mg Tablet PO 10 mg DAILY@0800 [facility] Administration Hydrocortisone 5 mg 04/10/20 18:00 04/13/20 18:20 Hydrocortisone 5 Mg Tablet PO 5 mg DAILY@1800 [facility] Administration Metoprolol Succinate 25 mg 04/06/20 09:00 04/14/20 08:32 Metoprolol Succinate Ext Rel 25 Mg Tabcr PO 25 mg QAM [facility] Administration Miconazole Nitrate 1 applic 03/30/20 21:00 04/14/20 08:32 Aloe [place] TOPICAL 1 applic Q12HR [facility] Administration Ondansetron HCl 4 mg 03/29/20 23:09 Zofran Odt PO Q6H PRN Nausea Potassium Chloride 20 meq 04/15/20 08:00 Potassium Chloride 20 Meq Tablet.Er PO DAILY@0800 [facility] Sertraline HCl 50 mg 03/30/20 09:00 04/14/20 08:32 Zoloft PO 50 mg DAILY [facility] Administration Silver Nitrate 1 applic 04/12/20 12:10 04/14/20 08:32 Silvergel (Elta) 45 Ml TOPICAL 1 applic DAILY [facility] Administration Tamsulosin HCl 0.4 mg 03/30/20 09:00 04/14/20 08:31 Flomax PO 0.4 mg DAILY [facility] Administration Ticagrelor 90 mg 03/30/20 09:00 04/14/20 08:31 Brilinta PO 90 mg BID [facility] Administration Vitamin B Complex 1 cap 03/30/20 09:00
--- NOTE | 2020-04-14 16:07 | PM.IMPN ---
Progress Note: A&P Assessment and Plan (1) Acute exacerbation of congestive heart failure: Qualifiers: Heart failure type: diastolic Qualified Code(s): I50.33 - Acute on chronic diastolic (congestive) heart failure Code(s): I50.9 - Heart failure, unspecified Status: Acute Assessment and Plan: Patient admitted here on 03/29 for SOB and found to have acute CHF exacerbation with anasarca. Started on IV Lasix with excellent response. Old records showing Echo with EF 68% and Grade II diastolic dysfunction. He did get metolazone once on 04/06 and again on 04/07 with added effect. Metolazone repeated 04/11. Cumulative fluid output is 37.4L with negative balance of 19.7L. Continue beta-viktoria and as per cardiology changed to metoprolol XL. Has been off THADDEUS-inhibitor due to recent bout of renal failure necessitating round of dialysis and soft BP. If continues to improve and BP better and renal status remains stable, could probably reinstate Thaddeus with close monitoring. Sodium fell to 128 but stable at 134 today. Renal function normal. Changed to oral Lasix on 04/13. Had brief syncopal episode related to HoTN. Will hold lasix and place parameters on the Metoprolol. Resume Lasix as BP allows. May need to decrease dose. WBC was elevated due to steroids but still remains elevated at 16K. Etiology unclear but no evidence of infectious process. No fevers. Doubt brief episode of HoTN related to infectious process. Continue to monitor. (2) Coronary artery disease: Qualifiers: Associated angina: without angina Coronary Disease-Associated Artery/Lesion type: [place] artery [place] vs. transplanted heart: [place] heart Qualified Code(s): I25.10 - Atherosclerotic heart disease of [place] coronary artery without angina pectoris Code(s): I25.10 - Atherosclerotic heart disease of [place] coronary artery without angina pectoris Status: Acute Assessment and Plan: Patient with hx of CAD with stents. Troponin mildly elevated secondary to heart failure and not felt to be ischemic in nature. Trop peaked at 0.254. Lexiscan stress test in October 2019 was normal. Continue Brilinta, Lipitor, and Metoprolol. (3) Adrenal insufficiency: Code(s): E27.40 - Unspecified adrenocortical insufficiency Status: Acute Assessment and Plan: Patient recently diagnosed with adrenal insufficiency. Was on Prednisone and Fludrocortisone but the fludrocortisone was stopped due to his anasarca. He continued prednisone but the dose was decreased to 10 mg daily. These changes could be contributing to his hyponatremia although felt this more likely related to the addition of the metolazone. Blood pressure was softer so changed to HC at 10mg in the morning and 5mg in the evening. As above. Continue to monitor closely. (4) Atrial fibrillation: Code(s): I48.91 - Unspecified atrial fibrillation Status: Acute Assessment and Plan: Intermittent AFib. Noted on EKG and with hx of AFib. Patient rate controlled and INR therapeutic. (5) Chronic anemia: Code(s): D64.9 - Anemia, unspecified Status: Acute Assessment and Plan: Hemoglobin low but stable in the 9-10 range. Unclear on baseline. Hgb listed from the outside hospital was 8 range. Continue to follow. (6) Chronic kidney disease: Code(s): N18.9 - Chronic kidney disease, unspecified Status: Acute Assessment and Plan: Has CKD but eGFR normal here. He did have MARIAN after his left TKA and did receive one round of HD at the outside hospital and required IV fluid. Cr remaining stable and tolerating the diuretics. Continue to monitor closely. 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 INR 2.5 yesterday.
[2020-04-14] MEDS: WARFARIN (*PBKC) 3 MG TABLET PO (17:17)
[2020-04-14] MEDS: HYDROCORTISONE 5 MG TABLET PO (17:17)
[2020-04-15 05:59] LABS: Basophils Percent Auto 0.2 % (0.2-1.2); Eosinophils Percent Auto 0.2 % (0-4.4); Hematocrit 29.4 % (42.0-52.0); Hemoglobin 9.4 g/dL (14.0-18.0); Immature Granulocyte Absolute 0.82 K/mm3 (0.00-0.031); Lymphocytes Absolute Auto 1.71 K/mm3 (0.9-3.2); Lymphocytes Percent Auto 8.4 % (18.3-44.2); Mean Corpuscular Hemoglobin 29.3 pg (26-34); Mean Corpuscular Volume 91.6 fl (80-100); Mean Platelet Volume 9.3 fl (7.4-10.4); Monocytes Absolute Auto 1.8 K/mm3 (0.1-0.6); Monocytes Percent Auto 8.9 % (2.6-8.5); Neutrophils Percent Auto 78.3 % (45.5-73.1); Platelet Count Result 191 k/mm3 (150-375); Red Blood Count 3.21 M/mm3 (4.6-6.20); Red Cell Distribution Width 15.4 % (11.5-14.5); White Blood Count 20.4 K/mm3 (4.5-10.0)
[2020-04-15 06:00] VITALS: BP 95/55; PULSE 75; RESP 16; TEMP 36.1; O2SAT 99
[2020-04-15 06:08] LABS: Anion Gap -1 mmol/L (8-16); Blood Urea Nitrogen 31 mg/dL (9-20); Carbon Dioxide 38 mmol/L (22-30); Chloride 96 mmol/L (98-107); Estimated CRCL calculation 94 ml/min; Estimated Glomerular Filt Rate > 60; Glucose 93 mg/dL (75-110); INR 2.8; Potassium 3.6 mmol/L (3.4-5.0); Prothrombin Time 28.7 Seconds (11.1-14.7); Sodium 133 mmol/L (137-145)
[2020-04-15] MEDS: TAMSULOSIN HCL 0.4 MG CAPSULE PO (08:32)
[2020-04-15 08:33] VITALS: PULSE 75
[2020-04-15] MEDS: ASCORBIC ACID 500 MG TABLET PO (08:33)
[2020-04-15] MEDS: SERTRALINE HCL 50 MG TABLET PO (08:33)
[2020-04-15] MEDS: EZETIMIBE 10 MG TABLET PO (08:33)
[2020-04-15] MEDS: FERROUS SULFATE 324 MG TABLET PO (08:33)
[2020-04-15] MEDS: TICAGRELOR 90 MG TABLET PO ×2 (08:33→16:24)
[2020-04-15] MEDS: ATORVASTATIN 40 MG TABLET 80 MG PO (08:33)
[2020-04-15] MEDS: METOPROLOL SUCCINATE EXT REL 25 MG TABCR PO (08:33)
[2020-04-15] MEDS: SILVERGEL (ELTA) 45 ML 1 APPLIC TOPICAL (08:33)
[2020-04-15] MEDS: HYDROCORTISONE 10 MG TABLET PO (08:33)
[2020-04-15] MEDS: VITAMIN B COMPLEX CAPSULE 1 CAP PO (08:33)
--- NOTE | 2020-04-15 10:38 | PCPTNOTE ---
Patient states he did not want to go to the chair after 3 sit to stands in [employer]. Patient states he is tired and refused to do more exercises after attempting sit to stands. Patient required encouragement throughout session to complete exercises. Rest breaks required between sit to stands in [employer] due to level of fatigue and feeling light headed.
--- NOTE | 2020-04-15 11:32 | PM.PNCARD ---
Progress Note: A&P Assessment and Plan (1) Anasarca: Code(s): R60.1 - Generalized edema Status: Acute Assessment and Plan: Long-standing ischemic heart disease presenting with volume overload. Cumulative negative balance of over 20 L Furosemide now PO. Euvolemic. Continue to monitor renal function and electrolytes (2) Acute exacerbation of congestive heart failure: Qualifiers: Heart failure type: diastolic Qualified Code(s): I50.33 - Acute on chronic diastolic (congestive) heart failure Code(s): I50.9 - Heart failure, unspecified Status: Acute Assessment and Plan: Ischemic cardiomyopathy as above. ICD. Previously on Entresto. Would resume if BP and renal function permit. Continue Metoprolol succinate. BP soft at times (3) Coronary artery disease: Qualifiers: Coronary Disease-Associated Artery/Lesion type: [place] artery [place] vs. 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 INR 2.9 04/15/2020. Continue current dose of warfarin. Continue to monitor INR. Additional Plan Awaiting placement. Plan discussed with Dr Mederos [id number] 04/15/2020 Subjective Date/time seen: 04/15/20 11:32 Interval history: Follow-up for: shortness of breath / volume overload. Underlying ischemic heart disease. Date of service: 04/15/2020 Subjective:Up in chair. Legs elevated. Denies chest pain. Slight shortness of breath with exertion. Lightheaded if gets up too fast. No palpitations. Review of Systems Constitutional: Constitutional: Denies chills and Reports weakness Eyes: Eyes: Denies blurry vision ENT: Reports hearing loss, Denies throat swelling and Denies tongue swelling Cardiovascular: Cardiovascular: Denies chest pain, Denies rapid heart rate, Reports edema (almost competely gone), Reports dyspnea on exertion, Denies orthopnea and Denies paroxysmal nocturnal dyspnea Respiratory: Respiratory: Reports dyspnea on exertion and Denies wheezing Gastrointestinal: Gastrointestinal: Denies abdominal pain, Denies bloating, Denies constipation and Denies heartburn Genitourinary: Genitourinary: Denies hematuria Musculoskeletal: Musculoskeletal: Denies back pain and Reports arthralgias ( left knee postop) Integumentary/Breasts: Skin/Breast: Denies erythema and Denies rash Neurologic: Reports weakness Psychiatric: Psychiatric: Denies anxiety and Denies depression Hematologic/Lymphatic: Hematologic/Lymphatic: Denies easy bleeding and Denies easy bruising Allergic/Immunologic: Allergic/Immunologic: Denies throat swelling, Denies tongue swelling and Denies wheezing Exam Const: General: comfortable and no acute distress Other: Obese white male comfortable up in chair. Legs elevated No chest discomfort. HENMT: Mouth: Yes moist mucous membranes Eyes: Sclera: sclerae normal Pupils: Equal, round and reactive pupils present Neck: Neck: normal visual inspection and supple Resp: Effort & Inspection: normal respiratory effort and able to speak in complete sentences Auscultation: clear to auscultation bilaterally Cardio: Rate: regular rate Rhythm: abnormal rhythm irregularly irregular GI: Inspection: obesity Auscultation: normal bowel sounds Skin: General skin exam: normal color Lesions: no lesions Rashes: no rashes Neuro: Cranial nerves: Ye
[2020-04-15 14:00] VITALS: BP 107/55; PULSE 85; RESP 15; TEMP 36.3; O2SAT 98
[2020-04-15 14:59] LABS: Add Urine Microscopic? YES; Appearance Urine Cloudy (Clear); Bacteria Urine 1+ /hpf; Bilirubin Urine Negative (Negative); Color Urine Yellow (Yellow); Glucose Urine UA Negative (Negative); Ketones Urine Negative (Negative); Leukocyte Esterase Ur 3+ LEU/UL (Negative); Mucus Urine Few /lpf; Nitrate Urine Negative (Negative); Protein Urine 3+ mg/dL (Negative); RBC Urine 21-50 /hpf (0-2); Specific Grav Ur 1.019 (1.001-1.035); Urobilinogen Urine Negative mg/dL (<2.0); WBC Urine >75 /hpf
[2020-04-15 15:07] LABS: Blood Urine Negative (Negative)
--- NOTE | 2020-04-15 16:16 | PM.IMPN ---
Progress Note: A&P Assessment and Plan (1) Acute exacerbation of congestive heart failure: Qualifiers: Heart failure type: diastolic Qualified Code(s): I50.33 - Acute on chronic diastolic (congestive) heart failure Code(s): I50.9 - Heart failure, unspecified Status: Acute Assessment and Plan: Patient admitted here on 03/29 for SOB and found to have acute CHF exacerbation with anasarca. Started on IV Lasix with excellent response. Old records showing Echo with EF 68% and Grade II diastolic dysfunction. He did get metolazone once on 04/06 and again on 04/07 with added effect. Metolazone repeated 04/11. Cumulative fluid output is 38.4L with negative balance of 19L. Continue beta-viktoria and as per cardiology changed to metoprolol XL with parameters. Has been off THADDEUS-inhibitor due to recent bout of renal failure necessitating round of dialysis and soft BP. If continues to improve and BP better and renal status remains stable, could probably reinstate Thaddeus with close monitoring. Sodium fell to 128 but stable at 133 today. Renal function normal. Changed to oral Lasix on 04/13 but patient had a very brief syncopal episode related to HoTN on 04/14 so we have held Lasix. Plan to resume Lasix tomorrow. May need to lower dose. (2) Leukocytosis: Code(s): D72.829 - Elevated white blood cell count, unspecified Status: Acute Assessment and Plan: WBC was elevated on admission to 15.3K. WBC remained elevated throughout his hospital course without clear source of infection. It was felt that thiw may be related to steroids. WBC today is 20K so CXR and UA ordered. UA showing 3+ LE, 21-50R and >75W. No fevers. Doubt brief episode of HoTN related to infectious process. Start Rocephin awaiting culture results. Still waiting for insurance authorization for [facility]. Okay to move to [facility] if accepted and can follow up on culture after transfer. (3) Coronary artery disease: Qualifiers: Associated angina: without angina Coronary Disease-Associated Artery/Lesion type: [place] artery [place] vs. transplanted heart: [place] heart Qualified Code(s): I25.10 - Atherosclerotic heart disease of [place] coronary artery without angina pectoris Code(s): I25.10 - Atherosclerotic heart disease of [place] coronary artery without angina pectoris Status: Acute Assessment and Plan: Patient with hx of CAD with stents. Troponin mildly elevated secondary to heart failure and not felt to be ischemic in nature. Trop peaked at 0.254. Lexiscan stress test in October 2019 was normal. Continue Brilinta, Lipitor, and Metoprolol. (4) Adrenal insufficiency: Code(s): E27.40 - Unspecified adrenocortical insufficiency Status: Acute Assessment and Plan: Patient recently diagnosed with adrenal insufficiency. Was on Prednisone and Fludrocortisone but the fludrocortisone was stopped due to his anasarca. He continued prednisone but the dose was decreased to 10 mg daily. These changes could be contributing to his hyponatremia although felt this more likely related to the addition of the metolazone. Blood pressure was softer so changed to HC at 10mg in the morning and 5mg in the evening. BP still soft at times but felt related to the Lasix. Continue to monitor closely. May need higher dose of the HC. (5) Atrial fibrillation: Code(s): I48.91 - Unspecified atrial fibrillation Status: Acute Assessment and Plan: Intermittent AFib. Noted on EKG and with hx of AFib. Patient rate controlled and INR therapeutic. (6) Chronic anemia: Code(s): D64.9 - Anemia, unspecified Status: Acute Assessment and Plan: Hemoglobin low but stable in the 9-10 range. Unclear on baseline. Hgb listed from the outside hospital was 8 range. Continue to follow. (7) Chronic kidney disease: Code(s): N18.9 - Chronic kidney disease, unspecified Status: Acut
[2020-04-15] MEDS: WARFARIN (*PBKC) 3 MG TABLET PO (16:24)
[2020-04-15] MEDS: HYDROCORTISONE 5 MG TABLET PO (17:00)
[2020-04-15 21:25] VITALS: BP 95/45; PULSE 72; RESP 16; TEMP 36.4; O2SAT 98
[2020-04-15 21:52] VITALS: PULSE 79; RESP 16; O2SAT 98
[2020-04-16 02:37] VITALS: PULSE 71; RESP 14; O2SAT 98
[2020-04-16 05:11] LABS: Hemoglobin 9.2 g/dL (14.0-18.0); Mean Corpuscular HGB Conc 32.9 g/dl (32-36); Mean Corpuscular Volume 91.2 fl (80-100); Mean Platelet Volume 9.4 fl (7.4-10.4); Platelet Count Result 182 k/mm3 (150-375); Red Blood Count 3.07 M/mm3 (4.6-6.20); Red Cell Distribution Width 15.6 % (11.5-14.5); White Blood Count 20.8 K/mm3 (4.5-10.0)
[2020-04-16 05:15] LABS: Prothrombin Time 30.9 Seconds (11.1-14.7)
[2020-04-16 05:20] LABS: Anion Gap 2 mmol/L (8-16); Blood Urea Nitrogen 31 mg/dL (9-20); Carbon Dioxide 36 mmol/L (22-30); Chloride 96 mmol/L (98-107); Estimated CRCL calculation 94 ml/min; Estimated Glomerular Filt Rate > 60; Glucose 97 mg/dL (75-110); Potassium 3.8 mmol/L (3.4-5.0); Sodium 134 mmol/L (137-145)
[2020-04-16 05:51] VITALS: BP 90/47; PULSE 71; RESP 16; TEMP 36.6; O2SAT 93
[2020-04-16 08:28] VITALS: PULSE 71
[2020-04-16] MEDS: SERTRALINE HCL 50 MG TABLET PO (08:28)
[2020-04-16] MEDS: METOPROLOL SUCCINATE EXT REL 25 MG TABCR PO (08:28)
[2020-04-16] MEDS: EZETIMIBE 10 MG TABLET PO (08:28)
[2020-04-16] MEDS: ASCORBIC ACID 500 MG TABLET PO (08:28)
[2020-04-16] MEDS: VITAMIN B COMPLEX CAPSULE 1 CAP PO (08:28)
[2020-04-16] MEDS: ATORVASTATIN 40 MG TABLET 80 MG PO (08:29)
[2020-04-16] MEDS: SILVERGEL (ELTA) 45 ML 1 APPLIC TOPICAL (08:29)
[2020-04-16] MEDS: FERROUS SULFATE 324 MG TABLET PO (08:29)
[2020-04-16] MEDS: TICAGRELOR 90 MG TABLET PO ×2 (08:29→17:24)
[2020-04-16] MEDS: HYDROCORTISONE 10 MG TABLET PO (08:29)
[2020-04-16] MEDS: TAMSULOSIN HCL 0.4 MG CAPSULE PO (08:29)
[2020-04-16] MEDS: metOLazone 2.5 MG TABLET PO (10:31)
[2020-04-16 14:00] VITALS: BP 92/56; PULSE 83; RESP 14; TEMP 36.6; O2SAT 99
--- NOTE | 2020-04-16 14:25 | PM.IMPN ---
Progress Note: A&P Assessment and Plan (1) Acute exacerbation of congestive heart failure: Qualifiers: Heart failure type: diastolic Qualified Code(s): I50.33 - Acute on chronic diastolic (congestive) heart failure Code(s): I50.9 - Heart failure, unspecified Status: Acute Assessment and Plan: Patient admitted here on 03/29 for SOB and found to have acute CHF exacerbation with anasarca. Started on IV Lasix with excellent response. Old records showing Echo with EF 68% and Grade II diastolic dysfunction. He did get metolazone once on 04/06 and again on 04/07 with added effect. Metolazone repeated 04/11 and today 04/16 . Cumulative fluid output is over 18 liters. Continue beta-viktoria and as per cardiology changed to metoprolol XL. Has been off THADDEUS-inhibitor due to recent bout of renal failure necessitating round of dialysis and soft BP. If continues to improve and BP better and renal status remains stable, could probably reinstate Thaddeus with close monitoring. Sodium fell to 128 but stable at 134 again today. Renal function normal. Changed to oral Lasix on 04/13. Had brief syncopal episode related to HoTN. . May need to decrease dose of lasix resumed oral dose today since no positive output last 2 days WBC was elevated due to steroids but still remains elevated . Etiology unclear but no evidence of infectious process. No fevers. Doubt brief episode of HoTN related to infectious process. Continue to monitor. (2) Coronary artery disease: Qualifiers: Coronary Disease-Associated Artery/Lesion type: [place] artery [place] vs. transplanted heart: [place] heart Associated angina: without angina Qualified Code(s): I25.10 - Atherosclerotic heart disease of [place] coronary artery without angina pectoris Code(s): I25.10 - Atherosclerotic heart disease of [place] coronary artery without angina pectoris Status: Acute Assessment and Plan: Patient with hx of CAD with stents. Troponin mildly elevated secondary to heart failure and not felt to be ischemic in nature. Trop peaked at 0.254. Lexiscan stress test in October 2019 was normal. Continue Brilinta, Lipitor, and Metoprolol. (3) Adrenal insufficiency: Code(s): E27.40 - Unspecified adrenocortical insufficiency Status: Acute Assessment and Plan: Patient recently diagnosed with adrenal insufficiency. Was on Prednisone and Fludrocortisone but the fludrocortisone was stopped due to his anasarca. He continued prednisone but the dose was decreased to 10 mg daily. These changes could be contributing to his hyponatremia although felt this more likely related to the addition of the metolazone. Blood pressure was softer so changed to HC at 10mg in the morning and 5mg in the evening. As above. Continue to monitor closely. (4) Atrial fibrillation: Code(s): I48.91 - Unspecified atrial fibrillation Status: Acute Assessment and Plan: Intermittent AFib. Noted on EKG and with hx of AFib. Patient rate controlled and INR therapeutic. (5) Chronic anemia: Code(s): D64.9 - Anemia, unspecified Status: Acute Assessment and Plan: Hemoglobin low but stable in the 9-10 range. Unclear on baseline. Hgb listed from the outside hospital was 8 range. Continue to follow. (6) Chronic kidney disease: Code(s): N18.9 - Chronic kidney disease, unspecified Status: Acute Assessment and Plan: Has CKD but eGFR normal here. He did have MARIAN after his left TKA and did receive one round of HD at the outside hospital and required IV fluid. Cr remaining stable and tolerating the diuretics. Continue to monitor closely. 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 INR 3.0 today. Continue to follow.
[2020-04-16] MEDS: HYDROCORTISONE 5 MG TABLET PO (17:24)
[2020-04-16] MEDS: WARFARIN (*PBKC) 3 MG TABLET PO (17:25)
[2020-04-16] MEDS: FUROSEMIDE 40 MG TABLET PO (18:07)
[2020-04-16 21:46] VITALS: BP 96/47; PULSE 90; RESP 16; TEMP 36.3; O2SAT 97
[2020-04-16 22:15] VITALS: PULSE 76; RESP 16; O2SAT 97
[2020-04-17 02:30] VITALS: PULSE 77; RESP 18; O2SAT 96
[2020-04-17 05:27] VITALS: BP 92/50; PULSE 77; RESP 16; TEMP 36.2; O2SAT 96
[2020-04-17 08:03] LABS: Anion Gap 1 mmol/L (8-16); Blood Urea Nitrogen 29 mg/dL (9-20); Calcium 7.8 mg/dL (8.4-10.2); Carbon Dioxide 35 mmol/L (22-30); Chloride 96 mmol/L (98-107); Estimated CRCL calculation 94 ml/min; Estimated Glomerular Filt Rate > 60; Glucose 88 mg/dL (75-110); Potassium 3.3 mmol/L (3.4-5.0); Sodium 132 mmol/L (137-145)
[2020-04-17 09:33] VITALS: PULSE 84
[2020-04-17] MEDS: TAMSULOSIN HCL 0.4 MG CAPSULE PO (09:33)
[2020-04-17] MEDS: POTASSIUM CHLORIDE 20 MEQ TABLET PO (09:33)
[2020-04-17] MEDS: VITAMIN B COMPLEX CAPSULE 1 CAP PO (09:33)
[2020-04-17] MEDS: TICAGRELOR 90 MG TABLET PO ×2 (09:33→18:12)
[2020-04-17] MEDS: EZETIMIBE 10 MG TABLET PO (09:33)
[2020-04-17] MEDS: METOPROLOL SUCCINATE EXT REL 25 MG TABCR PO (09:33)
[2020-04-17] MEDS: FUROSEMIDE 40 MG TABLET PO (09:33)
[2020-04-17] MEDS: ASCORBIC ACID 500 MG TABLET PO (09:33)
[2020-04-17] MEDS: HYDROCORTISONE 10 MG TABLET PO (09:34)
[2020-04-17] MEDS: ATORVASTATIN 40 MG TABLET 80 MG PO (09:34)
[2020-04-17] MEDS: SERTRALINE HCL 50 MG TABLET PO (09:34)
[2020-04-17] MEDS: FERROUS SULFATE 324 MG TABLET PO (09:34)
[2020-04-17] MEDS: SILVERGEL (ELTA) 45 ML 1 APPLIC TOPICAL (09:35)
[2020-04-17 14:00] VITALS: BP 94/45; PULSE 80; RESP 18; TEMP 36.1; O2SAT 98
--- NOTE | 2020-04-17 16:13 | PM.IMPN ---
Progress Note: A&P Assessment and Plan (1) Acute exacerbation of congestive heart failure: Qualifiers: Heart failure type: diastolic Qualified Code(s): I50.33 - Acute on chronic diastolic (congestive) heart failure Code(s): I50.9 - Heart failure, unspecified Status: Acute Assessment and Plan: Patient admitted here on 03/29 for SOB and found to have acute CHF exacerbation with anasarca. Started on IV Lasix with excellent response. Old records showing Echo with EF 68% and Grade II diastolic dysfunction. He did get metolazone once on 04/06 and again on 04/07 with added effect. Metolazone repeated 04/11 and today 04/16 . Cumulative fluid output is over 18 liters. Continue beta-viktoria and as per cardiology changed to metoprolol XL. Has been off THADDEUS-inhibitor due to recent bout of renal failure necessitating round of dialysis and soft BP. If continues to improve and BP better and renal status remains stable, could probably reinstate Thaddeus with close monitoring. Sodium fell to 128 but stable at 134 again today. Renal function normal. Changed to oral Lasix on 04/13. Had brief syncopal episode related to HoTN. . decrease Lasix to q.day WBC was elevated due to steroids but still remains elevated . . Doubt brief episode of HoTN related to infectious process. Continue to monitor. (2) Coronary artery disease: Qualifiers: Coronary Disease-Associated Artery/Lesion type: [place] artery [place] vs. transplanted heart: [place] heart Associated angina: without angina Qualified Code(s): I25.10 - Atherosclerotic heart disease of [place] coronary artery without angina pectoris Code(s): I25.10 - Atherosclerotic heart disease of [place] coronary artery without angina pectoris Status: Acute Assessment and Plan: Patient with hx of CAD with stents. Troponin mildly elevated secondary to heart failure and not felt to be ischemic in nature. Trop peaked at 0.254. Lexiscan stress test in October 2019 was normal. Continue Brilinta, Lipitor, and Metoprolol. (3) Adrenal insufficiency: Code(s): E27.40 - Unspecified adrenocortical insufficiency Status: Acute Assessment and Plan: Patient recently diagnosed with adrenal insufficiency. Was on Prednisone and Fludrocortisone but the fludrocortisone was stopped due to his anasarca. He continued prednisone but the dose was decreased to 10 mg daily. These changes could be contributing to his hyponatremia although felt this more likely related to the addition of the metolazone. Blood pressure was softer so changed to HC at 10mg in the morning and 5mg in the evening. As above. Continue to monitor closely. (4) Atrial fibrillation: Code(s): I48.91 - Unspecified atrial fibrillation Status: Acute Assessment and Plan: Intermittent AFib. Noted on EKG and with hx of AFib. Patient rate controlled and INR therapeutic. (5) Chronic anemia: Code(s): D64.9 - Anemia, unspecified Status: Acute Assessment and Plan: Hemoglobin low but stable in the 9-10 range. Unclear on baseline. Hgb listed from the outside hospital was 8 range. Continue to follow. (6) Chronic kidney disease: Code(s): N18.9 - Chronic kidney disease, unspecified Status: Acute Assessment and Plan: Has CKD but eGFR normal here. He did have MARIAN after his left TKA and did receive one round of HD at the outside hospital and required IV fluid. Cr remaining stable and tolerating the diuretics. 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 check INR with cipro rx Continue to follow. (8) Obstructive sleep apnea on CPAP: Code(s): G47.33 - Obstructive sleep apnea (adult) (pediatric); Z99.89 - Dependence on ot
[2020-04-17] MEDS: HYDROCORTISONE 5 MG TABLET PO (18:12)
[2020-04-17] MEDS: WARFARIN (*PBKC) 3 MG TABLET PO (18:12)
[2020-04-17 20:00] VITALS: BP 102/50; PULSE 82; RESP 20; TEMP 36.5; O2SAT 98
[2020-04-17] MEDS: CIPROFLOXACIN 500 MG TAB PO (21:09)
[2020-04-17 22:10] VITALS: PULSE 92; RESP 19; O2SAT 95
[2020-04-18 02:26] VITALS: PULSE 86; RESP 14; O2SAT 95
[2020-04-18 04:00] VITALS: BP 94/51; PULSE 84; RESP 20; TEMP 36.5; O2SAT 97
[2020-04-18 05:46] LABS: INR 2.8; Prothrombin Time 29.2 Seconds (11.1-14.7)
[2020-04-18 05:48] LABS: Anion Gap 3 mmol/L (8-16); Blood Urea Nitrogen 31 mg/dL (9-20); Calcium 7.8 mg/dL (8.4-10.2); Carbon Dioxide 36 mmol/L (22-30); Chloride 96 mmol/L (98-107); Estimated CRCL calculation 94 ml/min; Estimated Glomerular Filt Rate > 60; Glucose 96 mg/dL (75-110); Potassium 3.5 mmol/L (3.4-5.0); Sodium 135 mmol/L (137-145)
[2020-04-18 09:26] VITALS: PULSE 84
[2020-04-18] MEDS: EZETIMIBE 10 MG TABLET PO (09:26)
[2020-04-18] MEDS: FUROSEMIDE 40 MG TABLET PO (09:26)
[2020-04-18] MEDS: METOPROLOL SUCCINATE EXT REL 25 MG TABCR PO (09:26)
[2020-04-18] MEDS: ATORVASTATIN 40 MG TABLET 80 MG PO (09:26)
[2020-04-18] MEDS: FERROUS SULFATE 324 MG TABLET PO (09:26)
[2020-04-18] MEDS: TICAGRELOR 90 MG TABLET PO ×2 (09:26→16:25)
[2020-04-18] MEDS: TAMSULOSIN HCL 0.4 MG CAPSULE PO (09:26)
[2020-04-18] MEDS: ASCORBIC ACID 500 MG TABLET PO (09:26)
[2020-04-18] MEDS: CIPROFLOXACIN 500 MG TAB PO ×2 (09:26→16:25)
[2020-04-18] MEDS: SERTRALINE HCL 50 MG TABLET PO (09:26)
[2020-04-18] MEDS: POTASSIUM CHLORIDE 20 MEQ TABLET.ER PO (09:26)
[2020-04-18] MEDS: SILVERGEL (ELTA) 45 ML 1 APPLIC TOPICAL (09:27)
[2020-04-18] MEDS: HYDROCORTISONE 10 MG TABLET PO (09:27)
[2020-04-18] MEDS: VITAMIN B COMPLEX CAPSULE 1 CAP PO (09:27)
[2020-04-18 12:48] LABS: SARS-CoV-2 RNA PCR Negative
[2020-04-18 14:00] VITALS: BP 96/52; PULSE 83; RESP 14; TEMP 36.8; O2SAT 97
--- NOTE | 2020-04-18 14:25 | PCPTNOTE ---
Patient refused treatment this session due to anticipated discharge.
[2020-04-18] MEDS: HYDROCORTISONE 5 MG TABLET PO (16:25)
[2020-04-18] MEDS: WARFARIN (*PBKC) 3 MG TABLET PO (16:25)
--- NOTE | 2020-04-19 17:50 | PM.DS ---
DS: Admitting Diagnosis Admitting Diagnosis Admitting Diagnosis: CHF Exacerbation, Pneumonia DS: Discharge Diagnosis Discharge Diagnosis (1) Acute exacerbation of congestive heart failure: Qualifiers: Heart failure type: diastolic Qualified Code(s): I50.33 - Acute on chronic diastolic (congestive) heart failure Code(s): I50.9 - Heart failure, unspecified Status: Acute Assessment and Plan: Patient admitted here on 03/29 for SOB and found to have acute CHF exacerbation with anasarca. Started on IV Lasix with excellent response. Old records showing Echo with EF 68% and Grade II diastolic dysfunction. He did get metolazone once on 04/06 and again on 04/07 with added effect. Metolazone repeated 04/11 and today 04/16 . Cumulative fluid output is over 18 liters. Continue beta-viktoria and as per cardiology changed to metoprolol XL. Has been off THADDEUS-inhibitor due to recent bout of renal failure necessitating round of dialysis and soft BP. If continues to improve and BP better and renal status remains stable, could probably reinstate Thaddeus with close monitoring. Sodium fell to 128 but stable at 135 again today. Renal function normal. Changed to oral Lasix on 04/13. Had brief syncopal episode related to HoTN. . decrease Lasix to q.day 60 mg at d/c (2) Coronary artery disease: Qualifiers: Coronary Disease-Associated Artery/Lesion type: [place] artery [place] vs. transplanted heart: [place] heart Associated angina: without angina Qualified Code(s): I25.10 - Atherosclerotic heart disease of [place] coronary artery without angina pectoris Code(s): I25.10 - Atherosclerotic heart disease of [place] coronary artery without angina pectoris Status: Acute Assessment and Plan: Patient with hx of CAD with stents. Troponin mildly elevated secondary to heart failure and not felt to be ischemic in nature. Trop peaked at 0.254. Lexiscan stress test in October 2019 was normal. Continue Brilinta, Lipitor, and Metoprolol. (3) Adrenal insufficiency: Code(s): E27.40 - Unspecified adrenocortical insufficiency Status: Acute Assessment and Plan: Patient recently diagnosed with adrenal insufficiency. Was on Prednisone and Fludrocortisone but the fludrocortisone was stopped due to his anasarca. He continued prednisone but the dose was decreased to 10 mg daily. These changes could be contributing to his hyponatremia although felt this more likely related to the addition of the metolazone. Blood pressure was softer so changed to HC at 15mg in the morning and 5mg in the evening. . (4) Atrial fibrillation: Code(s): I48.91 - Unspecified atrial fibrillation Status: Acute Assessment and Plan: Intermittent AFib. Noted on EKG and with hx of AFib. Patient rate controlled and INR therapeutic. (5) Chronic anemia: Code(s): D64.9 - Anemia, unspecified Status: Acute Assessment and Plan: Hemoglobin low but stable in the 9-10 range. Unclear on baseline. Hgb listed from the outside hospital was 8 range. Continue to follow. (6) Chronic kidney disease: Code(s): N18.9 - Chronic kidney disease, unspecified Status: Acute Assessment and Plan: Has CKD but eGFR normal here. He did have MARIAN after his left TKA and did receive one round of HD at the outside hospital and required IV fluid. Cr remaining stable and tolerating the diuretics. 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 check INR with cipro rx next week and cipro decreased to 2 mg qd while on cipro (8) Obstructive sleep apnea on CPAP: Code(s): G47.33 - Obstructive sleep apnea (adult) (pediatric); Z99.89 - Dependence on other enabling machines and de
== END 2020-04-18 16:15 | disposition home health service (06) | DRG 292 ==
LOC: ANHED 12:02 → ANHICU 21:30 → ANH2MED 03-30 18:55 → ANHICU 04-19 12:01
PROVIDERS: Internal Medicine; Physician Assistant; Student in an Organized Health Care Education/Training Program; Admitting Provider Family Medicine; Emergency Provider Emergency Medicine; Visit Provider Internal Medicine
DX: I50.33 Acute on chronic diastolic (congestive) heart failure (principal); E27.40 Unspecified adrenocortical insufficiency; N39.0 Urinary tract infection, site not specified; I48.19 Other persistent atrial fibrillation; I24.8 Other forms of acute ischemic heart disease; E87.1 Hypo-osmolality and hyponatremia; Z16.24 Resistance to multiple antibiotics; I50.23 Acute on chronic systolic (congestive) heart failure; Z20.828 Contact with and (suspected) exposure to other viral communicable diseases; B96.5 Pseudomonas (aeruginosa) (mallei) (pseudomallei) as the cause of diseases classified elsewhere; T50.2X5A Adverse effect of carbonic-anhydrase inhibitors, benzothiadiazides and other diuretics, initial encounter; I25.10 Atherosclerotic heart disease of native coronary artery without angina pectoris; D64.9 Anemia, unspecified; N18.9 Chronic kidney disease, unspecified; I25.5 Ischemic cardiomyopathy; G47.33 Obstructive sleep apnea (adult) (pediatric); N40.0 Benign prostatic hyperplasia without lower urinary tract symptoms; M19.90 Unspecified osteoarthritis, unspecified site; Z87.11 Personal history of peptic ulcer disease; Z79.01 Long term (current) use of anticoagulants; Z86.711 Personal history of pulmonary embolism; Z95.810 Presence of automatic (implantable) cardiac defibrillator; Z89.021 Acquired absence of right finger(s); Z95.5 Presence of coronary angioplasty implant and graft; Z96.653 Presence of artificial knee joint, bilateral; Z86.718 Personal history of other venous thrombosis and embolism; Z87.891 Personal history of nicotine dependence; E66.9 Obesity, unspecified; Z68.32 Body mass index [BMI] 32.0-32.9, adult; Z66 Do not resuscitate; D72.829 Elevated white blood cell count, unspecified
CPT/HCPCS: 36415; 51702; 71045; 71046; 71275; 80048; 80053; 80069; 81001; 83735; 83880; 84100; 84132; 84439; 84443; 84480; 84484; 85025; 85027; 85610; 85730; 87040; 87077; 87086; 87088; 87186; 87635; 93005; 94002; 94003; 94660; 96365; 96367; 96375; 96376; 97110; 97162; 97166; 97168; 97530; 97535; 99285; A9270; C9803; G0378; J0456; J0696; J1940; J3475; J7512; Q9967; U0003

== ENCOUNTER 2020-04-24 17:17 | Outpatient (NON) | payer MEDICARE, SELFPAY ==
[2020-04-24 17:43] LABS: Basophils Percent Auto 0.2 % (0.2-1.2); Eosinophils Percent Auto 0.2 % (0-4.4); Hematocrit 27.6 % (42.0-52.0); Hemoglobin 8.9 g/dL (14.0-18.0); Immature Granulocyte Absolute 0.43 K/mm3 (0.00-0.031); Immature Granulocyte Percent A 3.4 % (0-0.5); Lymphocytes Absolute Auto 1.37 K/mm3 (0.9-3.2); Lymphocytes Percent Auto 10.9 % (18.3-44.2); Mean Corpuscular HGB Conc 32.2 g/dl (32-36); Mean Corpuscular Hemoglobin 30.1 pg (26-34); Mean Corpuscular Volume 93.2 fl (80-100); Mean Platelet Volume 9.4 fl (7.4-10.4); Monocytes Absolute Auto 1.1 K/mm3 (0.1-0.6); Monocytes Percent Auto 8.6 % (2.6-8.5); Neutrophils Absolute Auto 9.7 K/mm3 (1.3-6.7); Neutrophils Percent Auto 76.7 % (45.5-73.1); Platelet Count Result 223 k/mm3 (150-375); Red Blood Count 2.96 M/mm3 (4.6-6.20); Red Cell Distribution Width 15.9 % (11.5-14.5); White Blood Count 12.6 K/mm3 (4.5-10.0)
[2020-04-24 17:44] LABS: INR 1.3
[2020-04-24 18:34] LABS: Anion Gap 1 mmol/L (8-16); Blood Urea Nitrogen 27 mg/dL (9-20); Calcium 8.1 mg/dL (8.4-10.2); Carbon Dioxide 31 mmol/L (22-30); Chloride 101 mmol/L (98-107); Estimated Glomerular Filt Rate > 60; Glucose 103 mg/dL (75-110); Potassium 4.5 mmol/L (3.4-5.0); Sodium 133 mmol/L (137-145)
== END 2020-04-24 17:18 ==
LOC: HOME HLTH 17:19
PROVIDERS: Visit Provider Internal Medicine
DX: I50.9 Heart failure, unspecified (principal); D64.9 Anemia, unspecified; D72.829 Elevated white blood cell count, unspecified; Z79.01 Long term (current) use of anticoagulants
CPT/HCPCS: 80048; 85025; 85610

== ENCOUNTER 2020-05-24 13:36 | Outpatient (NON) | payer MEDICARE, SELFPAY ==
[2020-05-24 14:37] LABS: Albumin Level 2.6 g/dL (3.5-5.1); Anion Gap 6 mmol/L (8-16); Blood Urea Nitrogen 23 mg/dL (9-20); Calcium 8.2 mg/dL (8.4-10.2); Carbon Dioxide 37 mmol/L (22-30); Chloride 91 mmol/L (98-107); Estimated Glomerular Filt Rate > 60; Glucose 86 mg/dL (75-110); Phosphorus 3.6 mg/dL (2.5-4.5); Potassium 3.1 mmol/L (3.4-5.0); Sodium 134 mmol/L (137-145)
== END 2020-05-24 13:37 ==
PROVIDERS: Visit Provider Nurse Practitioner Family
DX: I25.10 Atherosclerotic heart disease of native coronary artery without angina pectoris (principal); I50.33 Acute on chronic diastolic (congestive) heart failure; I48.91 Unspecified atrial fibrillation; E27.40 Unspecified adrenocortical insufficiency
CPT/HCPCS: 80069

== ENCOUNTER 2020-05-29 13:21 | Outpatient (NON) | payer MEDICARE, SELFPAY ==
[2020-05-29 13:40] LABS: Basophils Absolute Auto 0.02 K/mm3 (0.00-0.10); Basophils Percent Auto 0.2 % (0.0-1.0); Eosinophils Absolute Auto 0.03 K/mm3 (0.02-0.50); Eosinophils Percent Auto 0.3 % (1.0-6.0); Hematocrit 28.7 % (37.0-46.0); Hemoglobin 9.3 g/dL (12.4-15.3); Immature Granulocyte Absolute 0.18 K/mm3 (0.00-0.00); Immature Granulocyte Percent A 1.7 % (0.0-0.0); Lymphocytes Absolute Auto 1.22 K/mm3 (1.10-4.50); Lymphocytes Percent Auto 11.7 % (18.0-42.0); Mean Corpuscular HGB Conc 32.4 g/dL (32.0-36.0); Mean Corpuscular Hemoglobin 29.2 pg (27.0-31.0); Mean Platelet Volume 9.6 fl (8.7-11.0); Monocytes Absolute Auto 0.61 K/mm3 (0.10-0.90); Monocytes Percent Auto 5.8 % (2.0-11.0); Neutrophils Absolute Auto 8.4 K/mm3 (1.7-7.2); Neutrophils Percent Auto 80.3 % (50.0-70.0); Platelet Count Result 334 K/mm3 (150-420); Red Blood Count 3.19 M/mm3 (4.70-6.10); Red Cell Distribution Width 16.3 % (11.6-14.4); White Blood Count 10.5 K/mm3 (4.8-10.8)
[2020-05-29 13:52] LABS: Prothrombin Time 52.2 Seconds (9.50-12.10)
[2020-05-29 14:01] LABS: Alanine Aminotransferase 65 U/L (16-63); Albumin Level 2.1 g/dL (3.4-5.0); Alkaline Phosphatase 101 U/L (46-116); Anion Gap 8 mmol/L (8-16); Aspartate Amino Transferase 61 U/L (15-37); Bilirubin,Total 0.4 mg/dL (0.00-1.00); Blood Urea Nitrogen 33 mg/dL (7-18); Calcium 8.4 mg/dL (8.5-10.1); Carbon Dioxide 32 mmol/L (21-32); Chloride 98 mmol/L (98-108); Estimated Glomerular Filt Rate 44; Glucose 114 mg/dL (70-99); Osmolality Calculated 294 mOsm/kg (285-295); Phosphorus 3.8 mg/dL (2.6-4.7); Potassium 2.9 mmol/L (3.5-5.1); Sodium 138 mmol/L (136-145); Total Protein 5.5 g/dL (6.4-8.2)
[2020-05-29 14:28] LABS: INR 5.2
== END 2020-05-29 13:22 ==
LOC: CHSHH 13:23
PROVIDERS: PCP Internal Medicine Nephrology; Visit Provider Nurse Practitioner Family
DX: I25.10 Atherosclerotic heart disease of native coronary artery without angina pectoris (principal); I50.33 Acute on chronic diastolic (congestive) heart failure; I48.91 Unspecified atrial fibrillation; E27.40 Unspecified adrenocortical insufficiency
CPT/HCPCS: 36415; 80053; 84100; 85025; 85610

== ENCOUNTER 2020-06-06 14:22 | Outpatient (CLI) | payer MEDICARE, SELFPAY ==
[2020-06-06 14:56] LABS: INR 3.5; Prothrombin Time 35.6 Seconds (11.1-14.7)
== END 2020-06-06 14:23 | disposition home or self-care (01) ==
PROVIDERS: PCP Nurse Practitioner Family; Visit Provider Nurse Practitioner Family
DX: Z51.81 Encounter for therapeutic drug level monitoring (principal); Z79.01 Long term (current) use of anticoagulants
CPT/HCPCS: 85610

== ENCOUNTER 2020-06-13 12:52 | Outpatient (RCR) | payer MEDICARE, SELFPAY ==
[2020-06-06 14:59] LABS: Albumin Level 2.7 g/dL (3.5-5.1); Anion Gap 1 mmol/L (8-16); Blood Urea Nitrogen 36 mg/dL (9-20); Calcium 8.7 mg/dL (8.4-10.2); Carbon Dioxide 33 mmol/L (22-30); Chloride 101 mmol/L (98-107); Estimated Glomerular Filt Rate 54; Glucose 87 mg/dL (75-110); Phosphorus 4.1 mg/dL (2.5-4.5); Potassium 4.7 mmol/L (3.4-5.0); Sodium 135 mmol/L (137-145)
[2020-06-13 13:58] LABS: INR 2.1; Prothrombin Time 24.2 Seconds (11.1-14.7)
[2020-06-13 14:00] LABS: Alanine Aminotransferase 40 U/L (4-50); Alkaline Phosphatase 76 U/L (38-126); Anion Gap 5 mmol/L (8-16); Aspartate Amino Transferase 56 U/L (17-59); Bilirubin,Total 0.7 mg/dL (0.2-1.3); Blood Urea Nitrogen 33 mg/dL (9-20); Calcium 8.8 mg/dL (8.4-10.2); Carbon Dioxide 35 mmol/L (22-30); Chloride 94 mmol/L (98-107); Cholesterol 113 mg/dL (0-200); Estimated Glomerular Filt Rate > 60; Glucose 78 mg/dL (75-110); HDL Direct 36 mg/dL; Phosphorus 4.7 mg/dL (2.5-4.5); Potassium 2.9 mmol/L (3.4-5.0); Sodium 134 mmol/L (137-145); Triglycerides 71 mg/dL (<150)
[2020-06-13 14:10] LABS: LDL Cholesterol Direct 56 mg/dL
== END 2020-09-04 23:59 | disposition home or self-care (01) ==
LOC: HOME HLTH 12:52
PROVIDERS: PCP Nurse Practitioner Family; Visit Provider Internal Medicine Nephrology
DX: N19 Unspecified kidney failure (principal); E27.40 Unspecified adrenocortical insufficiency; I48.91 Unspecified atrial fibrillation; I25.10 Atherosclerotic heart disease of native coronary artery without angina pectoris; I50.33 Acute on chronic diastolic (congestive) heart failure
CPT/HCPCS: 80053; 80061; 80069; 85610

== ENCOUNTER 2020-06-19 13:52 | Outpatient (NON) | payer MEDICARE, SELFPAY ==
[2020-06-19 14:19] LABS: INR 1.7; Prothrombin Time 18.4 Seconds (9.50-12.10)
[2020-06-19 14:38] LABS: Alanine Aminotransferase 28 U/L (16-63); Albumin Level 2.3 g/dL (3.4-5.0); Alkaline Phosphatase 75 U/L (46-116); Anion Gap 3 mmol/L (8-16); Aspartate Amino Transferase 30 U/L (15-37); Bilirubin,Total 0.4 mg/dL (0.00-1.00); Blood Urea Nitrogen 30 mg/dL (7-18); Carbon Dioxide 31 mmol/L (21-32); Chloride 100 mmol/L (98-108); Estimated Glomerular Filt Rate 54; Glucose 101 mg/dL (70-99); Osmolality Calculated 284 mOsm/kg (285-295); Potassium 4.3 mmol/L (3.5-5.1); Sodium 134 mmol/L (136-145); Total Protein 5.7 g/dL (6.4-8.2)
== END 2020-06-19 13:53 ==
LOC: CHSHH 13:55
PROVIDERS: Visit Provider Nurse Practitioner Family
DX: I25.10 Atherosclerotic heart disease of native coronary artery without angina pectoris (principal); I50.33 Acute on chronic diastolic (congestive) heart failure; I48.91 Unspecified atrial fibrillation; E27.40 Unspecified adrenocortical insufficiency
CPT/HCPCS: 36415; 80053; 85610

== ENCOUNTER 2020-06-25 14:05 | Outpatient (NON) | payer MEDICARE, SELFPAY ==
[2020-06-25 14:39] LABS: Anion Gap 9 mmol/L (8-16); Blood Urea Nitrogen 26 mg/dL (7-18); Calcium 8.8 mg/dL (8.5-10.1); Carbon Dioxide 31 mmol/L (21-32); Chloride 97 mmol/L (98-108); Estimated Glomerular Filt Rate 54; Glucose 106 mg/dL (70-99); Osmolality Calculated 288 mOsm/kg (285-295); Potassium 2.8 mmol/L (3.5-5.1); Sodium 137 mmol/L (136-145)
== END 2020-06-25 14:06 ==
LOC: CHSLAB 14:10
PROVIDERS: Visit Provider Nurse Practitioner Family
DX: I25.10 Atherosclerotic heart disease of native coronary artery without angina pectoris (principal); I50.33 Acute on chronic diastolic (congestive) heart failure; I48.91 Unspecified atrial fibrillation; E27.40 Unspecified adrenocortical insufficiency
CPT/HCPCS: 36415; 80048; 85610

== ENCOUNTER 2020-07-03 13:31 | Outpatient (NON) | payer MEDICARE, SELFPAY ==
[2020-07-03 14:12] LABS: Anion Gap 3 mmol/L (8-16); Blood Urea Nitrogen 29 mg/dL (7-18); Carbon Dioxide 34 mmol/L (21-32); Chloride 99 mmol/L (98-108); Estimated Glomerular Filt Rate 42; Glucose 62 mg/dL (70-99); Magnesium 1.8 mg/dL (1.8-2.4); Osmolality Calculated 285 mOsm/kg (285-295); Potassium 3.6 mmol/L (3.5-5.1); Sodium 136 mmol/L (136-145)
[2020-07-03 14:17] LABS: INR 2.3; Prothrombin Time 24.5 Seconds (9.50-12.10)
== END 2020-07-03 13:32 ==
PROVIDERS: PCP Nurse Practitioner Family; Visit Provider Internal Medicine Cardiovascular Disease
DX: I25.10 Atherosclerotic heart disease of native coronary artery without angina pectoris (principal); I50.33 Acute on chronic diastolic (congestive) heart failure; I48.91 Unspecified atrial fibrillation; E27.40 Unspecified adrenocortical insufficiency
CPT/HCPCS: 36415; 80048; 83735; 85610

== ENCOUNTER 2020-07-31 15:19 | Outpatient (NON) | payer MEDICARE, SELFPAY ==
[2020-07-31 15:46] LABS: Hematocrit 30.3 % (42.0-52.0); Hemoglobin 9.6 g/dL (14.0-18.0); Mean Corpuscular HGB Conc 31.7 g/dl (32-36); Mean Corpuscular Hemoglobin 28.2 pg (26-34); Mean Corpuscular Volume 88.9 fl (80-100); Mean Platelet Volume 10.1 fl (7.4-10.4); Platelet Count Result 269 k/mm3 (150-375); Red Blood Count 3.41 M/mm3 (4.6-6.20); Red Cell Distribution Width 16.4 % (11.5-14.5); White Blood Count 9.3 K/mm3 (4.5-10.0)
[2020-07-31 15:56] LABS: INR 2.9; Prothrombin Time 30.8 Seconds (11.1-14.7)
[2020-07-31 15:59] LABS: Alanine Aminotransferase 19 U/L (4-50); Albumin Level 3.3 g/dL (3.5-5.1); Alkaline Phosphatase 80 U/L (38-126); Anion Gap 6 mmol/L (8-16); Aspartate Amino Transferase 30 U/L (17-59); Bilirubin,Total 0.6 mg/dL (0.2-1.3); Blood Urea Nitrogen 49 mg/dL (9-20); Calcium 9.1 mg/dL (8.4-10.2); Carbon Dioxide 36 mmol/L (22-30); Chloride 94 mmol/L (98-107); Estimated Glomerular Filt Rate 45; Glucose 93 mg/dL (75-110); Magnesium 1.8 mg/dL (1.6-2.3); Potassium 3.4 mmol/L (3.4-5.0); Sodium 136 mmol/L (137-145)
== END 2020-07-31 15:20 ==
LOC: HOME HLTH 15:27
PROVIDERS: PCP Nurse Practitioner Family; Visit Provider Nurse Practitioner Family
DX: I50.33 Acute on chronic diastolic (congestive) heart failure (principal); I48.91 Unspecified atrial fibrillation; N18.9 Chronic kidney disease, unspecified
CPT/HCPCS: 80053; 83735; 85027; 85610

== ENCOUNTER 2020-09-01 14:25 | Emergency (ER) | payer MEDICARE, SELFPAY ==
[2020-09-01] VITALS (13 sets, daily range): BP systolic 99–130; BP diastolic 36–95; PULSE 70–108; RESP 19–26; TEMP 36.9; O2SAT 97–100
--- NOTE | ~2020-09-01 | XR_ITS ---
EXAMINATION: XR chest PICC line INDICATION: PICC insertion TECHNIQUE: Portable AP chest at 1832 hours COMPARISON: 04/15/2020 FINDINGS: A right upper extremity PICC is followed as far as the mid superior vena cava. The dual jesusita d pacemaker of the left chest wall has been replaced with a triple lead pacemaker. There are diffuse opacities throughout all lung zones. Moderate-sized pleural effusions are present. Cardiomegaly is no yanick. There is no pneumothorax. IMPRESSION: 1. Right upper extremity PICC followed as far as the mid superior vena cava. 2. Diffuse lung disease, consistent with pulmonary edema and/or pneumonia. 3. Moderate-sized pleural effusions. 4. Cardiomegaly. Reviewed, dictated and finalized at location A. [employer] [employer]
--- NOTE | 2020-09-01 15:02 | ED.GENADULT ---
HPI - General Adult General Chief complaint: Unspecified Stated complaint: PICC LINE FELL OUT Time Seen by Provider: 09/01/20 14:36 Source: patient and family Mode of arrival: EMS Limitations: physical limitation History of Present Illness HPI narrative: Patient is a 79-year-old male sent here by hospice for replacement of his PICC line. According to the son while they were trying to clean up the area and hooked him back up to his medication, dobutamine, which he needs continuously due to his severe heart failure and blood pressure support, the PICC line actually was pulled out. Patient is in hospice due to severe heart failure and hypotension. Related Data Home Medications Medication Instructions Recorded Confirmed Brilinta 90 mg PO BID 03/29/20 03/29/20 ascorbic acid (vitamin C) [Vitamin 500 mg PO DAILY 03/29/20 03/29/20 C] atorvastatin 80 mg PO DAILY 03/29/20 03/29/20 ezetimibe 10 mg PO DAILY 03/29/20 03/29/20 ferrous sulfate 325 mg PO DAILY 03/29/20 03/29/20 furosemide 20 mg PO DAILY 03/29/20 03/29/20 furosemide [Lasix] 40 mg PO DAILY 03/29/20 03/29/20 sertraline 50 mg PO DAILY 03/29/20 03/29/20 tamsulosin 0.4 mg PO DAILY 03/29/20 03/29/20 vitamin B complex 1 tablet PO DAILY 03/29/20 03/29/20 warfarin 3 mg PO DAILY 03/29/20 03/29/20 Allergies Allergy/AdvReac Type Severity Reaction Status Date / Time No Known Allergies Allergy Verified 03/29/20 12:15 Review of Systems Review of Systems: All systems reviewed & are unremarkable except as noted in HPI and below Constitutional: Constitutional: Denies fever(s) and Denies headache(s) Cardiovascular: Cardiovascular: Denies chest pain and Denies chest pain at rest Respiratory: Respiratory: Reports as per HPI and Reports no additional respiratory complaints Gastrointestinal: Gastrointestinal: Reports as per HPI, Reports no additional gastrointestinal complaints and Denies abdominal pain Musculoskeletal: Musculoskeletal: Reports no additional musculoskeletal complaints Integumentary/Breasts: Skin/Breast: Reports system reviewed and no additional complaints, except as docu PMFSH Past Medical History Medical History Adrenal insufficiency Atrial fibrillation Benign prostatic hyperplasia Chronic anemia Chronic kidney disease Congestive heart failure Coronary artery disease With history of stents. Current use of long-term anticoagulation On long-term warfarin for history of DVT and PE. 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 History of deep venous thrombosis or pulmonary embolus History of both DVT and PE, on long-term warfarin. Obstructive sleep apnea on CPAP Osteoarthritis Peptic ulcer (~1959) Shingles (~2011) Ventricular tachycardia Status post ICD insertion. Surgical History Surgical History History of bilateral knee arthroplasty Right: 04/11/2018. Left: 02/26/2020. History of cardiac catheterization (~01/2019) With history of stents. History of loop recorder Presence of combination internal cardiac defibrillator (ICD) and pacemaker (~01/2019) Family History Family History Father Bone cancer Social History Social History Social History: Surrogate decision maker: Kassie Garcia, spouse. Code status: Do not resuscitate. Smoking status: Former smoker Tobacco type: cigarettes and cigars Second hand tobacco smoke exposure: Yes Alcohol intake: never Substance use: never Additional living arrangements comments: Resides in [place] with his . 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 Gender identity (if verbalized by the patient): Male Spiritual care concerns: No Exam Const: General: cooperative, well developed, alert
--- NOTE | 2020-09-01 21:05 | PC.NURSE ---
1915: Beth was called to transport/return patient to residence. ETA 2100. 210: Beth called with updated ETA...2230.
--- NOTE | 2020-09-01 21:32 | PC.NURSE ---
2115: Called [facility] to transport, accepted, ETA approximately 30-45 minutes. 2130: Cancelled [facility]
== END 2020-09-01 22:09 | disposition hospice, home (50) ==
PROVIDERS: Emergency Provider Emergency Medicine; PCP Nurse Practitioner Family
DX: Z45.2 Encounter for adjustment and management of vascular access device (principal); I50.9 Heart failure, unspecified; I13.0 Hypertensive heart and chronic kidney disease with heart failure and stage 1 through stage 4 chronic kidney disease, or unspecified chronic kidney disease; N18.9 Chronic kidney disease, unspecified; I48.91 Unspecified atrial fibrillation; Z79.01 Long term (current) use of anticoagulants; I25.10 Atherosclerotic heart disease of native coronary artery without angina pectoris; Z95.5 Presence of coronary angioplasty implant and graft; Z86.718 Personal history of other venous thrombosis and embolism; Z86.711 Personal history of pulmonary embolism; G47.33 Obstructive sleep apnea (adult) (pediatric); M19.90 Unspecified osteoarthritis, unspecified site; Z96.653 Presence of artificial knee joint, bilateral; Z87.891 Personal history of nicotine dependence
CPT/HCPCS: 36569; 99284; C1751